=== PATIENT | male | born 1960 | race Caucasian/White ===

== ENCOUNTER 2020-01-22 15:34 | Inpatient (IN) | payer OTHER, SELFPAY ==
[2020-01-22] VITALS (7 sets, daily range): BP systolic 128–174; BP diastolic 86–98; PULSE 76–109; RESP 16–24; TEMP 35.5–36.7; O2SAT 94–98; BMI 38.7; BMI 35.9
--- NOTE | 2020-01-22 15:54 | EKG12_ITS ---
Test Reason : GEN ILLNESS Blood Pressure : / mmHG Vent. Rate : 085 BPM Atrial Rate : 085 BPM P-R Int : 154 ms QRS Dur : 118 ms QT Int : 388 ms P-R-T Axes : 061 236 087 degrees QTc Int : 461 ms Normal sinus rhythm Normal ECG Confirmed by MEENU JACKMAN, KALLI ([id number]), editor farm journal NATHANAEL VALENCIA ([id number]) on 01/24/2020 1:27:35 PM Referred By: Prasad Sadler Confirmed By:KALLI CORRIGAN MD
--- NOTE | 2020-01-22 15:54 | CT_ITS ---
STUDY: CT BRAIN WITHOUT CONTRAST REASON FOR EXAM: Male, 59 years old. OFF BALANCE RADIATION DOSAGE (If Supplied By Facility): CTDIvol = ( 44.99 ) mGy, DLP = ( 829.85 ) mGycm TECHNIQUE: Transaxial CT imaging of the brain was performed without administration of intravenous contrast material. Individualized dose optimization techniques were used for this CT. COMPARISON: No relevant priors. FINDINGS: Normal soft tissue structures. Normal calvarium. Normal size ventricles and extra-axial spaces for the patient''s age. Normal white matter tracts of the cerebral hemispheres. Normal basal ganglia and thalami. Normal brainstem. Normal cerebellum. There is no intracranial hemorrhage. There are no findings of an acute ischemic infarction. Normal visualized paranasal sinuses. CT/Brain/Head without Contrast IMPRESSION: Normal unenhanced CT scan of the brain. Electronically Signed: Colin Hendricks MD (Brooks) at 16:25 EDT , Service support ,
--- NOTE | 2020-01-22 15:58 | ED.DCSUM_ITS ---
- ER Visit Summary Date of Service: 01/22/20 Chief Complaint: Episode of diaphoresis and just not feeling well. History of Present Illness: The patient is a 59 M history of borderline diabetes diagnosed years ago. Says he has no primary care physician and has not seen a physician for 6 years. Currently takes no medications. Also has high cholesterol. Patient states he went outside today and became diaphoretic around 10 AM. Really denies any chest pain. No headache. No head trauma. He is currently on no blood thinners or any other medication. Sitting up mildly short of breath and had some cold chills. Also states that he may be a little off balance today. He denies any history of stroke or prior cardiac disease. He does smoke half pack cigarettes a day. He denies any nausea, vomiting, diarrhea or melena. Physical Examination: Middle-aged male vital signs stable afebrile. Pulse ox 97% room air no signs hypoxia. Patient does not look septic or toxic. No acute distress. H EENT exam unremarkable. Pupils round react light extra motions are intact. Eyes left upper eyelid is a soft tissue tumor. He states it is been there for years. I explained to him this should be evaluated for possible skin cancer. Pupils are unreactive laser motions are intact. Normal speech. No facial droop. Neck nontender. Lungs clear to auscultation bilaterally. Heart regular rhythm no murmur. Chest were nontender. Abdomen soft nontender. Normal bowel sounds no peritoneal signs. Reducible hernia around the umbilicus. Not strangulated nor incarcerated. Not tender. Patient is moving all 4 extremities. 5/5 device engineer strength bilaterally. Dorsi plantarflexion intact. Fingertip to nose and [id number] within normal limits. No obvious ataxia. Neurologically is awake and alert with no focal motor or sensory deficits. NIH is 0. Test Results: Chest x-ray portable 1 view read both myself the radiologist shows no acute abnormality normal cardiac silhouette mediastinum. CT brain shows no acute abnormality. Read by the radiologist and reviewed by me. EKG normal sinus rhythm rate 85 no acute signs of CO or ischemia. CBC white count of 7. Hemoglobin 16. Electrolytes unremarkable glucose 194 normal creatinine and gap. Troponin elevated 14.1 consistent with a non-ST elevation CO. Patient was also walked by nursing staff. And he had no ataxia. This was done because he was stating he felt like he was off balance. Emergency Department Course and Treatment: Middle-aged male who does not have a primary care physician and has not seen a physician for years. Had an episode of being diaphoretic today. Really has an unremarkable exam at this time. Screening labs to be obtained. Undergo a cardiac work-up and a CT of his brain. Exam itself is pretty benign at this time. With no focal motor deficits. Treatment Plan: Repeat exam patient is doing well at 1837. He had I discussed all his test results of the hospitalist on page for admission Disposition: Admission Impression: Acute diaphoresis secondary to non-ST elevation CO History of diabetes Medical noncompliance This note was generated with [employer] dictation software. It may contain incorrect words, spelling, and punctuation that were not noted in review of the chart prior to signing ED Disposition - Plan for ED Patient: Referrals: Care Physician,No Primary [Primary Care Provider] -
--- NOTE | 2020-01-22 16:17 | RAD_ITS ---
STUDY: X-RAY CHEST REASON FOR EXAM: Male, 59 years old. CHILLS, INTERMITTENT RIGHT ARM NUMBNESS AND TINGLING, AND ABD PAIN TECHNIQUE: AP COMPARISON: None. FINDINGS: There is a granuloma in the left lung base. There is no demonstrated pleural abnormality. Normal size heart. Normal mediastinum and domenic. Normal visualized pulmonary arteries. There is atherosclerotic calcification of the aortic arch with tortuosity. Normal visualized thoracic spine. Normal visualized ribs, clavicles, and shoulders. There is no demonstrated abnormality of the visualized soft tissue structures of the upper abdomen. RAD/Chest 1 View (Portable) IMPRESSION: Nonacute portable x-ray examination of the chest. Electronically Signed: Colin Hendricks MD (Brooks) at 16:26 EDT , Service support ,
[2020-01-22 17:37] LABS: Absolute Lymphocyte Count 1.36 X10^3/uL (0.83-4.51); Absolute Neutrophil Count 5.5 X10^3/uL (2.0-7.7); Basophil# 0.03 X10^3/uL; Basophil% 0.4 % (0-1); Eosinophil# 0.01 X10^3/uL; Eosinophils% 0.1 % (0-5); Hematocrit 48.9 % (40-54); Hemoglobin 16.8 g/dL (13.0-16.5); Lymphocyte # 1.36 X10^3/ul (4.0); Lymphocyte % 18.9 % (19-41); Mean Corp Hgb Conc 34.4 g/dL (32-36); Mean Corpuscular Volume 93.1 fL (80-94); Mean Platelet Vol. 9.7 fl (6.2-12.0); Monocyte% 4.2 % (0-10); NRBC Flagged by Analyzer 0 % (0-5); Neutrophil # 5.47 X10^3/uL (2.7-7.7); Neutrophil % 76.1 % (47-70); Platelet Count 113 K/mm3 (150-450); RBC Distribution Width CV 12.2 % (11.6-14.6); RBC Distribution Width SD 42.1 fl (35.1-43.9); Red Blood Count 5.25 M/mm3 (4.6-6.2); White Blood Count 7.2 K/mm3 (4.4-11.0)
[2020-01-22 18:06] LABS: Anion Gap 7 (5-15); BUN 10 mg/dL (7-18); BUN/Creat Ratio 9.5 RATIO (10-20); Calcium,Total 8.9 mg/dL (8.5-10.1); Chloride 102 mmol/L (98-107); Creatinine, Serum 1.05 mg/dL (0.70-1.30); EST Glomerular Filtration Rate 77 mL/min (>60); Est Glom Filt Rate - Afr Amer 94 mL/min (>60); Glucose 194 mg/dL (74-106); Potassium 4.3 mmol/L (3.5-5.1); Sodium Level 135 mmol/L (136-145)
--- NOTE | 2020-01-22 18:49 | HP.PCM_ITS ---
Problem List (1) NSTEMI (non-ST elevated myocardial infarction) Status: Acute (2) Hyperglycemia Status: Acute (3) Tobacco abuse Status: Acute (4) Prediabetes Status: Acute History of Present Illness Date of Admission: 01/22/20 Chief Complaint: Right shoulder pain. The patient is a 59 year old M with a significant history of prediabetes; tobacco abuse; hypertension and hyperlipidemia who presents to the emergency department with right shoulder pain. He rates his right shoulder pain as a 6 out of 10. The pain radiates to his right chest. The pain is aching. The pain is aggravated by moving and by taking a deep breath. The pain started on the morning of the day of admission. Actually his symptoms started 1 hour prior to his shoulder pain and chest pain. His symptoms started with diaphoresis while smoking. Later on he developed chills and malaise. Also he felt off balance and hard to hold onto a wall for about 3 times. Further he had shortness of breath. Also he felt a tingling sensation in his right. He had a decreased registered client associate strength in his right hand. Of note he has a history of right surgery but this continues to his right arm and to his right hand was new. He denied any nausea or vomiting. At emergency department his troponin was found to be severely elevated. Past Medical History Medical History: Medical History (Last Updated 01/22/20 @ 19:[address] Prasad Sadler MD) Borderline diabetes R73.03 Hyperlipidemia E78.5 Hypertension I10 Allergies No Known Allergies Allergy (Verified 01/22/20 15:36) Home Medications: Ambulatory Orders Medication Instructions Recorded NK 01/22/20 Surgical History: - - Gallbladder surgery; bilateral eye surgery; right arm surgery; tympanoplasty; surgery on scrotum; and Left knee surgery Smoking Status: Current every day smoker Tobacco Use: Cigarettes - *Family History Maternal History Items: Heart Disease - His mother had a heart attack at about age 55. At about age 60 his mother had CABG. Paternal History Items: Diabetes, Hypertension, - - Hyperlipidemia Review of Systems Constitutional: Reports: Chills, Malaise. Denies: Fever, Weight Change HEENT: Denies: Head Aches, Sinus Congestion, Sinus Drainage Cardiovascular: Reports: Chest Pain. Denies: Palpitations Respiratory: Denies: Cough, Shortness of breath at rest, Sputum production Gastrointestinal: Denies: Abdominal Pain, Nausea, Vomiting Genitourinary: Denies: Dysuria Musculoskeletal: Denies: Joint Pain, Joint Tenderness Skin: Denies: Rash, Wounds Neurological: Reports: Tingling. Denies: Focal weakness, Numbness Psychiatric: Denies: Anxiety, Depression, Homicidal Ideations, Suicidal Ideations Hematologic/ Lymphatic: Denies: Easy Bruising, Easy Bleeding VTE Information - Inpt Only VTE Present on Admission: No VTE Mechan Device Prophylaxis: None VTE Pharm Prophylaxis ordered?: No Reason prophylaxis not ordered:: Treatment Not Indicated - Therapeutic dose of Lovenox was ordered at the ED for non-STEMI. Patient Problems: Active and Suspected Problems (Last Updated 01/22/20 @ 19:[address] Prasad Sadler MD) NSTEMI (non-ST elevated myocardial infarction) (Acute) Hyperglycemia (Acute) Tobacco abuse (Acute) Prediabetes (Acute) - Physical Exam Vitals/I&O's: Vital Signs Temp Pulse Resp BP Pulse Ox 95.9 F L 78 22 H 128/89 H 95 01/22/20 15:36 01/22/20 17:33 01/22/20 17:33 01/22/20 17:33 01/22/20 17:33 Oxygen Delivery Method Room Air Weight: 115.666 kg Body Mass Index (BMI) 38.7 General: Alert, Oriented x3, Cooperative HEENT: Atraumatic, PERRLA, EOMI, Normocephalic, - - Ulcer on left eyelid Neck: Supple, No JVD, Negative Carotid Bruits Lungs: Clear to auscultation, Normal air movement, No rhonchi, No wheeze, No rales Cardiovascular: Regular rate, Regular Rhythm, Normal S1, Normal S2, No murmurs Abdomen: Bowel Sounds Present, Soft, Non Tender Extremities: No edema, Capillary Refill Less than 3 Seconds Skin: No rashes, No breakdown Musculoskeletal: No Tenderness to Palpation of Joints or Extremities Neurological: Cranial nerves II-XII grossly intact Psych/Mental Status: Normal Affect, Appropriate Laboratory Results 01/22/20 17:30: WBC 7.2, RBC 5.25, Hgb 16.8 H, Hct 48.9, MCV 93.1, MCH 32.0, MCHC 34.4, RDW Std Deviation 42.1, RDW Coeff of Benitez 12.2, Plt Count 113 L, MPV 9.7, Immature Gran % (Auto) 0.300, Neut % (Auto) 76.1 H, Lymph % (Auto) 18.9 L, [place] % (Auto) 4.2, Eos % (Auto) 0.1, Baso % (Auto) 0.4, Absolute Neuts (auto) 5.5, Absolute Lymphs (auto) 1.36, Nucleated RBC % 0 01/22/20 17:30: Sodium 135 L, Potassium 4.3, Chloride 102, Carbon Dioxide 26.0, Anion Gap 7, BUN 10, Creatinine 1.05, Estim Creat Clear Calc 75.10, Est GFR (MDRD) Af Amer 94, Est GFR (MDRD) Non-Af 77, BUN/Creatinine Ratio 9.5 L, Glucose 194 H, Calcium 8.9, Troponin I 14.100 H* Assessment/Plan All Active Problems (Last Updated 01/22/20 @ 19:[address] Prasad Sadler MD) NSTEMI (non-ST elevated myocardial infarction) (Acute) Hyperglycemia (Acute) Tobacco abuse (Acute) Prediabetes (Acute) The patient is a 59 year old M with a significant history of prediabetes; tobac co abuse; hypertension and hyperlipidemia who presents to the emergency department with right shoulder pain; right chest pain; diaphoresis;chills; malaise; feeling off balance; right arm tingling and decreased registered client associate strength in the right hand and who was found to have severely elevated troponin.. Non-ST elevation KS Place on a monitored bed at progressive care unit on telemetry. CXR image independently visualized by myself and by radiologist showed no acute cardiopulmonary process. EKG tracing was independently visualized. EKG tracing showed sinus rhythm with no ST or T wave abnormalities. Brain CT at the ED was unremarkable. Aspirin 325 mg x 1 was ordered at emergency department. ASA 81 mg p.o. daily ordered SL NTG 0.4 mg prn as needed for chest pain ordered Morphine as needed for pain ordered Emergent department doctor discussed the case with cardiology: Therapeutic dose of Lovenox x1 and n.p.o. after midnight was recommended. We will check lipid panel. Statin: We will start on Lipitor 40 mg nightly. Serial cardiac enzymes ordered Stat EKG as needed for chest pain Inpatient cardiology consult. Hypertension Not on any home medication. PRN labetalol ordered. Hyperlipidemia Lipitor ordered. Tobacco abuse Counseled Nicotine patch prescribed Hyperglycemia Reported history of borderline diabetes. Check A1c. Cardiac diet; calorie restricted. Since patient is being kept on n.p.o. after midnight we will put patient on Accu-Chek with low-dose correction scale every 6 hrsas needed. DVT prophylaxis. Received therapy dose of Lovenox in the emergency department. Inpatient E&M: [id number] Init Hosp L3
[2020-01-22] MEDS: Aspirin 325 MG Tablet PO (19:21)
[2020-01-22] MEDS: Enoxaparin 120 MG/0.8 ML Syringe SC (19:31)
--- NOTE | 2020-01-22 19:41 | EKG12_ITS ---
Test Reason : AM EKG Blood Pressure : / mmHG Vent. Rate : 085 BPM Atrial Rate : 085 BPM P-R Int : 148 ms QRS Dur : 108 ms QT Int : 370 ms P-R-T Axes : 045 207 114 degrees QTc Int : 440 ms Normal sinus rhythm Nonspecfic T- wave abnormality Abnormal ECG Confirmed by KATHERINE JACKMAN, MILTON ([id number]), publication editor NATHANAEL VALENCIA ([id number]) on 01/26/2020 2:05:12 PM Referred By: Prasad Sadler Confirmed By:MILTON MURPHY MD
[2020-01-22] MEDS: Atorvastatin Calcium 40 MG Tablet PO (21:59)
[2020-01-23] VITALS (18 sets, daily range): BP systolic 106–148; BP diastolic 63–90; PULSE 70–96; RESP 12–24; TEMP 36.6–36.9; O2SAT 94–98
[2020-01-23 00:06] LABS: Bedside Glucose 158 mg/dL (70-110)
[2020-01-23] MEDS: 0.9% Saline Lock 10 ML Syringe IV ×3 (04:54→21:38)
[2020-01-23 05:06] LABS: International Normalized Ratio 1.1; Prothrombin Time (Protime)PT. 13.8 SECONDS (11.7-14.9)
[2020-01-23 05:14] LABS: Cholesterol 169 mg/dL (200); High Density Lipoprotein 19 mg/dL; Triglycerides 272 mg/dL; Very Low Density Lipoprotein 54 mg/dL (5-40)
--- NOTE | 2020-01-23 05:55 | EKG12_ITS ---
Test Reason : AM EKG Blood Pressure : / mmHG Vent. Rate : 068 BPM Atrial Rate : 068 BPM P-R Int : 146 ms QRS Dur : 114 ms QT Int : 398 ms P-R-T Axes : 065 205 112 degrees QTc Int : 423 ms Normal sinus rhythm Nonspecific T wave abnormality Abnormal ECG When compared with ECG of 22-JAN-2020 20:19, MANUAL COMPARISON REQUIRED, DATA IS UNCONFIRMED Confirmed by RACHAEL JACKMAN, PRITI ([id number]), restaurant expeditor FRANTZ SMALLS ([id number]) on 02/02/2020 1:07:20 PM Referred By: Prasad Sadler Confirmed By:OLIVERIO CANO MD
[2020-01-23] MEDS: Aspirin 81 MG TAB.CHEW PO (06:25)
[2020-01-23 07:00] LABS: Bedside Glucose 190 mg/dL (70-110)
--- NOTE | 2020-01-23 07:38 | CON.PCM_ITS ---
Reason for Consult Date of Consultation: 01/23/20 Reason for Consultation: Abnormal cardiac enzymes History of Present Illness: The patient is a 59 year old M with no definitive previous medical history other than borderline diabetes, borderline hypertension and possibly hyperlipidemia. He presented to the hospital yesterday after complaining of fatigue as well as diaphoresis. He had woken up the morning before and just felt bad and laid in bed most of the day. Towards the end of the day he decided to present to the emergency room for further evaluation and management. He has had no recent sick contacts. He denies any chest pain paroxysmal nocturnal dyspnea or pedal edema he is not had any palpitations. In the emergency room he was seen and did not have any EKG changes. His cardiac troponin was however noted to be elevated he was given aspirin and admitted. Cardiology was asked to see him. [] Past Medical History Allergies/Adverse Reactions: Allergies No Known Allergies Allergy (Verified 01/22/20 15:36) Home Medications: Ambulatory Orders Medication Instructions Recorded NK 01/22/20 Surgical History: - - Gallbladder surgery; bilateral eye surgery; right arm surgery; tympanoplasty; surgery on scrotum; and Left knee surgery - *Family History Maternal History Items: Heart Disease - His mother had a heart attack at about age 55. At about age 60 his mother had CABG. Paternal History Items: Diabetes, Hypertension, - - Hyperlipidemia Smoking Status: Current every day smoker Tobacco Use: Cigarettes Alcohol: None Drugs: None Review of Systems - Review of Systems General: Reports: Fatigue, Malaise. Denies: Fever, Night Sweats HEENT: Denies: Vision Change Cardiovascular: Denies: Chest Discomfort, Shortness of Breath, Orthopnea, PND, Peripheral Edema, Palpitations, Lightheadedness, Dizziness, Near Syncope, Syncope Respiratory: Denies: Cough, Sputum Production, Hemoptysis Gastrointestinal: Denies: Hematemesis, Hematochezia, Melena Genitourinary: Denies: Dysuria, Hematuria Skin: Denies: Rash Neurological: Reports: Weakness. Denies: Dizziness Psychiatric: Denies: Anxiety Endocrine: Denies: Unexplained Weight Loss Hematologic/ Lymphatic: Denies: Anemia Subjectve: Middle-aged man in no distress Objective: Vital Signs Temp Pulse Resp BP Pulse Ox 98.3 F 77 16 121/90 H 96 01/23/20 04:51 01/23/20 04:51 01/23/20 04:51 01/23/20 04:51 01/23/20 04:51 Oxygen Flow Rate (L/min) 2 Oxygen Delivery Method Nasal Cannula Weight: 236 lb 5.369 oz Body Mass Index (BMI) 35.9 Intake and Output for Last 24 Hours 01/21/20 01/22/20 01/23/20 23:59 23:59 23:59 Intake Total 240 / 240 0 / 0 Balance 240 / 240 0 / 0 General: Awake, Alert, Oriented x 3 HEENT: PERRL, EOMI, Sclera Non Icteric Neck: Supple, Good ROM, No Lymph Node Enlargement Lungs: Clear to auscultation Cardiovascular: Regular Rhythm, Normal S1, Normal S2, No Murmurs, No Rubs, No Gallops Vascular: No Carotid Bruits, Normal Femoral Pulses, Normal Radial Pulses, Normal Dorsalis Pedal Pulse, Normal Posterior Tibial Pulses Abdomen: Bowel Sounds Present, Soft, Non Tender, No HSM, No Organomegaly Extremities: No Cyanosis, No Clubbing, No edema Musculoskeletal: No Erythema Skin: No Rashes Lymphatic: No Lymph Node Enlargement Neurological: No Focal Motor or Sensory Deficit Psych/Mental Status: Appropriate 01/22/20 17:30: WBC 7.2, RBC 5.25, Hgb 16.8 H, Hct 48.9, MCV 93.1, MCH 32.0, MCHC 34.4, Plt Count 113 L, MPV 9.7, Immature Gran % (Auto) 0.300, Neut % (Auto) 76.1 H, Lymph % (Auto) 18.9 L, [place] % (Auto) 4.2, Eos % (Auto) 0.1, Baso % (Auto) 0.4, Absolute Neuts (auto) 5.5, Nucleated RBC % 0 01/22/20 17:30: Sodium 135 L, Potassium 4.3, Chloride 102, Carbon Dioxide 26.0, Anion Gap 7, BUN 10, Creatinine 1.05, Est GFR (MDRD) Af Amer 94, Est GFR (MDRD) Non-Af 77, BUN/Creatinine Ratio 9.5 L, Glucose 194 H, Calcium 8.9, Troponin I 14.100 H* 01/22/20 20:40: Troponin I 43.750 H* 01/22/20 23:48: Troponin I 77.000 H* 01/23/20 04:48: PT 13.8, INR 1.1 01/23/20 04:48: Triglycerides 272 H, Cholesterol 169, LDL Cholesterol 96, VLDL Cholesterol 54 H, HDL Cholesterol 19 L 01/23/20 04:48: Troponin I 31.400 H* Rhythm: EKG: Normal sinus rhythm with no acute changes ECHO: Stress Test: Cardiac Cath: PCI: CT Surgery: Holter monitor: EPS: PPM: CXR: Chest CT Scan: Assessment/Plan 1. Non-ST elevation myocardial infarction * Patient presents with fatigue and is noted to have a markedly elevated troponin level suggestive of a non-ST elevation myocardial infarction. He has had no previous cardiac condition. Based on the above he likely has coronary artery disease and I would recommend that we investigate the above with a cardiac catheterization. * He has been administered aspirin and a statin * Will start beta-le * He will be taken to the Guidance Director within the next few hours and depending on the findings further recommendations will be made. * 2. Risk factor modification * He does have evidence of a markedly reduced HDL putting him at risk for significant coronary artery disease. * Would recommend aggressive risk factor modification. * * Thank you for allowing me to participate in the care of your patient. Please don't hesitate to call if any issues arise.
[2020-01-23] MEDS: 0.9% Normal Saline 1,000 ML 15 ML IV (08:15)
[2020-01-23] MEDS: Carvedilol 3.125 MG TABLET PO ×2 (08:24→21:47)
--- NOTE | 2020-01-23 08:35 | NURSING ---
new id band placed with corrected spelling first name. no questions voiced regarding heart cath plans this am. ns up and running to lt ac iv. pt up to void. denies any cp this am. o2 on at 2l per protocol. coreg given and bp remains elevated at 161/85. pt's sig other aware but probably will not come in per pt. pre angiogram checklist completed and consent signed and on chart. 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
[2020-01-23 08:36] LABS: Hemoglobin A1c 8.8 % (3.8-5.6)
--- NOTE | 2020-01-23 09:36 | CL.D_ITS ---
Patient Name: LOKI ENCARNACION Study Date: 01/23/2020 Performing: Molina Artis MD Ht: 68.11 inches 173 cm : 1960 Wt: 235.89 lbs 107 kg Age: 59 Gender: male BSA: 2.2 PROCEDURE(S) PERFORMED [id number]/LV CLINICAL PROFILE AND INDICATIONS Indications: ACS <= 24 hrs Heart Failure: None Stress/Imaging Stress/Image Study Performed: No CONCLUSIONS Coronary artery disease involving a recently occluded second obtuse marginal vessel and high-grade st enosis noted in the proximal right posterolateral vessel. Diffuse disease noted in the LAD.. RECOMMENDATIONS Referred for immediate PCI DESCRIPTION OF PROCEDURE The patient arrived to the procedure lab. The risks and benefits of the procedure as well as a full d escription of our services here and current unavailability of surgical backup were fully explained to the patient and/or their significant other prior to the catheterization. The Timeout was completed, verifying the correct patient and procedure. The patient's procedural site was prepped and draped in the usual fashion. Local anesthetic was given subcutaneously to right radial region with Lidocaine 2% . Using a modified Seldinger technique, arterial access was obtained via the right radial artery, a 6 Fr sheath was inserted. Left Coronary Artery selective angiography was performed in multiple views u sing a 5 Fr. 4.0 [place] catheter. Right Coronary Artery selective angiography was then performed in mu ltiple views using a 5 Fr. JR 5 catheter. Left Ventriculography was performed in CH[place]RI[place] projection using a 5 Fr. Pigtail catheter. LV to AO pullback pressures were then recorded. CORONARY ANGIOGRAPHY DOMINANCE: Right Dominant LEFT HEART ASSESSMENT Left Ventricular Ejection Fraction: by LV Gram 45 % Global Hypokinesis - Mild Depressed Left Ventricular systolic function LEFT MAIN: Angiographically normal LEFT ANTERIOR DESCENDING ARTERY: Diffusely diseased in multiple areas with the proximal being no more than 50% in the distalmost 70% stenosis CIRCUMFLEX ARTERY: Mild luminal irregularities less than 30% OM 2: Proximal - is occluded RAMUS: Mild luminal irregularities less than 30% RIGHT CORONARY ARTERY: PROX RCA: Mild luminal irregularities less than 30% MID RCA: Mild luminal irregularities less than 30% RT PLV: 80 % Stenosis COMPLICATIONS PROCEDURE MEDICATIONS Versed 1 mg IV Fentanyl 50 mcg IV Versed 1 mg IV Oxygen: 2 L/min via nasal cannula Heparin diluted in 23cc Heparinized saline. Patient given 10cc IA of this solution. 01/23/2020 08:58: 39 Heparin 6000 unit(s) IV 01/23/2020 09:23:18 Verapamil 2.5mg, Ntg 100mcgs, 2000 units of Heparin diluted in 23cc Heparinized saline. Patient give n 10cc IA of this solution. 01/23/2020 08:58:39 SUMMARY OF HEMODYNAMIC DATA Time AIR REST ECG 08:42:04 AO 144/107 (124) SA 09:02:12 LV 136/21, 27 09:15:04 LV 139/22, 28 09:15:10 LV 142/26, 29 09:16:13 LVp 145/28, 38 09:16:17 AOp 146/97 (118) 09:16:22 Signed By Molina Artis MD On 01/23/2020 9:35:47 AM Molina Artis MD
[2020-01-23 10:50] LABS: ACT Activated Clotting Time 213 sec (74-137)
--- NOTE | 2020-01-23 11:00 | EKG12_ITS ---
Test Reason : Blood Pressure : / mmHG Vent. Rate : 081 BPM Atrial Rate : 081 BPM P-R Int : 144 ms QRS Dur : 108 ms QT Int : 382 ms P-R-T Axes : 065 223 100 degrees QTc Int : 443 ms Normal sinus rhythm Normal ECG Confirmed by KATHERINE JACKMAN, MILTON ([id number]), non linear editor NATHANAEL VALENCIA ([id number]) on 01/26/2020 2:06:10 PM Referred By: Prasad Sadler Confirmed By:MILTON MURPHY MD
[2020-01-23] MEDS: Insulin Lispro 100 UNIT/ML INSULN.PEN SC ×2 (12:29→17:03)
[2020-01-23 12:50] LABS: Bedside Glucose 218 mg/dL (70-110)
--- NOTE | 2020-01-23 13:00 | CASEMGMT ---
TRAE HERNANDEZ assessment: Face to Face with patient for initial transition planning/care coordination assessment. TRAE HERNANDEZ introduced self and role at [facility], pt voices understanding and consents to assessment at this time. Pt is lying in bed in no distress at this time. Pt is A/Ox4 at this time and answers all questions appropriately at this time. Care providers, pharmacy, and demographics verified at this time. Presentation: Pt reports chills, intermittent right arm numbness/tingling, abd pain Admitting dx: NSTEMI PCP: Pt states no current PCP but states would like info on [facility] at this time and info provided at this time. Specialists: Pt states no current specialists at this time. [facility]erred [facility]acy: [facility] Insurance: Self pay Prescription Benefit: Self pay Living Will/HPOA: Pt states does not have LW/HPOA and declines AD info at this time. LNOK: Mary Jung, sig other Living Arrangements: Pt states lives with sig other and her son in 1 story apartment with 2 steps in and states no concerns at home at this time. Pt states is independent with ADL's. Transportation: Pt states drives self and states no transportation concerns at this time. DME/HHC: Pt states no current DME or need for any at this time. Pt states no hx of HHC or SNF in the past. Pt states no concerns with going home at time of discharge. Pt states is retired. Pt states smokes a pack of cigarettes daily and does not drink ETOH. Pt states no further concerns/needs at this time. CM to follow for any further discharge planning/needs. Advised pt to ask for CM if any further questions/concerns/needs arise, voices understanding. Pt Goal: Home Plan[place] TRAE HERNANDEZ
[2020-01-23 13:27] LABS: Hematocrit 48.6 % (40-54); Hemoglobin 16.5 g/dL (13.0-16.5); Mean Corpuscular Hgb 32.1 pg (27.0-32.0); Mean Corpuscular Volume 94.6 fL (80-94); Mean Platelet Vol. 9.9 fl (6.2-12.0); Platelet Count 127 K/mm3 (150-450); RBC Distribution Width CV 12.8 % (11.6-14.6); RBC Distribution Width SD 44.8 fl (35.1-43.9); Red Blood Count 5.14 M/mm3 (4.6-6.2); White Blood Count 8.2 K/mm3 (4.4-11.0)
--- NOTE | 2020-01-23 14:06 | CRPHASE1 ---
Patient Communication PHII Cardiac Rehab Discussed with Patient:: Yes Guide to Cardiac Rehab Given to Patient:: Yes Cardiac Rehab Facility Choice List Given to Patient:: Yes Choice Program [facility] CR PHII:: Communication Given to CR, Refer to [facility] Drama Director:: Pavel Hubbard Refer Phase II Cardiac Rehab:: Yes - Pt states he doesn't have insurance at this time Risk Factors/Lifestyle Laboratory Values: Cardiac Rehab Phase I Labs Hemoglobin A1c 8.8 % (3.8-5.6) H 01/23/20 04:48 Triglycerides 272 mg/dL (-199) H 01/23/20 04:48 Cholesterol 169 mg/dL (200) 01/23/20 04:48 LDL Cholesterol 96 mg/dL (0-130) 01/23/20 04:48 HDL Cholesterol 19 mg/dL (40-) L 01/23/20 04:48 Cardiac Rehabilitation Info Cardiac Rehabilitation Program Information: Cardiac Rehabilitation is important for patients like you who are recovering from a heart problem. Cardiac rehabilitation programs are recognized as integral to the continued care of the patient with coronary heart disease. The cardiac rehabilitation program is designed to optimize a patient's physical, psychological, and social functioning. Health managed care analyst work in cardiac rehabilitation programs and assist you with getting the treatments you need to get stronger and healthier - like exercise, healthy eating habits, and medications. Cardiac rehabilitation has been show to help people with heart problems live longer and have better life enjoyment than people who do not go to cardiac rehabilitation. Please contact the Cardiac Rehabilitation Program at [facility] at in two weeks if you have not heard from them.
--- NOTE | 2020-01-23 14:09 | CRPH1.INST_ITS ---
General Education CAD and cardiac anatomy and function:: Needs reinforcement Explanation of diagnoses and procedures:: Needs reinforcement Sign/Symptoms of AL:: Needs reinforcement Antiplatelet therapy: Needs reinforcement Proper use of NTG-SL: Needs reinforcement Emergency procedures and activation of EMS: Needs reinforcement Compliance of all prescribed medications: Needs reinforcement Smoking Patient Nicotine/Smoking Risk Factors Are:: Cigarettes Recommendations Include:: Smoking cessation strategies/Smoking packet, Partici pation in a smoking cessation program Nicotine/Smoking Response Code:: Needs reinforcement Dyslipidemia Patient Dyslipidemia Risk Factors Are:: Total Cholesterol - 169, Triglycerides - 272, HDL - 19, LDL - 96 Overweight/Obesity Patient Overweight/Obesity Risk Factors Are:: Obesity - > or = 30 Recommendations Include:: Weight loss of 5-10%, Reduced calorie diet, Exercise 5-7 times/week Overweight/Obesity:: Needs reinforcement Hypertension Recommendations Include:: Maintain BP <130/85, BP <130/80 if diabetic, DASH dietary guidelines, Decrease/maintain normal body weight, Moderation of ETOH Hypertension:: Needs reinforcement Heart Disease Heart Disease Response Code:: Needs reinforcement Diabetes Patient Diabetes Risk Factors Are:: Elevated blood sugars Recommendations Include:: Maintain fasting blood sugars 70-110 md/dL, Maintain HgbA1c of 6% or less, Monitor blood sugar as prescribed, Diabetic dietary guidelines, Decrease/maintain body weight Diabetes:: Needs reinforcement Metabolic Syndrome Patient Metabolic Syndrome Risk Factors Are [3 of 5]:: Fasting blood sugar > 100 mg/dL, Waist circumference > 35 [female] or 40 [male], High triglyceride >150, Hypertension, Low HDL <40 [male] or < 50 [female] Recommendations Include:: Reinforce compliance to risk factor modifications, Encouraged follow-up with Primary Care Physician Metabolic Syndrome Response Code:: Needs reinforcement Sedentary Patient Sedentary Risk Factors Are:: Lack of regular exercise Recommendations Include:: Aerobic exercise 5-7 times/week for 20-30 minutes continuously, Benefits of regular exercise, Discussed home walking program, Monitored Outpatient Cardiac Rehab Sedentary Response Code:: Needs reinforcement Stress Patient Stress Risk Factors Are:: Patient denies stress as a risk factor Stress Response Code:: Needs reinforcement
--- NOTE | 2020-01-23 14:16 | PCM.PN.HOSP ---
Patient Problems: Active and Suspected Problems (Last Updated 01/23/20 @ 09:49 by Lizzy Santa) History of coronary artery stent placement (Acute 01/23/20) Atherosclerotic heart disease of [place] coronary artery without angina pectoris (Acute) NSTEMI (non-ST elevated myocardial infarction) (Acute 01/22/20) Hyperglycemia (Acute) Tobacco abuse (Acute) Prediabetes (Acute) Reason for Visit: NSTEMI Subjective: Feeling better post catheterization and stent placement. Patient today that he had right-sided chest pain and right shoulder pain and diaphoresis. Those symptoms have resolved. Vitals/I&O's: Vital Signs Temp Pulse Resp BP Pulse Ox 36.7 C 85 20 H 148/87 H 96 01/23/20 11:00 01/23/20 12:49 01/23/20 12:49 01/23/20 12:49 01/23/20 12:49 Oxygen Flow Rate (L/min) 2 Oxygen Delivery Method Room Air Weight: 107.2 kg Body Mass Index (BMI) 35.9 Intake and Output for Last 24 Hours 01/21/20 01/22/20 01/23/20 23:59 23:59 23:59 Intake Total 240 / 240 240 / 240 Output Total 450 / 450 Balance 240 / 240 -210 / -210 General: Alert, No apparent distress HEENT: Atraumatic, Normocephalic Neck: No Nodes, Thyroid Normal Size and Texture Lungs: Clear to auscultation, Normal air movement, No rhonchi, No wheeze Cardiovascular: Regular rate, Regular Rhythm, Normal S1, Normal S2, No murmurs Abdomen: Bowel Sounds Present, Soft, Non Tender, Non-Distended Extremities: No edema, No Calf Tenderness Skin: No rashes, No breakdown Psych/Mental Status: Normal Affect, Appropriate Laboratory Results 01/22/20 17:30: WBC 7.2, RBC 5.25, Hgb 16.8 H, Hct 48.9, MCV 93.1, MCH 32.0, MCHC 34.4, RDW Std Deviation 42.1, RDW Coeff of Benitez 12.2, Plt Count 113 L, MPV 9.7, Immature Gran % (Auto) 0.300, Neut % (Auto) 76.1 H, Lymph % (Auto) 18.9 L, [place] % (Auto) 4.2, Eos % (Auto) 0.1, Baso % (Auto) 0.4, Absolute Neuts (auto) 5.5, Absolute Lymphs (auto) 1.36, Nucleated RBC % 0 01/22/20 17:30: Sodium 135 L, Potassium 4.3, Chloride 102, Carbon Dioxide 26.0, Anion Gap 7, BUN 10, Creatinine 1.05, Estim Creat Clear Calc 75.10, Est GFR (MDRD) Af Amer 94, Est GFR (MDRD) Non-Af 77, BUN/Creatinine Ratio 9.5 L, Glucose 194 H, Calcium 8.9, Troponin I 14.100 H* 01/22/20 20:40: Troponin I 43.750 H* 01/22/20 23:48: Troponin I 77.000 H* 01/22/20 23:54: POC Glucose 158 H 01/23/20 04:48: PT 13.8, INR 1.1 01/23/20 04:48: Triglycerides 272 H, Cholesterol 169, LDL Cholesterol 96, VLDL Cholesterol 54 H, HDL Cholesterol 19 L 01/23/20 04:48: Hemoglobin A1c 8.8 H 01/23/20 04:48: Troponin I 31.400 H* 01/23/20 06:16: POC Glucose 190 H 01/23/20 10:12: Activated Clotting Time 213 H 01/23/20 11:48: POC Glucose 218 H 01/23/20 13:00: WBC 8.2, RBC 5.14, Hgb 16.5, Hct 48.6, MCV 94.6 H, MCH 32.1 H, MCHC 34.0, RDW Std Deviation 44.8 H, RDW Coeff of Benitez 12.8, Plt Count 127 L, MPV 9.9 Current Medications Acetaminophen (Tylenol) 650 mg PO Q6H PRN PRN PRN Reason: Pain Score 1-10/Temp > 100.7 F Aspirin ([facility]in, Baby) [facility] Last Admin: 01/23/20 06:25 Dose: 81 mg Documented by: Atorvastatin Calcium (Lipitor) 40 mg PO QHS [facility] Last Admin: 01/22/20 21:59 Dose: 40 mg Documented by: Atropine Sulfate () 0.5 mg IV UD PRN PRN Reason: HR <50 bpm Carvedilol (Coreg) 3.125 mg PO BID [facility] Last Admin: 01/23/20 08:24 Dose: 3.125 mg Documented by: Dextrose (D50w Syringe) 0 gm IV X1 PRN; Protocol PRN Reason: Hypoglycemia Glucagon () 1 mg IM .X1 PRN PRN Reason: Hypoglycemia Heparin Sodium (Beef Lung) (Heparin 500 Unit/5 Ml (100/Ml)) 500 unit IV UD PRN PRN Reason: HEPARIN FLUSH Sodium Chloride () 250 mls @ 15 mls/hr IV .[id number] PRN PRN Reason: Saline Flush Sodium Chloride () 250 mls @ 15 mls/hr IV .[id number] PRN PRN Reason: Additional IVPB Infusion Sodium Chloride () 1,000 mls @ 15 mls/hr IV .Q48H [facility] Last Admin: 01/23/20 08:15 Dose: 15 mls/hr Documented by: Insulin Human Lispro (Humalog Kwikpen (Bkc)) 0 unit SC Q6 [facility]; Protocol Last Admin: 01/23/20 12:29 Dose: 1 u Documented by: Labetalol HCl (Trandate) 10 mg IV Q6H PRN PRN PRN Reason: SBP > 160 OR DBP > 120 Melatonin (Melatonin) 3 mg PO QHS PRN PRN PRN Reason: INSOMNIA Morphine Sulfate () 2 mg IV Q3H PRN PRN PRN Reason: Pain Score 6-10/10 Nicotine (Nicoderm Cq (Pbkc)) 21 mg TRANSDERM. DAILY [facility] Last Admin: 01/23/20 12:29 Dose: 21 mg Documented by: Nitroglycerin (Nitrostat) 0.4 mg SUBLINGUAL Q5M PRN PRN Reason: CARDIAC/CHEST PAIN Ondansetron HCl (Zofran) 4 mg IV Q8H PRN PRN PRN Reason: NAUSEA/VOMITING Sodium Chloride () 10 - 40 ml IV UD PRN PRN Reason: SALINE FLUSH Last Admin: 01/23/20 08:15 Dose: 10 ml Documented by: Sodium Chloride () 500 ml IV BOLUS PRN PRN Reason: VASO-VAGAL PROTOCOL Ticagrelor (Brilinta) 90 mg PO BID [facility] STROKE Vital Signs/Narrative: Vital Signs Temp Pulse Resp BP Pulse Ox 01/23/20 12:49 85 20 H 148/87 H 96 01/23/20 12:10 83 18 133/82 H 97 01/23/20 11:41 97 01/23/20 11:35 79 12 131/76 H 97 01/23/20 11:10 88 18 133/74 H 98 01/23/20 11:00 36.7 C 86 20 H 135/74 H 95 Medical Necessity - Tobacco Use Smoking Status: Current every day smoker Tobacco Use: Cigarettes Assessment/Plan All Active Problems (Last Updated 01/23/20 @ 09:49 by Lizzy Santa) History of coronary artery stent placement (Acute 01/23/20) Atherosclerotic heart disease of [place] coronary artery without angina pectoris (Acute) NSTEMI (non-ST elevated myocardial infarction) (Acute 01/22/20) Hyperglycemia (Acute) Tobacco abuse (Acute) Prediabetes (Acute) 1. Non-ST elevation myocardial infarction Status post stented LAD. Continue with aspirin, atorvastatin, carvedilol, ticagrelor 2. Ischemic cardiomyopathy EF noted to be 40% Further management per cardiology. 3. Diabetes mellitus type 2 A1c 8.8 On sliding scale insulin Add basal insulin Inpatient E&M: 06569 Subs Hosp L2
--- NOTE | 2020-01-23 14:42 | NURSING ---
1400-no drng obs or hematoma after rt radial tr band remmoved and opsite placed. teaching given on limiting use of arm and to call immediately for any sign of drng.
--- NOTE | 2020-01-23 17:15 | PCM.CONS.GEN ---
Problem List (1) Melena Status: Acute Reason for Consult Date of Consultation: 01/23/20 History of Present Illness: The patient is a 59 year old M who was admitted to the hospital with a non-STEMI underwent a cardiac catheterization where a stent was placed. While up on the floor he developed several episodes of melanotic stool. He is not complaining of any abdominal pain at this time. He is not having any nausea or hematemesis. He has never had GI bleeds is never been diagnosed with peptic ulcer disease. He does report having a laparoscopy where they did a surgery on his gallbladder but they did not remove it. Past Medical History Medical History: Medical History (Last Reviewed 01/23/20 @ 17:[address] Juancho Meade MD) Atherosclerotic heart disease of [place] coronary artery without angina pectoris (Acute) I25.10 NSTEMI (non-ST elevated myocardial infarction) (Acute) Onset Date: 01/22/20 I21.4 Hyperglycemia (Acute) R73.9 Tobacco abuse (Acute) Z72.0 Prediabetes (Acute) R73.03 Borderline diabetes R73.03 Hyperlipidemia E78.5 Hypertension I10 Allergies No Known Allergies Allergy (Verified 01/22/20 15:36) Home Medications: Ambulatory Orders Medication Instructions Recorded NK 01/22/20 Surgical History: Surgical History (Last Reviewed 01/23/20 @ 17:[address] Juancho Meade MD) History of coronary artery stent placement (Acute) Onset Date: 01/23/20 Z95.5 Surgical History: - - Gallbladder surgery; bilateral eye surgery; right arm surgery; tympanoplasty; surgery on scrotum; and Left knee surgery Smoking Status: Current every day smoker Tobacco Use: Cigarettes Alcohol: None Drugs: None - *Family History Maternal History Items: Heart Disease - His mother had a heart attack at about age 55. At about age 60 his mother had CABG. Paternal History Items: Diabetes, Hypertension, - - Hyperlipidemia Review of Systems Constitutional: Denies: Chills, Fever, Weight Change Cardiovascular: Denies: Chest Pain, Chest Pressure, Chest Tightness, Palpitations Respiratory: Denies: Cough, Hemoptysis, Shortness of breath at rest, Shortness of breath upon exertion, Wheezing Gastrointestinal: Denies: Abdominal Pain, Constipation, Diarrhea, Hematemesis, Nausea, Melena, Vomiting Patient Problems: Active and Suspected Problems (Last Updated 01/23/20 @ 09:49 by Lizzy Santa) Melena (Acute) History of coronary artery stent placement (Acute 01/23/20) Atherosclerotic heart disease of [place] coronary artery without angina pectoris (Acute) NSTEMI (non-ST elevated myocardial infarction) (Acute 01/22/20) Hyperglycemia (Acute) Tobacco abuse (Acute) Prediabetes (Acute) - Physical Exam Vitals/I&O's: Vital Signs Temp Pulse Resp BP Pulse Ox 98.0 F 83 24 H 118/69 98 01/23/20 11:00 01/23/20 14:40 01/23/20 14:40 01/23/20 14:40 01/23/20 14:40 Oxygen Flow Rate (L/min) 2 Oxygen Delivery Method Room Air Weight: 236 lb 5.369 oz Body Mass Index (BMI) 35.9 Intake and Output for Last 24 Hours 01/21/20 01/22/20 01/23/20 23:59 23:59 23:59 Intake Total 240 / 240 240 / 240 Output Total 450 / 450 Balance 240 / 240 -210 / -210 General: Alert, Oriented x3 Lungs: Clear to auscultation Cardiovascular: Regular rate, Regular Rhythm, No murmurs Abdomen: Bowel Sounds Present, Soft, Non Tender, Non-Distended Laboratory Results 01/22/20 17:30: WBC 7.2, RBC 5.25, Hgb 16.8 H, Hct 48.9, MCV 93.1, MCH 32.0, MCHC 34.4, RDW Std Deviation 42.1, RDW Coeff of Benitez 12.2, Plt Count 113 L, MPV 9.7, Immature Gran % (Auto) 0.300, Neut % (Auto) 76.1 H, Lymph % (Auto) 18.9 L, [place] % (Auto) 4.2, Eos % (Auto) 0.1, Baso % (Auto) 0.4, Absolute Neuts (auto) 5.5, Absolute Lymphs (auto) 1.36, Nucleated RBC % 0 01/22/20 17:30: Sodium 135 L, Potassium 4.3, Chloride 102, Carbon Dioxide 26.0, Anion Gap 7, BUN 10, Creatinine 1.05, Estim Creat Clear Calc 75.10, Est GFR (MDRD) Af Amer 94, Est GFR (MDRD) Non-Af 77, BUN/Creatinine Ratio 9.5 L, Glucose 194 H, Calcium 8.9, Troponin I 14.100 H* 01/22/20 20:40: Troponin I 43.750 H* 01/22/20 23:48: Troponin I 77.000 H* 01/22/20 23:54: POC Glucose 158 H 01/23/20 04:48: PT 13.8, INR 1.1 01/23/20 04:48: Triglycerides 272 H, Cholesterol 169, LDL Cholesterol 96, VLDL Cholesterol 54 H, HDL Cholesterol 19 L 01/23/20 04:48: Hemoglobin A1c 8.8 H 01/23/20 04:48: Troponin I 31.400 H* 01/23/20 06:16: POC Glucose 190 H 01/23/20 10:12: Activated Clotting Time 213 H 01/23/20 11:48: POC Glucose 218 H 01/23/20 13:00: WBC 8.2, RBC 5.14, Hgb 16.5, Hct 48.6, MCV 94.6 H, MCH 32.1 H, MCHC 34.0, RDW Std Deviation 44.8 H, RDW Coeff of Benitez 12.8, Plt Count 127 L, MPV 9.9 Current Medications Acetaminophen (Tylenol) 650 mg PO Q6H PRN PRN PRN Reason: Pain Score 1-10/Temp > 100.7 F Aspirin (Aspirin, Baby) 81 mg PO DAILYCM [facility] Last Admin: 01/23/20 06:25 Dose: 81 mg Documented by: Atorvastatin Calcium (Lipitor) 40 mg PO QHS [facility] Last Admin: 01/22/20 21:59 Dose: 40 mg Documented by: Atropine Sulfate () 0.5 mg IV UD PRN PRN Reason: HR <50 bpm Carvedilol (Coreg) 3.125 mg PO BID [facility] Last Admin: 01/23/20 08:24 Dose: 3.125 mg Documented by: Dextrose (D50w Syringe) 0 gm IV X1 PRN; Protocol PRN Reason: Hypoglycemia Glucagon () 1 mg IM .X1 PRN PRN Reason: Hypoglycemia Sodium Chloride () 250 mls @ 15 mls/hr IV .[id number] PRN PRN Reason: Saline Flush Sodium Chloride () 250 mls @ 15 mls/hr IV .[id number] PRN PRN Reason: Additional IVPB Infusion Sodium Chloride () 1,000 mls @ 15 mls/hr IV .Q48H [facility] Last Admin: 01/23/20 08:15 Dose: 15 mls/hr Documented by: Pantoprazole Sodium 40 mg/ (Sodium Chloride) 110 mls @ 330 mls/hr IV Q12 [facility] Insulin Glargine (Lantus (Bkc)) 10 units SC DINNER [facility] Insulin Human Lispro (Humalog Kwikpen (Bkc)) 0 unit SC Q6 [facility]; Protocol Last Admin: 01/23/20 17:03 Dose: 1 u Documented by: Labetalol HCl (Trandate) 10 mg IV Q6H PRN PRN PRN Reason: SBP > 160 OR DBP > 120 Melatonin (Melatonin) 3 mg PO QHS PRN PRN PRN Reason: INSOMNIA Morphine Sulfate () 2 mg IV Q3H PRN PRN PRN Reason: Pain Score 6-10/10 Nicotine (Nicoderm Cq (Pbkc)) 21 mg TRANSDERM. DAILY [facility] Last Admin: 01/23/20 12:29 Dose: 21 mg Documented by: Nitroglycerin (Nitrostat) 0.4 mg SUBLINGUAL Q5M PRN PRN Reason: CARDIAC/CHEST PAIN Ondansetron HCl (Zofran) 4 mg IV Q8H PRN PRN PRN Reason: NAUSEA/VOMITING Sodium Chloride () 10 - 40 ml IV UD PRN PRN Reason: SALINE FLUSH Last Admin: 01/23/20 08:15 Dose: 10 ml Documented by: Sodium Chloride () 500 ml IV BOLUS PRN PRN Reason: VASO-VAGAL PROTOCOL Ticagrelor (Brilinta) 90 mg PO BID [facility] Assessment/Plan All Active Problems (Last Updated 01/23/20 @ 09:49 by Lizzy Santa) Melena (Acute) History of coronary artery stent placement (Acute 01/23/20) Atherosclerotic heart disease of [place] coronary artery without angina pectoris (Acute) NSTEMI (non-ST elevated myocardial infarction) (Acute 01/22/20) Hyperglycemia (Acute) Tobacco abuse (Acute) Prediabetes (Acute) Assessment melena Plan: At this point I think proton pump inhibitors and observation are appropriate I am also going to obtain his old operative report with regards to his gallbladder surgery which was done in [place]. At the present time I have no plans on doing any scopes on him unless he has active bleeding. And at that time it would probably be of benefit to obtain a bleeding scan on him prior to any procedures. Office Visits / Consults: [id number] IP Consult L3
[2020-01-23 17:43] LABS: Hematocrit 50.7 % (40-54)
[2020-01-23 18:11] LABS: Bedside Glucose 186 mg/dL (70-110)
[2020-01-23] MEDS: Atorvastatin Calcium 40 MG Tablet PO (21:47)
[2020-01-23] MEDS: TICAGRELOR 90 MG TABLET PO (21:47)
[2020-01-23 23:36] LABS: Bedside Glucose 134 mg/dL (70-110)
[2020-01-24 03:00] VITALS: PULSE 91
[2020-01-24 03:35] VITALS: BP 105/73; PULSE 85; RESP 16; TEMP 36.4; O2SAT 95
[2020-01-24 05:24] LABS: Hematocrit 47.4 % (40-54); Hemoglobin 16.2 g/dL (13.0-16.5); Mean Corp Hgb Conc 34.2 g/dL (32-36); Mean Corpuscular Hgb 32.1 pg (27.0-32.0); Mean Platelet Vol. 9.9 fl (6.2-12.0); Platelet Count 144 K/mm3 (150-450); RBC Distribution Width CV 12.8 % (11.6-14.6); Red Blood Count 5.04 M/mm3 (4.6-6.2); White Blood Count 9.7 K/mm3 (4.4-11.0)
[2020-01-24 05:52] LABS: ALB/GLOB Ratio 0.6 RATIO (0.9-2.4); AST(SGOT) 195 U/L (15-37); Alanine Aminotransfer ALT/SGPT 58 U/L (16-61); Albumin, Serum 2.8 g/dL (3.2-5.0); Alkaline Phosphatase 70 U/L (45-117); Anion Gap 8 (5-15); BUN 18 mg/dL (7-18); BUN/Creat Ratio 15.5 RATIO (10-20); Calcium,Total 8.8 mg/dL (8.5-10.1); Chloride 100 mmol/L (98-107); Creatinine, Serum 1.16 mg/dL (0.70-1.30); EST Glomerular Filtration Rate 69 mL/min (>60); Est Glom Filt Rate - Afr Amer 83 mL/min (>60); Estimated Creatinine Clearance 67.97 ml/min; Globulin 4.9 g/dL (2.2-4.2); Glucose 144 mg/dL (74-106); Potassium 3.7 mmol/L (3.5-5.1); Protein, Total 7.7 g/dL (6.4-8.2); Sodium Level 133 mmol/L (136-145)
[2020-01-24 06:51] LABS: Bedside Glucose 145 mg/dL (70-110)
[2020-01-24 07:35] VITALS: O2SAT 90
[2020-01-24 07:43] VITALS: PULSE 74
[2020-01-24 08:20] VITALS: BP 105/67; PULSE 82; RESP 18; TEMP 36.6; O2SAT 95
[2020-01-24] MEDS: TICAGRELOR 90 MG TABLET PO (08:23)
[2020-01-24] MEDS: Carvedilol 3.125 MG TABLET PO (08:23)
[2020-01-24] MEDS: Aspirin 81 MG TAB.CHEW PO (08:23)
--- NOTE | 2020-01-24 10:00 | EKG12_ITS ---
Test Reason : CP ADMISSION Blood Pressure : / mmHG Vent. Rate : 077 BPM Atrial Rate : 077 BPM P-R Int : 122 ms QRS Dur : 110 ms QT Int : 374 ms P-R-T Axes : -19 225 092 degrees QTc Int : 423 ms Normal sinus rhythm Normal ECG When compared with ECG of 22-JAN-2020 16:33, MANUAL COMPARISON REQUIRED, DATA IS UNCONFIRMED Confirmed by MEENU JACKMAN, KALLI ([id number]), assistant editor FRANTZ SMALLS ([id number]) on 01/27/2020 1:07:48 PM Referred By: Prasad Sadler Confirmed By:KALLI CORRIGAN MD
--- NOTE | 2020-01-24 11:14 | DCINST_ITS ---
- Discharge Diagnoses Current Active Problems: Current Active and Chronic Problems (Last Reviewed 01/23/20 @ 17:[address] Juancho Meade MD) Melena (Acute) History of coronary artery stent placement (Acute 01/23/20) Atherosclerotic heart disease of [place] coronary artery without angina pectoris (Acute) NSTEMI (non-ST elevated myocardial infarction) (Acute 01/22/20) Hyperglycemia (Acute) Tobacco abuse (Acute) Prediabetes (Acute) You will use the following diet at home:: Cardiac Your food should be the consistency of: Regular Your liquids should be the consistency of: Regular/Thin Discharge Activity: Return to Normal Activity Allergies/Adverse Reactions: Allergies No Known Allergies Allergy (Verified 01/22/20 15:36) Medications to take at Discharge Aspirin [Aspirin, Baby] 81 mg PO DAILYCM #30 tab.chew 01/24/20 Atorvastatin Calcium [Lipitor] 40 mg PO QHS #30 tab 01/24/20 Carvedilol [Coreg (Beta Branden)] 3.125 mg PO BID #60 tab 01/24/20 Pantoprazole Sodium [Protonix] 40 mg PO DAILY #30 tab 01/24/20 Ticagrelor [Brilinta] 90 mg PO BID #60 tab 01/24/20 The following prescriptions were given: Aspirin [Aspirin, Baby] 81 mg PO DAILYCM #30 tab.chew Transmission Status: Pending to [facility] Ticagrelor [Brilinta] 90 mg PO BID #60 tab Transmission Status: Pending to [facility] Carvedilol [Coreg (Beta Branden)] 3.125 mg PO BID #60 tab Transmission Status: Pending to [facility] Atorvastatin Calcium [Lipitor] 40 mg PO QHS #30 tab Transmission Status: Pending to [facility] Primary Care Physician: Care Physician,No Primary [Primary Care Provider] - Please follow up with your Primary Care Physician in: 1-2 weeks Test Results: Test results from this visit will be discussed in further detail at your follow- up appointment, if applicable. Please Follow Up With: Nathan Allan NP-C When: 2-3 weeks Please Follow Up With: Juancho Meade MD When: 2 weeks Please Follow Up With: Opthalmology When: 2 weeks
--- NOTE | 2020-01-24 11:15 | CASEMGMT ---
SW spoke with patient as he does not have insurance and he will have several discharge medications. He was given information on [facility], [facility], and [email or web address]. These will not help immediately so SW will utilize [facility] prescription assistance program. Form completed and sent to [facility]. Genny RAMOS
[2020-01-24] MEDS: Insulin Lispro 100 UNIT/ML INSULN.PEN SC (11:17)
--- NOTE | 2020-01-24 11:20 | PCA ---
List of area PCPs given to patient with discharge paperwork.
[2020-01-24 11:38] VITALS: BP 101/52; PULSE 87; RESP 18; TEMP 36.5; O2SAT 94
[2020-01-24 11:41] LABS: Bedside Glucose 205 mg/dL (70-110)
--- NOTE | 2020-01-24 11:53 | PCM.DC.SUM ---
<Eliseo Lawson - Last Filed: 01/24/20 11:53> Discharge Date and Diagnosis Date of Admission: 01/22/20 Date of Discharge: 01/24/20 - Primary Discharge Diagnosis Acute Problems: Active Problems (Last Reviewed 01/23/20 @ 17:[address] Juancho Meade MD) NSTEMI s/p newly placed stent to LAD Ischemic CM DMt2 Melana Nicotine abuse Hospital Course and Treatment Imaging Results: CT/Brain/Head without Contrast IMPRESSION: Normal unenhanced CT scan of the brain. RAD/Chest 1 View (Portable) IMPRESSION: Nonacute portable x-ray examination of the chest. Left heart cath: CONCLUSIONS Coronary artery disease involving a recently occluded second obtuse marginal vessel and high-grade stenosis noted in the proximal right posterolateral vessel. Diffuse disease noted in the LAD.. RECOMMENDATIONS Referred for immediate PCI CORONARY ANGIOGRAPHY DOMINANCE: Right Dominant LEFT HEART ASSESSMENT Left Ventricular Ejection Fraction: by LV Gram 45 % Global Hypokinesis - Mild Depressed Left Ventricular systolic function LEFT MAIN: Angiographically normal LEFT ANTERIOR DESCENDING ARTERY: Diffusely diseased in multiple areas with the proximal being no more than 50% in the distalmost 70% stenosis CIRCUMFLEX ARTERY: Mild luminal irregularities less than 30% OM 2: Proximal - is occluded RAMUS: Mild luminal irregularities less than 30% RIGHT CORONARY ARTERY: PROX RCA: Mild luminal irregularities less than 30% MID RCA: Mild luminal irregularities less than 30% RT PLV: 80 % Stenosis Consults: Chandra - cardiology Deshaun - gen surgery Operations: None Procedures: Cardiac catheterization Summary of Care Provided: Hospital Course: The patient is a 59 year old M with pmhx diabetes, tobacco abuse who presented to the ER with chest pain, diaphoresis, chills, SOB, tingling in the right hand. He had no stemi on EKG however had Trop of 14. He was admitted for NSTEMI. 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 He tolerated the procedure well with minimal complications. He was placed on aspirin, brilinta, coreg, lipitor. A1C was 8.8 and lantus was started on metformin. He reported black stools, so general surgery was consulted and he was placed on IV protonix. He had no anemia. General surgery did not recommend intervention at this time. He was prescribed oral protonix. He was discharged in stable condition and will need F/u with PCP in 1-2 weeks, cardiology in 2-3 weeks, gen surgery in 2 weeks, and also with ophthalmology in 2 weeks (unspecified left eyelid lesion). This patient was seen by Eliseo Lawson PA-C under the supervision of Dr. Rajput [] - Physical Exam Vitals/I&O's: Vital Signs Temp Pulse Resp BP Pulse Ox 97.7 F L 87 18 101/52 L 94 01/24/20 11:38 01/24/20 11:38 01/24/20 11:38 01/24/20 11:38 01/24/20 11:38 Oxygen Flow Rate (L/min) 2 Oxygen Delivery Method Room Air Weight: 236 lb 5.369 oz Body Mass Index (BMI) 35.9 Intake and Output for Last 24 Hours 01/22/20 01/23/20 01/24/20 23:59 23:59 23:59 Intake Total 240 / 240 1221.25 / 1221.25 350 / 350 Output Total 450 / 450 Balance 240 / 240 771.25 / 771.25 350 / 350 General: Alert, Oriented x3, Cooperative HEENT: Atraumatic, PERRLA, EOMI, Normocephalic Neck: Supple, No JVD, Negative Carotid Bruits Lungs: Clear to auscultation, Normal air movement Cardiovascular: Regular rate, No murmurs Abdomen: Bowel Sounds Present, Soft, Non Tender Extremities: No edema, Capillary Refill Less than 3 Seconds Skin: No rashes, No breakdown Musculoskeletal: No Tenderness to Palpation of Joints or Extremities Neurological: Cranial nerves II-XII grossly intact Psych/Mental Status: Normal Affect, Appropriate, Alert and oriented to time, place, person, mood and affect Laboratory Results 01/23/20 11:48: POC Glucose 218 H 01/23/20 13:00: WBC 8.2, RBC 5.14, Hgb 16.5, Hct 48.6, MCV 94.6 H, MCH 32.1 H, MCHC 34.0, RDW Std Deviation 44.8 H, RDW Coeff of Benitez 12.8, Plt Count 127 L, MPV 9.9 01/23/20 17:02: POC Glucose 186 H 01/23/20 17:08: Hgb 17.0 H, Hct 50.7 01/23/20 17:20: COVID-19 (NOLBERTO) Not Detected 01/23/20 23:20: POC Glucose 134 H 01/24/20 05:06: WBC 9.7, RBC 5.04, Hgb 16.2, Hct 47.4, MCV 94.0, MCH 32.1 H, MCHC 34.2, RDW Std Deviation 44.0 H, RDW Coeff of Benitez 12.8, Plt Count 144 L, MPV 9.9 01/24/20 05:06: Sodium 133 L, Potassium 3.7, Chloride 100, Carbon Dioxide 25.0, Anion Gap 8, BUN 18, Creatinine 1.16, Estim Creat Clear Calc 67.97, Est GFR (MDRD) Af Amer 83, Est GFR (MDRD) Non-Af 69, BUN/Creatinine Ratio 15.5, Glucose 144 H, Calcium 8.8, Total Bilirubin 1.30 H, AST 195 H, ALT 58, Alkaline Phosphatase 70, Total Protein 7.7, Albumin 2.8 L, Globulin 4.9 H, Albumin/Globulin Ratio 0.6 L 01/24/20 06:30: POC Glucose 145 H 01/24/20 11:16: POC Glucose 205 H Current Medications Acetaminophen (Tylenol) 650 mg PO Q6H PRN PRN PRN Reason: Pain Score 1-10/Temp > 100.7 F Aspirin (Aspirin, Baby) 81 mg PO DAILYCM [facility] Last Admin: 01/24/20 08:23 Dose: 81 mg Documented by: Atorvastatin Calcium (Lipitor) 40 mg PO QHS [facility] Last Admin: 01/23/20 21:47 Dose: 40 mg Documented by: Atropine Sulfate () 0.5 mg IV UD PRN PRN Reason: HR <50 bpm Carvedilol (Coreg) 3.125 mg PO BID [facility] Last Admin: 01/24/20 08:23 Dose: 3.125 mg Documented by: Dextrose (D50w Syringe) 0 gm IV X1 PRN; Protocol PRN Reason: Hypoglycemia Glucagon () 1 mg IM .X1 PRN PRN Reason: Hypoglycemia Sodium Chloride () 250 mls @ 15 mls/hr IV .[id number] PRN PRN Reason: Saline Flush Sodium Chloride () 250 mls @ 15 mls/hr IV .[id number] PRN PRN Reason: Additional IVPB Infusion Sodium Chloride () 1,000 mls @ 15 mls/hr IV .Q48H [facility] Last Infusion: 01/23/20 19:00 Dose: 0 mls/hr Documented by: Pantoprazole Sodium 40 mg/ (Sodium Chloride) 110 mls @ 330 mls/hr IV Q12 [facility] Last Infusion: 01/24/20 09:00 Dose: Infused Documented by: Insulin Glargine (Lantus ([facility])) 10 units SC DINNER [facility] Last Admin: 01/23/20 17:45 Dose: 10 u Documented by: Insulin Human Lispro (Humalog Kwikpen ([facility])) 0 unit SC ACHS [facility]; Protocol Last Admin: 01/24/20 11:17 Dose: 1 u Documented by: Labetalol HCl (Trandate) 10 mg IV Q6H PRN PRN PRN Reason: SBP > 160 OR DBP > 120 Melatonin (Melatonin) 3 mg PO QHS PRN PRN PRN Reason: INSOMNIA Morphine Sulfate () 2 mg IV Q3H PRN PRN PRN Reason: Pain Score 6-10/10 Nicotine (Nicoderm Cq (Pbkc)) 21 mg TRANSDERM. DAILY [facility] Last Admin: 01/24/20 08:22 Dose: 21 mg Documented by: Nitroglycerin (Nitrostat) 0.4 mg SUBLINGUAL Q5M PRN PRN Reason: CARDIAC/CHEST PAIN Ondansetron HCl (Zofran) 4 mg IV Q8H PRN PRN PRN Reason: NAUSEA/VOMITING Sodium Chloride () 10 - 40 ml IV UD PRN PRN Reason: SALINE FLUSH Last Admin: 01/23/20 21:38 Dose: 10 ml Documented by: Sodium Chloride () 500 ml IV BOLUS PRN PRN Reason: VASO-VAGAL PROTOCOL Ticagrelor (Brilinta) 90 mg PO BID [facility] Last Admin: 01/24/20 08:23 Dose: 90 mg Documented by: Discharge Diet: Low fat/ Low Cholesterol, 2000 mg Sodium Diet Discharge Activity: Return to Normal Activity Home Medications: Medications to take at Discharge Aspirin [Aspirin, Baby] 81 mg PO DAILYCM #30 tab.chew 01/24/20 Atorvastatin Calcium [Lipitor] 40 mg PO QHS #30 tab 01/24/20 Carvedilol [Coreg (Beta Branden)] 3.125 mg PO BID #60 tab 01/24/20 Metformin HCl 500 mg PO BID #60 tab 01/24/20 Pantoprazole Sodium [Protonix] 40 mg PO DAILY #30 tab 01/24/20 Ticagrelor [Brilinta] 90 mg PO BID #60 tab 01/24/20 Following Prescriptions Were Given to Patient: Aspirin [Aspirin, Baby] 81 mg PO DAILYCM #30 tab.chew Transmission Status: Received by [facility] Ticagrelor [Brilinta] 90 mg PO BID #60 tab Transmission Status: Received by [facility] Carvedilol [Coreg (Beta Branden)] 3.125 mg PO BID #60 tab Transmission Status: Received by [facility] Atorvastatin Calcium [Lipitor] 40 mg PO QHS #30 tab Transmission Status: Received by [facility] Metformin HCl 500 mg PO BID #60 tab Transmission Status: Received by [id number] Pantoprazole Sodium [Protonix] 40 mg PO DAILY #30 tab Transmission Status: Received by [facility] Other Amb Orders: Glucometer Location: None Selected Primary Care Physician: Care Physician,No Primary [Primary Care Provider] - Please follow up with your Primary Care Physician in: 1-2 weeks Please Follow Up With: Nathan Allan NP-C When: 2-3 weeks Please Follow Up With: Juancho Meade MD When: 2 weeks Please Follow Up With: Opthalmology When: 2 weeks Disposition: Home Minutes spent on discharge:: 35 Patient Condition:: Stable Medical Necessity - Tobacco Use Smoking Status: Current every day smoker Tobacco Use: Cigarettes Meaningful Use Info Meaningful Use Diagnoses (Choose all that apply): None applicable <Rufino Rajput - Last Filed: 01/24/20 13:10> Hospital Course and Treatment Summary of Care Provided: This patient was seen in conjunction with Eliseo Lawson PA-C . I have independently interviewed and examined the patient and reviewed pertinent historical, laboratory, and other data. Please refer to Eliseo Lawson PA-C note for details of this patient's presentation, findings, and recommendations. I have reviewed Eliseo Lawson PA-C note and concur with documented findings. In brief, patient is a 59-year-old gentleman admitted with chest pain. Diagnosis of acute non-ST segment elevation MO was made with consultation placed to cardiology. Patient underwent left heart catheterization with PCI with CANDELARIA to an LAD lesion. Patient was discharged home for 2 days of hospitalization on recommended medications Hospital course; as documented above - Physical Exam Vitals/I&O's: Vital Signs Temp Pulse Resp BP Pulse Ox 97.7 F L 87 18 101/52 L 94 01/24/20 11:38 01/24/20 11:38 01/24/20 11:38 01/24/20 11:38 01/24/20 11:38 Oxygen Flow Rate (L/min) 2 Oxygen Delivery Method Room Air Weight: 107.2 kg Body Mass Index (BMI) 35.9 Intake and Output for Last 24 Hours 01/22/20 01/23/20 01/24/20 23:59 23:59 23:59 Intake Total 240 / 240 1221.25 / 1221.25 350 / 350 Output Total 450 / 450 Balance 240 / 240 771.25 / 771.25 350 / 350 Laboratory Results 01/23/20 13:00: WBC 8.2, RBC 5.14, Hgb 16.5, Hct 48.6, MCV 94.6 H, MCH 32.1 H, MCHC 34.0, RDW Std Deviation 44.8 H, RDW Coeff of Benitez 12.8, Plt Count 127 L, MPV 9.9 01/23/20 17:02: POC Glucose 186 H 01/23/20 17:08: Hgb 17.0 H, Hct 50.7 01/23/20 17:20: COVID-19 (NOLBERTO) Not Detected 01/23/20 23:20: POC Glucose 134 H 01/24/20 05:06: WBC 9.7, RBC 5.04, Hgb 16.2, Hct 47.4, MCV 94.0, MCH 32.1 H, MCHC 34.2, RDW Std Deviation 44.0 H, RDW Coeff of Benitez 12.8, Plt Count 144 L, MPV 9.9 01/24/20 05:06: Sodium 133 L, Potassium 3.7, Chloride 100, Carbon Dioxide 25.0, Anion Gap 8, BUN 18, Creatinine 1.16, Estim Creat Clear Calc 67.97, Est GFR (MDRD) Af Amer 83, Est GFR (MDRD) Non-Af 69, BUN/Creatinine Ratio 15.5, Glucose 144 H, Calcium 8.8, Total Bilirubin 1.30 H, AST 195 H, ALT 58, Alkaline Phosphatase 70, Total Protein 7.7, Albumin 2.8 L, Globulin 4.9 H, Albumin/Globulin Ratio 0.6 L 01/24/20 06:30: POC Glucose 145 H 01/24/20 11:16: POC Glucose 205 H Inpatient E&M: [id number] Disch Hosp
--- NOTE | 2020-01-24 12:35 | PHA.DC.MR ---
Pharmacy Service has performed discharge medication reconciliation for this patient. The patient's discharge medication list was reviewed for discrepancies and discrepancies were resolved. Home Medications Aspirin [Aspirin, Baby] 81 mg PO DAILYCM #30 tab.chew 01/24/20 Atorvastatin Calcium [Lipitor] 40 mg PO QHS #30 tab 01/24/20 Carvedilol [Coreg (Beta Branden)] 3.125 mg PO BID #60 tab 01/24/20 Metformin HCl 500 mg PO BID #60 tab 01/24/20 Pantoprazole Sodium [Protonix] 40 mg PO DAILY #30 tab 01/24/20 Ticagrelor [Brilinta] 90 mg PO BID #60 tab 01/24/20
--- NOTE | 2020-01-24 14:51 | NURSING ---
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 Also that a prescription for a glucometer is being mailed to him. Message left with significant other who voiced understanding.
--- NOTE | 2020-01-27 13:46 | CL.I_ITS ---
Patient Name: LOKI ENCARNACION Study Date: 01/23/2020 Performing: Radha Hubbard MD Ht: 68 inches 173 cm : 1960 Wt: 236.2 lbs 107 kg Age: 59 Gender: male BSA: 2.2 PROCEDURE(S) PERFORMED [id number] W OR WO PTCA, SINGLE CORONARY ARTERY CLINICAL PROFILE AND CO-MORBIDITIES Indications: ACS <= 24 hrs Heart Failure: None Stress/Imaging Stress/Image Study Performed: No CONCLUSIONS Successful PTCA/CANDELARIA to OM2 RECOMMENDATIONS DESCRIPTION OF PROCEDURE The patient arrived to the procedure lab. The risks and benefits of the procedure as well as a full d escription of our services here and current unavailability of surgical backup were fully explained to the patient and/or their significant other prior to the catheterization. The Timeout was completed, verifying the correct patient and procedure. The patient's procedural site was prepped and draped in the usual fashion. Local anesthetic was given subcutaneously to right radial region with Lidocaine 2% Using a modified Seldinger technique,arterial access was obtained via the right radial artery, a 6Fr sheath was inserted. Left Coronary Artery selective angiography was performed in multiple views usin g a 5 Fr. 4.0 [place] catheter. Right Coronary Artery selective angiography was then performed in multi ple views using a 5 Fr. JR 5 catheter. Left Ventriculography was performed in CHAVARRIA projection using a 5 Fr. Pigtail catheter. LV to AO pullback pressures were then recorded.The images were reviewed and options discussed. A decision was then made to proceed with an Intervention, IVUS or oth er adjunct procedure. XB 3.0 Guide catheter was inserted and engaged into the LCA. WHISPER Guide wire was advanced to t he 2nd OM. BMW Guide wire was advanced to the 2nd OM. Priority One inserted Pass # 1 Priority One Rem suzan 2.0 X 15 EMERGE Balloon catheter was advanced across lesion in the second obtuse marginal, proxi mal Angiogram performed post balloon dilatation. PTCA balloon inflated at 6 atms for 8 secs. PTCA bal loon inflated at 10 atms for 10 secs. PTCA balloon inflated at 10 atms for 10 secs. Angiogram perform ed post balloon dilatation. 2.5 X 28 SYNERGY Drug Eluting stent was advanced across the lesion in the second obtuse marginal, proximal Drug Eluting stent was removed intact, failed to cross lesion BMW G uide wire was inserted as a piero wire 2.5 X 28 SYNERGY Drug Eluting stent was inserted. Drug Eluting stent was removed intact, failed to cross lesion 2.5 X 28 SYNERGY Drug Eluting stent was inserted. P TCA balloon inflated at 6 atms for 12 secs. PTCA balloon inflated at 6 atms for 8 secs. PTCA balloon inflated at 6 atms for 9 secs. Drug Eluting stent was inserted. Drug Eluting stent was r emoved intact, failed to cross lesion 2.5 X 15 EMERGE Balloon catheter was advanced across lesion in the second obtuse marginal, proximal PTCA balloon inflated at 8 atms for 7 secs. PTCA balloon inflate d at 8 atms for 8 secs. PTCA balloon inflated at 8 atms for 8 secs. PTCA balloon inflated at 8 atms f or 9 secs. Angiogram performed post balloon dilatation. 2.5 X 28 SYNERGY Drug Eluting stent was inser jerrica. Drug Eluting stent was removed intact, failed to cross lesion 2.5 x 8 SYNERGY Drug Eluting stent was inserted over Whisper wire. Drug Eluting stent was removed intact, failed to cross lesion 2.5 x 20 EMERGE Balloon catheter was inserted. Balloon catheter was advanced across lesion in the second ob tuse marginal, proximal PTCA balloon inflated at 12 atms for 8 secs. PTCA balloon inflated at 12 atms for 7 secs. PTCA balloon inflated at 12 atms for 8 secs. PTCA balloon inflated at 20 atms for 24 secs. Angiogram performed post balloon dilatation. 2.5 x 10 Angiosculpt Cutting balloon cathet er was advanced to the lesion in the second obtuse marginal, proximal 2.5 x 10 Angiosculpt Cutting ba lloon catheter was advanced to the lesion in the second obtuse marginal, proximal Angiogram performed post balloon dilatation. 2.5 x 28 Synergy Drug Eluting stent was inserted. Drug Eluting stent was ad vanced across the lesion in the second obtuse marginal, proximal Angiogram performed post stent deplo yment. The arterial sheath was pulled and a TR Band was applied for hemostasis 13cc air INTERVENTION INFORMATION LESION SITE: 2nd OM (Proximal) Lesion Complexity: High/C, chronic total occlusion: No, lesion at bifurcation: Yes, thrombus present: Yes, lesion length: 26 mm, culprit lesion: Yes, Previously treated lesion: No Pre Stenosis: 100 % Pre intervention LELAND flow: 0 PROCEDURE: Thrombectomy, Drug Eluting Stent with pre dilatation., Cutting Balloon Angioplasty We had to predilate the proximal LCx to enable stent delivery. So we deployed the stent to cover this area as well. Post Stenosis: 0 % Post intervention LELAND flow: 3 Lesion Devices: Cardinal 6 Fr XB3.0 100cm Guide Catheter Shaw .014 HT Whisper MS Straight 190cm Terumo Priority One Aspiration Catheter Damien Sci EMERGE MR 2.00x15 BALLOON Damien Sci Synergy MR CANDELARIA 2.50x28 Damien Sci NC EMERGE MR 2.50x20 BALLOON Spectranetics Angiosculpt 2.5x10 Scoring Balloon Damien Sci EMERGE MR 2.50x15 BALLOON COMPLICATIONS No Complications PROCEDURE MEDICATIONS Versed 1 mg IV Fentanyl 50 mcg IV Versed 1 mg IV Oxygen: 2 L/min via nasal cannula Brilinta 180 mg PO @ 01/23/2020 10:55:51 Heparin diluted in 23cc Heparinized saline. Patient given 10cc IA of this solution. 01/23/2020 08:58: 39 Heparin 6000 unit(s) IV 01/23/2020 09:23:18 Nitro 200 mcg IC 01/23/2020 09:45:08 Verapamil 2.5mg, Ntg 100mcgs, 2000 units of Heparin diluted in 23cc Heparinized saline. Patient give n 10cc IA of this solution. 01/23/2020 08:58:39 SUMMARY OF HEMODYNAMIC DATA Time AIR REST ECG 08:42:04 AO 144/107 (124) SA 09:02:12 LV 136/21, 27 09:15:04 LV 139/22, 28 09:15:10 LV 142/26, 29 09:16:13 LVp 145/28, 38 09:16:17 AOp 146/97 (118) 09:16:22 Signed By Radha Hubbard MD On 01/27/2020 1:45:47 PM Radha Hubbard MD
== END 2020-01-24 11:57 | disposition home or self-care (01) | DRG 247 ==
LOC: ED 16:06 → PCU 19:38
PROVIDERS: Specialist; Surgery; Admitting Provider Hospitalist; Emergency Provider Emergency Medicine; Referring Provider Hospitalist; Visit Provider Internal Medicine
DX: I21.4 Non-ST elevation (NSTEMI) myocardial infarction (principal); K92.1 Melena; I25.5 Ischemic cardiomyopathy; E11.65 Type 2 diabetes mellitus with hyperglycemia; Z95.5 Presence of coronary angioplasty implant and graft; F17.210 Nicotine dependence, cigarettes, uncomplicated; Z91.19 Patient's noncompliance with other medical treatment and regimen; E78.5 Hyperlipidemia, unspecified; I10 Essential (primary) hypertension; I25.10 Atherosclerotic heart disease of native coronary artery without angina pectoris
CPT/HCPCS: 36415; 70450; 71045; 80048; 80053; 80061; 82962; 83036; 84484; 85014; 85018; 85025; 85027; 85347; 85610; 87635; 92928; 93005; 93458; 97802; 99152; 99153; 99285; 99406; C1757; C9803; J7030; J7040; Q9967; A4216; C1725; C1769; C1874; C1887; C1894; C9600; J1327; U0003

== ENCOUNTER 2020-03-30 02:04 | Observation (INO) | payer OTHER, SELFPAY ==
[2020-02-17 10:54] VITALS: BMI 34.9
[2020-03-30] VITALS (9 sets, daily range): BP systolic 142–187; BP diastolic 82–120; PULSE 71–89; RESP 16–24; TEMP 36.4–36.7; O2SAT 93–100; BMI 36.8; BMI 34.3; BMI 34.0
--- NOTE | 2020-03-30 02:12 | RAD_ITS ---
STUDY: X-RAY CHEST REASON FOR EXAM: Male, 59 years old. LT SIDED CP -- HAD A STENT PLACED IN JAN 2020 TECHNIQUE: Single AP portable view of the chest. COMPARISON: None. FINDINGS: There is a calcified granuloma in the left lung base measures 5 mm. There is no demonstrated pleural abnormality. Normal size heart. Normal mediastinum and domenic. Normal visualized pulmonary arteries. Normal visualized aortic arch and descending thoracic aorta. Normal visualized thoracic spine. Normal visualized ribs, clavicles, and shoulders. There is no demonstrated abnormality of the visualized soft tissue structures of the upper abdomen. RAD/Chest 1 View (Portable) IMPRESSION: No demonstrated acute cardiopulmonary process. Electronically Signed: Cass Lamas, at 2:32 EST Tel , Service support ,
--- NOTE | 2020-03-30 02:12 | EKG12_ITS ---
Test Reason : CP Blood Pressure : / mmHG Vent. Rate : 081 BPM Atrial Rate : 081 BPM P-R Int : 156 ms QRS Dur : 098 ms QT Int : 380 ms P-R-T Axes : 052 235 083 degrees QTc Int : 441 ms Normal sinus rhythm Right superior axis deviation Pulmonary disease pattern Nonspecific ST abnormality Abnormal ECG Confirmed by MEENU JACKMAN, KALLI ([id number]), dictionary editor FRANTZ SMALLS ([id number]) on 04/03/2020 9:04:07 AM Referred By: Confirmed By:KALLI CORRIGAN MD
[2020-03-30] MEDS: Aspirin 81 MG TAB.CHEW 324 MG PO (02:15)
[2020-03-30 02:25] LABS: Absolute Lymphocyte Count 2.24 X10^3/uL (0.83-4.51); Absolute Neutrophil Count 2.7 X10^3/uL (2.0-7.7); Basophil# 0.05 X10^3/uL; Basophil% 0.9 % (0-1); Eosinophil# 0.16 X10^3/uL; Eosinophils% 2.8 % (0-5); Hematocrit 49.7 % (40-54); Hemoglobin 16.5 g/dL (13.0-16.5); Lymphocyte # 2.24 X10^3/ul (4.0); Lymphocyte % 38.8 % (19-41); Mean Corp Hgb Conc 33.2 g/dL (32-36); Mean Corpuscular Hgb 32.2 pg (27.0-32.0); Mean Corpuscular Volume 97.1 fL (80-94); Mean Platelet Vol. 9.6 fl (6.2-12.0); Monocyte# 0.63 X10^3/uL; Monocyte% 10.9 % (0-10); NRBC Flagged by Analyzer 0 % (0-5); Neutrophil # 2.68 X10^3/uL (2.7-7.7); Neutrophil % 46.4 % (47-70); Platelet Count 108 K/mm3 (150-450); RBC Distribution Width CV 12.6 % (11.6-14.6); RBC Distribution Width SD 45.1 fl (35.1-43.9); Red Blood Count 5.12 M/mm3 (4.6-6.2); White Blood Count 5.8 K/mm3 (4.4-11.0)
[2020-03-30] MEDS: Morphine 4 MG/ML Syringe IV (02:31)
[2020-03-30] MEDS: Ondansetron 4 MG/2 ML Vial IV (02:31)
[2020-03-30 02:41] LABS: Anion Gap 5 (5-15); BUN 16 mg/dL (7-18); BUN/Creat Ratio 12.7 RATIO (10-20); Calcium,Total 9.1 mg/dL (8.5-10.1); Chloride 105 mmol/L (98-107); Creatinine, Serum 1.26 mg/dL (0.70-1.30); EST Glomerular Filtration Rate 63 mL/min (>60); Est Glom Filt Rate - Afr Amer 76 mL/min (>60); Estimated Creatinine Clearance 58.37 ml/min; Glucose 93 mg/dL (74-106); Potassium 4.3 mmol/L (3.5-5.1); Sodium Level 138 mmol/L (136-145)
--- NOTE | 2020-03-30 02:52 | HP.PCM_ITS ---
Problem List (1) Chest pain Status: Acute (2) History of coronary artery stent placement Status: Chronic Comment: PCI-CANDELARIA-OM w/ 2.5 x 28 mm Synergy Stent 01/23/2020 (3) Atherosclerotic heart disease of [place] coronary artery without angina pectoris Status: Chronic (4) Tobacco abuse Status: Chronic (5) Prediabetes Status: Chronic History of Present Illness Date of Admission: 03/30/20 Chief Complaint: chest pain The patient is a 59 year old M with a significant history of hypertension; diabetes mellitus; hyperlipidemia; CAD status post stent in OM 2 who presents with emergency department with left-sided chest pain that started about 1/2 hours prior to presentation. Patient was lying in bed and trying to sleep and his chest pain started. His chest pain is episodic. It radiates to his left fingers where he has numbness and tingling. He describes chest pain as throbbing. There is no aggravating or ameliorating factors to the chest pain. He denies any nausea or diaphoresis. He reports shortness of breath. Past Medical History Past Medical History (Chronic Problems): Chronic Problems (Last Reviewed 03/30/20 @ 06:[address] Prasad Sadler MD) History of coronary artery stent placement (Chronic 01/23/20) PCI-CANDELARIA-OM w/ 2.5 x 28 mm Synergy Stent 01/23/2020 Atherosclerotic heart disease of [place] coronary artery without angina pectoris (Chronic) Tobacco abuse (Chronic) Prediabetes (Chronic) Medical History: Medical History (Last Reviewed 03/30/20 @ 06:[address] Prasad Sadler MD) Atherosclerotic heart disease of [place] coronary artery without angina pectoris (Chronic) I25.10 NSTEMI (non-ST elevated myocardial infarction) (Inactive) Onset Date: 01/22/20 I21.4 Hyperglycemia (Inactive) R73.9 Tobacco abuse (Chronic) Z72.0 Prediabetes (Chronic) R73.03 Borderline diabetes R73.03 Hyperlipidemia E78.5 Hypertension I10 Allergies No Known Allergies Allergy (Verified 03/30/20 02:09) Home Medications: Ambulatory Orders Medication Instructions Recorded Aspirin [Aspirin, Baby] 81 mg PO DAILYCM #30 tab.chew 01/24/20 Ticagrelor [Brilinta] 90 mg PO BID #60 tab 01/24/20 atorvastatin 40 mg tablet 40 mg PO QHS #30 tab 02/17/20 carvedilol 3.125 mg tablet 3.125 mg PO BID #60 tab 02/17/20 clopidogrel 75 mg tablet 75 mg PO DAILY #34 tab 02/17/20 metformin 500 mg tablet 500 mg PO BID #60 tab 02/17/20 pantoprazole 40 mg tablet,delayed 40 mg PO DAILY #30 tab 02/17/20 release Surgical History: Surgical History (Last Reviewed 03/30/20 @ 06:[address] Prasad Sadler MD) History of coronary artery stent placement (Chronic) Onset Date: 01/23/20 Z95.5 PCI-CANDELARIA-OM w/ 2.5 x 28 mm Synergy Stent 01/23/2020 Surgical History: - - Gallbladder surgery; bilateral eye surgery; right arm surgery; tympanoplasty; surgery on scrotum; and Left knee surgery Smoking Status: Current every day smoker - *Family History Maternal History Items: Heart Disease - His mother had a heart attack at about age 55. At about age 60 his mother had CABG. Paternal History Items: Diabetes, Hypertension, - - Hyperlipidemia Review of Systems Constitutional: Denies: Chills, Fever, Weight Change HEENT: Denies: Head Aches, Sinus Congestion, Sinus Drainage Cardiovascular: Reports: Chest Pain. Denies: Palpitations Respiratory: Reports: Shortness of breath upon exertion. Denies: Cough, Shortness of breath at rest, Sputum production Gastrointestinal: Denies: Abdominal Pain, Nausea, Vomiting Genitourinary: Denies: Dysuria Musculoskeletal: Denies: Joint Pain, Joint Tenderness Skin: Denies: Rash, Wounds Neurological: Denies: Numbness, Tingling, Focal weakness Psychiatric: Denies: Anxiety, Depression, Homicidal Ideations, Suicidal Id eations Hematologic/ Lymphatic: Denies: Easy Bruising, Easy Bleeding VTE Information - Inpt Only VTE Present on Admission: No VTE Mechan Device Prophylaxis: SCD's VTE Pharm Prophylaxis ordered?: No Patient Problems: Active and Suspected Problems (Last Reviewed 03/30/20 @ 06:[address] Prasad Sadler MD) Chest pain (Acute) - Physical Exam Vitals/I&O's: Vital Signs Temp Pulse Resp BP Pulse Ox 98.1 F 74 16 167/82 H 100 03/30/20 02:22 03/30/20 02:22 03/30/20 02:22 03/30/20 02:22 03/30/20 02:22 Oxygen Delivery Method Room Air Weight: 103.6 kg Body Mass Index (BMI) 36.8 General: Alert, Oriented x3, Cooperative HEENT: Atraumatic, PERRLA, EOMI, Normocephalic Neck: Supple, Trachea Midline Lungs: Clear to auscultation, Normal air movement Cardiovascular: Regular rate, Normal S1, Normal S2, No murmurs Abdomen: Bowel Sounds Present, Soft, Non Tender Extremities: No edema, Capillary Refill Less than 3 Seconds Skin: No rashes, No breakdown Musculoskeletal: No Tenderness to Palpation of Joints or Extremities Neurological: Cranial nerves II-XII grossly intact Psych/Mental Status: Normal Affect, Appropriate Laboratory Results 03/30/20 02:15: WBC 5.8, RBC 5.12, Hgb 16.5, Hct 49.7, MCV 97.1 H, MCH 32.2 H, MCHC 33.2, RDW Std Deviation 45.1 H, RDW Coeff of Benitez 12.6, Plt Count 108 L, MPV 9.6, Immature Gran % (Auto) 0.200, Neut % (Auto) 46.4 L, Lymph % (Auto) 38.8, [place] % (Auto) 10.9 H, Eos % (Auto) 2.8, Baso % (Auto) 0.9, Absolute Neuts (auto) 2.7, Absolute Lymphs (auto) 2.24, Nucleated RBC % 0 03/30/20 02:15: Sodium 138, Potassium 4.3, Chloride 105, Carbon Dioxide 28.0, Anion Gap 5, BUN 16, Creatinine 1.26, Estim Creat Clear Calc 58.37, Est GFR (MDRD) Af Amer 76, Est GFR (MDRD) Non-Af 63, BUN/Creatinine Ratio 12.7, Glucose 93, Calcium 9.1, Troponin I < 0.015 Assessment/Plan All Active Problems (Last Reviewed 03/30/20 @ 06:[address] Prasad Sadler MD) Chest pain (Acute) Chest pain Place on a monitored bed at U Actual CXR image was independently visualized. No acute cardiopulmonary process was noted. Actual EKG tracing was independently visualized. EKG tracing did not show any acute T wave or ST abnormalities. Continue ASA 81 mg p.o. daily and Plavix daily ordered SL NTG 0.4 mg prn as needed for chest pain ordered Morphine as needed for pain ordered Statin: Atorvastatin 40 mg nightly continued. Serial cardiac enzymes ordered Stat EKG as needed for chest pain Carvedilol continued Discussed case with principal java developer, Dr. Zelaya who recommended nuclear stress test. Nuclear stress test ordered. Cardiology consult. Diabetes mellitus A1C on 01/22/2020 was 8.8. Patient is euglycemic. Hold Metformin. Accu-Cheks ordered. Hypertensive urgency Patient with systolic blood pressure of 187; diastolic blood pressure of 120 Carvedilol continued As needed hydralazine ordered. DVT prophylaxis ordered. SCD ordered OBSV E&M: 80070 Initial observation care L2
--- NOTE | 2020-03-30 03:24 | ED.VISSUMM ---
- ER Visit Summary Date of Service: 03/30/20 Chief Complaint: Chest pain History of Present Illness: The patient is a 59 M presenting with chest pain. Patient states this started 2 hours ago. Pain is midsternal radiates to his left arm. It is 8 out of 10. He has associated shortness of breath. He denies nausea or diaphoresis. He has had a mild cough. He tested negative for Covid in January. He had one stent placed in January. He has not had pain since that time. He is attempting to quit smoking. He has a history of diabetes, hypertension, hypercholesteremia. Physical Examination: Vitals are stable. Patient is afebrile. Alert no acute distress. HEENT exam is unremarkable. Neck is supple. Lungs are clear and equal bilaterally. Heart is regular rate and rhythm. Abdomen is soft nontender nondistended. Extremities are unremarkable. Skin is warm and dry. No focal neurologic deficit. Remainder of exam is unremarkable. Emergency Department Course and Treatment: EKG is sinus rhythm rate of 81 with no acute ischemic changes. Chest x-ray shows no acute process. CBC, chemistries unremarkable. Troponin is negative. Patient was given aspirin, morphine, Zofran on arrival. He is chest pain-free on reevaluation. Discussed with the hospitalist for observation. Disposition: Observation Impression: Chest pain This note was generated with [employer] dictation software. It may contain incorrect words, spelling, and punctuation that were not noted in review of the chart prior to signing
--- NOTE | 2020-03-30 03:57 | EKG12_ITS ---
Test Reason : CP ADMIT Blood Pressure : / mmHG Vent. Rate : 078 BPM Atrial Rate : 078 BPM P-R Int : 146 ms QRS Dur : 110 ms QT Int : 388 ms P-R-T Axes : 060 232 078 degrees QTc Int : 442 ms Normal sinus rhythm Right ventricular hypertrophy Abnormal ECG When compared with ECG of 24-JAN-2020 04:56, T wave inversion no longer evident in Lateral leads Confirmed by MEENU JACKMAN, KALLI ([id number]), associate entertainment editor FRANTZ SMALLS ([id number]) on 04/03/2020 9:34:47 AM Referred By: DR LAND Confirmed By:KALLI CORRIGAN MD
[2020-03-30] MEDS: Clopidogrel Bisulfate 75 MG Tablet PO (04:46)
[2020-03-30 07:00] LABS: Bedside Glucose 99 mg/dL (70-110)
[2020-03-30] MEDS: Pantoprazole Sodium 40 MG Tablet PO (10:51)
[2020-03-30] MEDS: Carvedilol 3.125 MG TABLET PO (10:51)
--- NOTE | 2020-03-30 10:51 | STRESSREP ---
Stress Test Report Pharmacologic myocardial perfusion stress test. 59-year-old man with a history of known coronary artery disease. Patient is status post angioplasty and stenting of the circumflex artery. Stress protocol: Resting KG demonstrates sinus rhythm with a rate of 67 bpm normal intervals are noted resting blood pressure is 152/84 mmHg. 0.4 mg of regadenoson was infused per usual protocol followed by rapid intravenous saline flush injection continuous EKG monitoring was performed. The maximum heart rate attained was 105 bpm which was 64% of max impacted heart rate the maximum workload was 1 metabolic equivalent. At rest there were no ST or T wave changes noted to suggest abnormal flow reserve at peak infusion nonspecific ST-T wave changes were noted. The final blood pressure was 146/84. Myocardial perfusion protocol. 14.6 mCi of technetium 99m sestamibi was injected at rest. 0.4 mg of regadenoson was infused per usual protocol. At peak infusion 44.9 mCi of technetium 99m sestamibi was injected stress images were obtained stress and rest images were reconstructed and compared in the short axis vertical long horizontal long axis. Gated images were also obtained Perfusion SPECT analysis: Review of the images demonstrate normal uptake of tracer noted in the septum anterior wall and lateral wall. The basal inferior wall has reduced perfusion noted on the stress images. The resting images appear to demonstrate a similar pattern. The attenuation corrected images demonstrate normal perfusion. No ischemia is noted. Gated SPECT analysis: The gated ejection fraction is 46%. Conclusion: Normal pharmacologic myocardial perfusion stress test with no overt ischemia noted. Low normal ejection fraction.
--- NOTE | 2020-03-30 11:07 | DCINST_ITS ---
- Discharge Diagnoses Current Active Problems: Current Active and Chronic Problems (Last Reviewed 03/30/20 @ 06:[address] Prasad Sadler MD) Chest pain (Acute) History of coronary artery stent placement (Chronic 01/23/20) PCI-CANDELARIA-OM w/ 2.5 x 28 mm Synergy Stent 01/23/2020 Atherosclerotic heart disease of [place] coronary artery without angina pectoris (Chronic) Tobacco abuse (Chronic) Prediabetes (Chronic) You will use the following diet at home:: Calorie/Carbohydrate Controlled (specify 1200, 1400, etc) - 1800 kieran / day, Cardiac Your food should be the consistency of: Regular Your liquids should be the consistency of: Regular/Thin Discharge Activity: Return to Normal Activity Call your doctor if you observe: Shortness of breath, Chest pain, Uncontrolled pain Allergies/Adverse Reactions: Allergies No Known Allergies Allergy (Verified 03/30/20 02:09) Medications to take at Discharge Aspirin [Aspirin, Baby] 81 mg PO DAILYCM #30 tab.chew 01/24/20 Ticagrelor [Brilinta] 90 mg PO BID #60 tab 01/24/20 atorvastatin 40 mg tablet 40 mg PO QHS #30 tab 02/17/20 carvedilol 3.125 mg tablet 3.125 mg PO BID #60 tab 02/17/20 clopidogrel 75 mg tablet 75 mg PO DAILY #34 tab 02/17/20 metformin 500 mg tablet 500 mg PO BID #60 tab 02/17/20 pantoprazole 40 mg tablet,delayed release 40 mg PO DAILY #30 tab 02/17/20 Primary Care Physician: Tk Dowell MD [Primary Care Provider] - Please follow up with your Primary Care Physician in: 1-2 weeks Test Results: Test results from this visit will be discussed in further detail at your follow- up appointment, if applicable. Proposed Discharge Date: 03/30/20
[2020-03-30 11:51] LABS: Bedside Glucose 131 mg/dL (70-110)
--- NOTE | 2020-03-30 12:19 | CON.PCM_ITS ---
Problem List (1) Chest pain Status: Acute Reason for Consult Date of Consultation: 03/30/20 Reason for Consultation: Chest pain History of Present Illness: The patient is a 59 year old M was admitted after 3 hours of left-sided chest pain. He was stretching his left arm to get something and this happened right away. It was not associated with shortness of breath or diaphoreses. EKG and enzymes were not impressive. Patient had different kind of chest pain 2 months ago. At that time he was admitted for non-STEMI. He underwent stenting of the obtuse marginal branch. Since discharge, patient has been very active. He has been a heavy smoker now cut down to half a pack a day. He is a nondrinker. He has been treated for hypertension, diabetes and hyperlipidemia with obesity. [] Past Medical History Allergies/Adverse Reactions: Allergies No Known Allergies Allergy (Verified 03/30/20 02:09) Home Medications: Ambulatory Orders Medication Instructions Recorded Aspirin [Aspirin, Baby] 81 mg PO DAILYCM #30 tab.chew 01/24/20 Ticagrelor [Brilinta] 90 mg PO BID #60 tab 01/24/20 atorvastatin 40 mg tablet 40 mg PO QHS #30 tab 02/17/20 carvedilol 3.125 mg tablet 3.125 mg PO BID #60 tab 02/17/20 clopidogrel 75 mg tablet 75 mg PO DAILY #34 tab 02/17/20 metformin 500 mg tablet 500 mg PO BID #60 tab 02/17/20 pantoprazole 40 mg tablet,delayed 40 mg PO DAILY #30 tab 02/17/20 release Past Medical History (Chronic Problems): Chronic Problems (Last Reviewed 03/30/20 @ 06:[address] Prasad Sadler MD) History of coronary artery stent placement (Chronic 01/23/20) PCI-CANDELARIA-OM w/ 2.5 x 28 mm Synergy Stent 01/23/2020 Atherosclerotic heart disease of [place] coronary artery without angina pectoris (Chronic) Tobacco abuse (Chronic) Prediabetes (Chronic) Surgical History: - - Gallbladder surgery; bilateral eye surgery; right arm surgery; tympanoplasty; surgery on scrotum; and Left knee surgery, stenting of the obtuse marginal branch 2 months ago - *Family History Maternal History Items: Heart Disease - His mother had a heart attack at about age 55. At about age 60 his mother had CABG. Paternal History Items: Diabetes, Hypertension, - - Hyperlipidemia Smoking Status: Current every day smoker Review of Systems - Review of Systems General: Denies: Fever, Night Sweats, Fatigue Cardiovascular: Reports: Chest Discomfort Respiratory: Denies: Cough, Sputum Production, Hemoptysis Gastrointestinal: Denies: Hematemesis, Hematochezia, Melena Neurological: Denies: Dizziness, Confusion Objective: Vital Signs Temp Pulse Resp BP Pulse Ox 97.7 F L 78 18 142/92 H 93 03/30/20 09:00 03/30/20 09:00 03/30/20 09:00 03/30/20 09:00 03/30/20 09:00 Oxygen Flow Rate (L/min) 2 Oxygen Delivery Method Room Air Weight: 225 lb 12.054 oz Body Mass Index (BMI) 34.3 Intake and Output for Last 24 Hours 03/28/20 03/29/20 03/30/20 23:59 23:59 23:59 Intake Total 240 / 240 Balance 240 / 240 General: Healthy Appearing, Alert, Oriented x 3, Cooperative, No Acute Distress Neck: Supple Lungs: Clear to auscultation Cardiovascular: Regular Rhythm, Normal S1, Normal S2, No Murmurs, No Rubs, No Gallops Abdomen: Bowel Sounds Present, Soft, Non Tender, No HSM, No Organomegaly Extremities: No Cyanosis, No Clubbing, No edema Neurological: No Focal Motor or Sensory Deficit Psych/Mental Status: Appropriate, Normal Affect 03/30/20 02:15: WBC 5.8, RBC 5.12, Hgb 16.5, Hct 49.7, MCV 97.1 H, MCH 32.2 H, MCHC 33.2, Plt Count 108 L, MPV 9.6, Immature Gran % (Auto) 0.200, Neut % (Auto) 46.4 L, Lymph % (Auto) 38.8, [place] % (Auto) 10.9 H, Eos % (Auto) 2.8, Baso % (Auto) 0.9, Absolute Neuts (auto) 2.7, Nucleated RBC % 0 03/30/20 02:15: Sodium 138, Potassium 4.3, Chloride 105, Carbon Dioxide 28.0, Anion Gap 5, BUN 16, Creatinine 1.26, Est GFR (MDRD) Af Amer 76, Est GFR (MDRD) Non-Af 63, BUN/Creatinine Ratio 12.7, Glucose 93, Calcium 9.1, Troponin I < 0.015 03/30/20 06:10: Troponin I 0.022 03/30/20 07:49: Troponin I < 0.015 Rhythm: EKG: ECHO: Stress Test: Cardiac Cath: PCI: CT Surgery: Holter monitor: EPS: PPM: CXR: Chest CT Scan: Assessment/Plan #1 atypical chest pain, EKG, enzymes were not impressive. Nuclear stress test was performed this morning and showed fixed inferior defect. The lateral wall perfusion is normal. The chest pain is different from the chest pain 2 months ago when he was admitted for non-STEMI. From cardiac standpoint patient can be discharged and to be follow-up with Dr. Hubbard #2 hypertension, diabetes and hyperlipidemia with obesity #3 COPD from cigarette smoking. Patient has been encouraged to quit smoking and lose weight
--- NOTE | 2020-03-30 13:11 | DS.PCM_ITS ---
<Eliseo Lawson - Last Filed: 03/30/20 13:11> Discharge Date and Diagnosis - Problem List Patient Problems: Active and Suspected Problems (Last Reviewed 03/30/20 @ 06:[address] Prasad Sadler MD) Chest pain (Acute) Date of Admission: 03/30/20 Date of Discharge: 03/30/20 - Primary Discharge Diagnosis Acute Problems: Active Problems (Last Reviewed 03/30/20 @ 06:[address] Prasad Sadler MD) Chest pain - musculoskeletal Hx CAD, prior stent - Secondary Discharge Diagnosis Chronic Problems: Chronic Problems (Last Reviewed 03/30/20 @ 06:[address] Prasad Sadler MD) History of coronary artery stent placement (Chronic 01/23/20) PCI-CANDELARIA-OM w/ 2.5 x 28 mm Synergy Stent 01/23/2020 Atherosclerotic heart disease of [place] coronary artery without angina pectoris (Chronic) Tobacco abuse (Chronic) Prediabetes (Chronic) Hospital Course and Treatment Imaging Results: 03/30/20 05:55 Nuclear Stress Test - Chemical [NM] AM (NON MEDS) Gated SPECT analysis: The gated ejection fraction is 46%. Conclusion: Normal pharmacologic myocardial perfusion stress test with no overt ischemia noted. Low normal ejection fraction. RAD/Chest 1 View (Portable) IMPRESSION: No demonstrated acute cardiopulmonary process. consult: Cardiology - Operations: None Procedures: Stress test Summary of Care Provided: Hospital Course: The patient is a 59 year old M with pmhx CAD with prior stent 01/2020 who presetned to the ER with chest pain. This was described as a sharp and aching pain in the left midsternal region that would come on when he raised his arms or stretched in a particular way. He denied chest pain or SOB with exertion and has no issue walking up stairs. He had negative EKG, negative trop, negative CXR. He was admitted to PCU for chest pain work up. He had no events on tele. He had negative troponin x3. He was taken for a stress test which was negative for inducible ischemia. Cardiology evaluated the patient and did not feel that this was cardiac CP. He will need to follow up with his PCP in 1-2 weeks. 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 The patient was discharged home in stable condition. This patient was seen by Eliseo Lawson PA-C under the supervision of Dr. Jin.[] Patient Problems: Active and Suspected Problems (Last Reviewed 03/30/20 @ 06:[address] Prasad Sadler MD) Chest pain (Acute) - Physical Exam Vitals/I&O's: Vital Signs Temp Pulse Resp BP Pulse Ox 97.7 F L 78 18 142/92 H 93 03/30/20 09:00 03/30/20 09:00 03/30/20 09:00 03/30/20 09:00 03/30/20 09:00 Oxygen Flow Rate (L/min) 2 Oxygen Delivery Method Room Air Weight: 225 lb 12.054 oz Body Mass Index (BMI) 34.3 Intake and Output for Last 24 Hours 03/28/20 03/29/20 03/30/20 23:59 23:59 23:59 Intake Total 240 / 240 Balance 240 / 240 General: Alert, Oriented x3, Cooperative HEENT: Atraumatic, PERRLA, EOMI, Normocephalic Neck: Supple, No JVD, Negative Carotid Bruits Lungs: Clear to auscultation, Normal air movement Cardiovascular: Regular rate, No murmurs Abdomen: Bowel Sounds Present, Soft, Non Tender Extremities: No edema, Capillary Refill Less than 3 Seconds Skin: No rashes, No breakdown Musculoskeletal: No Tenderness to Palpation of Joints or Extremities Neurological: Cranial nerves II-XII grossly intact Psych/Mental Status: Normal Affect, Appropriate, Alert and oriented to time, place, person, mood and affect Laboratory Results 03/30/20 02:15: WBC 5.8, RBC 5.12, Hgb 16.5, Hct 49.7, MCV 97.1 H, MCH 32.2 H, MCHC 33.2, RDW Std Deviation 45.1 H, RDW Coeff of [place]itez 12.6, Plt Count 108 L, MPV 9.6, Immature Gran % (Auto) 0.200, Neut % (Auto) 46.4 L, Lymph % (Auto) 38.8, [place] % (Auto) 10.9 H, Eos % (Auto) 2.8, Baso % (Auto) 0.9, Absolute Neuts (auto) 2.7, Absolute Lymphs (auto) 2.24, Nucleated RBC % 0 03/30/20 02:15: Sodium 138, Potassium 4.3, Chloride 105, Carbon Dioxide 28.0, Anion Gap 5, BUN 16, Creatinine 1.26, Estim Creat Clear Calc 58.37, Est GFR (MDRD) Af Amer 76, Est GFR (MDRD) Non-Af 63, BUN/Creatinine Ratio 12.7, Glucose 93, Calcium 9.1, Troponin I < 0.015 03/30/20 06:10: Troponin I 0.022 03/30/20 06:51: POC Glucose 99 03/30/20 07:49: Troponin I < 0.015 03/30/20 11:21: POC Glucose 131 H Discharge Diet: Low fat/ Low Cholesterol, 2000 mg Sodium Diet Discharge Activity: Return to Normal Activity Call your doctor if you observe: Shortness of breath, Chest pain, Uncontrolled pain Home Medications: Medications to take at Discharge Aspirin [Aspirin, Baby] 81 mg PO DAILYCM #30 tab.chew 01/24/20 Ticagrelor [Brilinta] 90 mg PO BID #60 tab 01/24/20 atorvastatin 40 mg tablet 40 mg PO QHS #30 tab 02/17/20 carvedilol 3.125 mg tablet 3.125 mg PO BID #60 tab 02/17/20 clopidogrel 75 mg tablet 75 mg PO DAILY #34 tab 02/17/20 metformin 500 mg tablet 500 mg PO BID #60 tab 02/17/20 pantoprazole 40 mg tablet,delayed release 40 mg PO DAILY #30 tab 02/17/20 Primary Care Physician: Tk Dowell MD [Primary Care Provider] - Please follow up with your Primary Care Physician in: 1-2 weeks Disposition: Home Minutes spent on discharge:: 35 Patient Condition:: Stable Medical Necessity - Tobacco Use Smoking Status: Current every day smoker Meaningful Use Info Meaningful Use Diagnoses (Choose all that apply): None applicable <Tk Jin - Last Filed: 03/30/20 13:39> Discharge Date and Diagnosis - Primary Discharge Diagnosis Acute Problems: Active Problems (Last Reviewed 03/30/20 @ 06:[address] Prasad Sadler MD) Chest pain (Acute) - Secondary Discharge Diagnosis Chronic Problems: Chronic Problems (Last Reviewed 03/30/20 @ 06:[address] Prasad Sadler MD) History of coronary artery stent placement (Chronic 01/23/20) PCI-CANDELARIA-OM w/ 2.5 x 28 mm Synergy Stent 01/23/2020 Atherosclerotic heart disease of [place] coronary artery without angina pectoris (Chronic) Tobacco abuse (Chronic) Prediabetes (Chronic) Hospital Course and Treatment Imaging Results: 03/30/20 05:55 Nuclear Stress Test - Chemical [NM] AM (NON MEDS) Operations: None Procedures: Stress test Summary of Care Provided: Patient seen and examined independently. Data reviewed. I agree with the above note by the physician switchboard operator assistant. The patient is a 59 year old M presents with left-sided chest pain. Worse with moving his upper extremity. Different than prior cardiac chest pain. Patient underwent cardiac work-up, including a stress test which was negative. Patient was also seen by cardiology who did not feel additional cardiac work-up is necessary during this hospitalization. Patient discharged home in stable condition. [] - Physical Exam Vitals/I&O's: Vital Signs Temp Pulse Resp BP Pulse Ox 36.5 C L 78 18 142/92 H 93 03/30/20 09:00 03/30/20 09:00 03/30/20 09:00 03/30/20 09:00 03/30/20 09:00 Oxygen Flow Rate (L/min) 2 Oxygen Delivery Method Room Air Weight: 102.4 kg Body Mass Index (BMI) 34.3 Intake and Output for Last 24 Hours 03/28/20 03/29/20 03/30/20 23:59 23:59 23:59 Intake Total 240 / 240 Balance 240 / 240 General: Alert, Cooperative HEENT: Atraumatic, Normocephalic Lungs: Clear to auscultation, Normal air movement Cardiovascular: Regular rate, No murmurs Abdomen: Bowel Sounds Present, Soft, Non Tender Extremities: No edema, No Calf Tenderness Skin: No rashes, No breakdown Laboratory Results 03/30/20 02:15: WBC 5.8, RBC 5.12, Hgb 16.5, Hct 49.7, MCV 97.1 H, MCH 32.2 H, MCHC 33.2, RDW Std Deviation 45.1 H, RDW Coeff of [place] 12.6, Plt Count 108 L, MPV 9.6, Immature Gran % (Auto) 0.200, Neut % (Auto) 46.4 L, Lymph % (Auto) 38.8, [place] % (Auto) 10.9 H, Eos % (Auto) 2.8, Baso % (Auto) 0.9, Absolute Neuts (auto) 2.7, Absolute Lymphs (auto) 2.24, Nucleated RBC % 0 03/30/20 02:15: Sodium 138, Potassium 4.3, Chloride 105, Carbon Dioxide 28.0, Anion Gap 5, BUN 16, Creatinine 1.26, Estim Creat Clear Calc 58.37, Est GFR (MDRD) Af Amer 76, Est GFR (MDRD) Non-Af 63, BUN/Creatinine Ratio 12.7, Glucose 93, Calcium 9.1, Troponin I < 0.015 03/30/20 06:10: Troponin I 0.022 03/30/20 06:51: POC Glucose 99 03/30/20 07:49: Troponin I < 0.015 03/30/20 11:21: POC Glucose 131 H Discharge Diet: Low fat/ Low Cholesterol, 2000 mg Sodium Diet Discharge Activity: Return to Normal Activity Call your doctor if you observe: Shortness of breath, Chest pain Disposition: Home Patient Condition:: Stable Medical Necessity - Tobacco Use Smoking Status: Current every day smoker Meaningful Use Info Meaningful Use Diagnoses (Choose all that apply): None applicable OBSV E&M: 86894 Observation care discharge
== END 2020-03-30 11:07 | disposition home or self-care (01) ==
LOC: ED 02:41 → PCU 03:16
PROVIDERS: Admitting Provider Hospitalist; Emergency Provider Emergency Medicine; PCP Family Medicine
DX: R07.89 Other chest pain (principal); I25.10 Atherosclerotic heart disease of native coronary artery without angina pectoris; I16.0 Hypertensive urgency; E11.9 Type 2 diabetes mellitus without complications; I10 Essential (primary) hypertension; E78.5 Hyperlipidemia, unspecified; R20.0 Anesthesia of skin; R20.2 Paresthesia of skin; E66.9 Obesity, unspecified; J44.9 Chronic obstructive pulmonary disease, unspecified; I25.2 Old myocardial infarction; F17.210 Nicotine dependence, cigarettes, uncomplicated; Z95.5 Presence of coronary angioplasty implant and graft; Z79.899 Other long term (current) drug therapy; Z79.02 Long term (current) use of antithrombotics/antiplatelets; Z79.82 Long term (current) use of aspirin; Z79.84 Long term (current) use of oral hypoglycemic drugs; Z68.34 Body mass index [BMI] 34.0-34.9, adult
CPT/HCPCS: 36415; 71045; 78452; 80048; 82962; 84484; 85025; 93005; 93017; 96374; 96375; 99218; 99284; 99406; A9500; A4216; G0378; J2405; J2785

== ENCOUNTER → 2020-04-18 08:51 | Outpatient (CLI) | payer OTHER, SELFPAY ==
[2020-04-09 13:03] VITALS: BMI 37.3
[2020-04-18 10:33] LABS: Absolute Neutrophil Count 2.8 X10^3/uL (2.0-7.7); Basophil# 0.05 X10^3/uL; Eosinophil# 0.15 X10^3/uL; Eosinophils% 2.9 % (0-5); Hematocrit 48.8 % (40-54); Hemoglobin 16.4 g/dL (13.0-16.5); Lymphocyte % 31.1 % (19-41); Mean Corp Hgb Conc 33.6 g/dL (32-36); Mean Corpuscular Volume 95.3 fL (80-94); Mean Platelet Vol. 10.3 fl (6.2-12.0); Monocyte# 0.54 X10^3/uL; Monocyte% 10.5 % (0-10); NRBC Flagged by Analyzer 0 % (0-5); Neutrophil # 2.79 X10^3/uL (2.7-7.7); Neutrophil % 54.3 % (47-70); Platelet Count 106 K/mm3 (150-450); RBC Distribution Width CV 12.7 % (11.6-14.6); RBC Distribution Width SD 45.2 fl (35.1-43.9); Red Blood Count 5.12 M/mm3 (4.6-6.2); White Blood Count 5.1 K/mm3 (4.4-11.0)
[2020-04-18 10:49] LABS: Hemoglobin A1c 5.7 % (3.8-5.6)
[2020-04-18 11:04] LABS: AST(SGOT) 30 U/L (15-37); Alanine Aminotransfer ALT/SGPT 38 U/L (16-61); Albumin, Serum 3.3 g/dL (3.2-5.0); Alkaline Phosphatase 70 U/L (45-117); Bilirubin, Direct 0.12 mg/dL (0.00-0.30); Cholesterol 98 mg/dL (200); Globulin 5.1 g/dL (2.2-4.2); High Density Lipoprotein 28 mg/dL; Protein, Total 8.4 g/dL (6.4-8.2); Triglycerides 156 mg/dL; Very Low Density Lipoprotein 31 mg/dL (5-40)
[2020-04-18 11:13] LABS: Microalbumin:Creatinine Ratio 1457.1 mg/g CRE (<30 mg/g CRE)
[2020-04-18 12:38] LABS: T4 Free Direct 1.17 ng/dL (0.76-1.46)
== END ==
LOC: LAB 08:54
PROVIDERS: PCP Family Medicine; Referring Provider Physician Assistant Medical; Visit Provider Physician Assistant Medical
DX: E11.59 Type 2 diabetes mellitus with other circulatory complications (principal); I25.10 Atherosclerotic heart disease of native coronary artery without angina pectoris
CPT/HCPCS: 36415; 80061; 80076; 82043; 82570; 83036; 84439; 84443; 85025

== ENCOUNTER 2020-04-19 09:41 | Day surgery (SDC) | payer OTHER, SELFPAY ==
[2020-04-09 13:03] VITALS: BMI 37.3
[2020-04-19] VITALS (7 sets, daily range): BP systolic 90–132; BP diastolic 59–97; PULSE 67–89; RESP 16–18; TEMP 36.2–36.8; O2SAT 92–96; BMI 36.6
--- NOTE | 2020-04-19 08:25 | HP_ITS ---
Intake Vital Signs 04/09/20 Height 5 ft 6 in 04/09/20 Weight: 231 lb 4 oz 04/09/20 BMI 37.3 04/09/20 BP 174/102 H 04/09/20 Blood Pressure Location Rt brachial 04/09/20 Position Sitting 04/09/20 Respiration 18 04/09/20 Pulse 91 04/09/20 Pulse Source Monitor 04/09/20 Temp 97.2 F L 04/09/20 Temp Source Temporal 04/09/20 Pulse Oximetry (%) 94 04/09/20 Oxygen Delivery Method room air Intake Visit Reasons: CSCOPE Chief Complaint: black stools Film Or Videotape Editor Required: No Is patient in pain?: No Allergies No Known Allergies Allergy (Verified 04/09/20 13:05) Medications Aspirin [Aspirin, Baby] 81 mg PO DAILYCM #30 tab.chew 01/24/20 [Rx Confirmed 04/09/20] atorvastatin 40 mg tablet 40 mg PO QHS #30 tab 02/17/20 [Rx Confirmed 04/09/20] carvedilol 3.125 mg tablet 3.125 mg PO BID #60 tab 02/17/20 [Rx Confirmed 04/09/20] clopidogrel 75 mg tablet 75 mg PO DAILY #34 tab 02/17/20 [Rx Confirmed 04/09/20] metformin 500 mg tablet 500 mg PO BID #60 tab 02/17/20 [Rx Confirmed 04/09/20] pantoprazole 40 mg tablet,delayed release 40 mg PO DAILY #30 tab 02/17/20 [Rx Confirmed 04/09/20] PFSH Medical History Atherosclerotic heart disease of [place] coronary artery without angina pectoris (Chronic) NSTEMI (non-ST elevated myocardial infarction) (Inactive 01/22/20) Hyperglycemia (Inactive) Tobacco abuse (Chronic) Prediabetes (Chronic) Black stool (Acute) Borderline diabetes (Acute) Hyperlipidemia (Acute) Hypertension (Chronic) Surgical History History of coronary artery stent placement (Chronic 01/23/20) Social History (Updated 04/09/20 @ 13:[address] Juancho Meade MD) Smoking Status: Current every day smoker HPI HPI Surgical H&P: Yes HPI: LOKI ENCARNACION, is a 59 M who presents to the office today for Evaluation for endoscopy. Patient had a heart attack and angioplasty with stent placement in January of this year. After this episode he developed black stools while in the hospital that did resolve on their own. He was started on a proton pump inhibitor and Carafate and has remained on his proton pump inhibitor and he has not had any further black stools. Patient has never had a colonoscopy. He has no family history of colon cancer. He is not complaining of any abdominal pain. ROS General General: No weight change, appetite, fatigue, colon cancer, breast cancer or weakness HEENT HEENT: Yes eye surgery; no difficulty swallowing, eye injury, swollen glands or hoarseness Endo Endocrine: Yes diabetes mellitus; no thyroid disease, thyroid cancer, Hair loss, heat intolerance or cold intolerance Skin Skin: No rash or changing moles Breast Breast: No left breast lump, right breast lump, nipple discharge, breast pain, abnormal mammogram, abnormal US or breast enlargement Musc Musculoskeletal: No back problems, arthritis, rheumatoid arthritis, gout or joint pain Cardio Cardiovascular: Yes heart disease, high blood pressure, heart attack and heart stent; no murmur, pacemaker, atrial fibrillation, palpitations, shortness of breat with exertion or chest pain Psych Psychiatric: No depression, anxiety or hearing voices Resp Respiratory: No shortness of breath, No sleep apnea, Yes cough, No COPD, No asthma, No emphysema, No wheezing Gastro Gastrointestinal: No abdominal pain, No nausea or vomiting, No diarrhea, No constipation, Yes blood in stool, No acid reflux, No hemorrhoids, No ulcers, No gallbladder problem, Yes black,tarry stools [place] Hematologic: Yes blood thinners, No blood disorders, No bleeding, No anemia, No blood clots Neuro Neurologic: No system reviewed and no additional complaints, except as docu, No as per HPI, No abnormal walking, No abnormal hearing, No abnormal movements, No abnormal speech, No behavioral changes, No burning sensations, No confusion, No seizure-like activity, No unsteadiness, No dizziness, No localized weakness, No frequent falls, No headache(s), No lack of coordination, No loss of vision, No memory loss, No numbness, No other visual disturbances, No radiating pain, No restless legs, No sensory deficit, No fainting, No tingling, No tremor(s), No weakness, No other Exam Const General: no acute distress, well developed, well hydrated Orientation: oriented to person, oriented to place, oriented to time [facility] Head: normocephalic, atraumatic Ears: external ears normal Mouth: moist mucous membranes Eyes Sclera: sclerae normal Pupils: normal by confrontation Neck Neck: no lymphadenopathy noted Neck mass: No Thyroid: thyroid normal, symmetrical Chest Chest palpation & inspection: normal inspection of the chest Breast Palpation: No nipple discharge Resp Effort & Inspection: normal respiratory effort Auscultation: clear to auscultation bilaterally Percussion: percussion normal Cardio Rate: regular rate Rhythm: regular rhythm Heart Sounds: no murmurs GI Inspection: obesity Palpation: soft, no hepatosplenomegaly, no masses, nontender Rectal Exam: other Other: Rectal exam deferred. Extrem General: normal to inspection, no clubbing, cyanosis or edema Assessment & Plan Problems 1. Melena K92.1 2. NSTEMI (non-ST elevated myocardial infarction) I21.4 Plan I have discussed the above with the patient. I have offered the patient colonoscopy As well as an EGD for evaluation. I have explained the risks/benefits of the procedure and described the procedure. I have discussed the risks with the patient, including but not limited to: infection, bleeding, perforation of the GI tract requiring emergency surgery, inability to complete the procedure, injury to any internal organs, complications of anesthesia, etc. - the patient understands and agrees to proceed. I have answered all the patient's questions to the patient's satisfaction and the patient has no further questions. The patient has been given instructions for the colon cleansing preparation. The patient will remain on his blood thinners. I will not be doing any biopsies or polyp removals. Coding Level of Care Code Off vis,est,level 3 Diagnoses Melena K92.1 NSTEMI (non-ST elevated myocardial infarction) I21.4 COVID (Procedure Consent) Procedure Criteria Procedure Criteria: Yes Elective The surgeon/proceduralist and patient have discussed in detail the risk of exposure to and/or potential harm posed by the COVID-19 virus with having a surgery/procedure at this time versus the risk of? delaying the surgery/procedure. It is not possible to know either the risk of delaying the surgery or procedure or chance of getting an infection with perfect accuracy, but a joint decision was made between the patient and the surgeon/proceduralist ?to proceed at this time with the scheduled surgery/procedure as indicated on the consent form. I have re-examined the patient. There are no clinical changes since date of exam.
[2020-04-19] MEDS: Lactated Ringers 1,000 ML 100 ML IV (10:18)
[2020-04-19 10:20] LABS: Bedside Glucose 143 mg/dL (70-110)
--- NOTE | 2020-04-19 11:52 | OP.EGD_ITS ---
Patient Name: Chemo Britton Procedure Date: 04/19/2020 11:10 AM Date of : 1960 Age: 59 Procedure: Upper GI endoscopy Indications: Melena Providers: Juancho Meade MD Referring MD: Tk Dowell Medicines: See the Anesthesia note for documentation of the administered medications Patient Profile: This is a 59 year old male. Refer to note in patient chart for documentation of history and physical. Complications: No immediate complications. Procedure: Pre-Anesthesia Assessment: - Prior to the procedure, a History and Physical was performed, and patient medications and allergies were reviewed. The patient's tolerance of previous anesthesia was also reviewed. The risks and benefits of the procedure and the sedation options and risks were discussed with the patient. All questions were answered, and informed consent was obtained. Prior Anticoagulants: The patient has taken Plavix (clopidogrel). ASA Grade Assessment: III - A patient with severe systemic disease. After reviewing the risks and benefits, the patient was deemed in satisfactory condition to undergo the procedure. After obtaining informed consent, the endoscope was passed under direct vision. Throughout the procedure, the patient's blood pressure, pulse, and oxygen saturations were monitored continuously. The Endoscope was introduced through the mouth, and advanced to the second part of duodenum. The upper GI endoscopy was accomplished without difficulty. The patient tolerated the procedure well. Scope In: 11:30:52 AM Scope Out: 11:33:41 AM Total Procedure Duration Time 0 hours 2 minutes 49 seconds Findings: The examined esophagus was normal. Diffuse moderate inflammation characterized by erythema, granularity and linear erosions was found in the prepyloric region of the stomach. No biopsies or other specimens were collected for this exam. The examined duodenum was normal. No biopsies or other specimens were collected for this exam. Multiple small sessile polyps with no bleeding and no stigmata of recent bleeding were found in the prepyloric region of the stomach. No biopsies or other specimens were collected for this exam. Patient had numerous fundic gland polyps which I did not biopsy Impression: - Normal esophagus. - Gastritis. No specimens collected. - Normal examined duodenum. No specimens collected. - Multiple gastric polyps. No specimens collected. Recommendation: - Discharge patient to home. - Resume previous diet. - Continue present medications. - Repeat upper endoscopy (date not yet determined) for surveillance. - Return to primary care physician in 1 week. Procedure Code(s): --- Professional --- 45579, Esophagogastroduodenoscopy, flexible, transoral; diagnostic, including collection of specimen(s) by brushing or washing, when performed (separate procedure) Diagnosis Code(s): --- Professional --- K29.70, Gastritis, unspecified, without bleeding K31.7, Polyp of stomach and duodenum K92.1, Melena (includes Hematochezia) CPT copyright 2017 [employer]. All rights reserved. The codes documented in this report are preliminary and upon industrial relations director review may be revised to meet current compliance requirements. MD Juancho Trent MD 04/19/2020 11:51:35 AM This report has been signed electronically. Number of Addenda: 0 Note Initiated On: 04/19/2020 11:10 AM
--- NOTE | 2020-04-19 11:52 | OP.CCLET_ITS ---
04/19/2020 Tk Dowell [address] [place] [address] Re : Upper GI endoscopy procedure for Chemo Britton Dear Dr. Dowell This procedure was performed on April. My impressions and recommendations are as follows: Impressions : - Normal esophagus. - Gastritis. No specimens collected. - Normal examined duodenum. No specimens collected. - Multiple gastric polyps. No specimens collected. Recommendations : - Discharge patient to home. - Resume previous diet. - Continue present medications. - Repeat upper endoscopy (date not yet determined) for surveillance. - Return to primary care physician in 1 week. My findings are described in the full procedure note, which is enclosed. If I can be of further assistance, please feel free to contact me at Doctor phone number(s): , Fax: [phone], Work: . Sincerely, MD Juancho Trent MD 04/19/2020 11:51:35 AM This report has been signed electronically.
--- NOTE | 2020-04-19 11:56 | OP.CCLET_ITS ---
04/19/2020 Tk Dowell [address] [place] [address] Re : Colonoscopy procedure for Chemo Nolascovin Dear Dr. Dowell This procedure was performed on April. My impressions and recommendations are as follows: Impressions : - Eight 5 to 10 mm polyps in the sigmoid colon, in the descending colon, in the transverse colon, in the ascending colon and in the cecum. No specimens collected. - Non-bleeding internal hemorrhoids. - The examination was otherwise normal. Recommendations : - Discharge patient to home. - Resume previous diet. - Continue present medications. - Repeat colonoscopy at appointment to be scheduled for retreatment. - Telephone my office in 1 week. My findings are described in the full procedure note, which is enclosed. If I can be of further assistance, please feel free to contact me at Doctor phone number(s): , Fax: [phone], Work: . Sincerely, MD Juancho Trent MD 04/19/2020 11:56:13 AM This report has been signed electronically.
--- NOTE | 2020-04-19 11:56 | OP.COLON_ITS ---
Patient Name: Chemo Britton Procedure Date: 04/19/2020 11:34 AM Date of : 1960 Age: 59 Procedure: Colonoscopy Indications: Melena Providers: Juancho Meade MD Referring MD: Tk Dowell Medicines: See the Anesthesia note for documentation of the administered medications Patient Profile: This is a 59 year old male. Refer to note in patient chart for documentation of history and physical. Last Colonoscopy: none. The patient's first colonoscopy is today. Complications: No immediate complications. Procedure: Pre-Anesthesia Assessment: - Prior to the procedure, a History and Physical was performed, and patient medications and allergies were reviewed. The patient's tolerance of previous anesthesia was also reviewed. The risks and benefits of the procedure and the sedation options and risks were discussed with the patient. All questions were answered, and informed consent was obtained. Prior Anticoagulants: The patient has taken Plavix (clopidogrel). ASA Grade Assessment: III - A patient with severe systemic disease. After reviewing the risks and benefits, the patient was deemed in satisfactory condition to undergo the procedure. After I obtained informed consent, the scope was passed under direct vision. Throughout the procedure, the patient's blood pressure, pulse, and oxygen saturations were monitored continuously. The colonoscope was introduced through the anus and advanced to the cecum, identified by appendiceal orifice and ileocecal valve. The colonoscopy was performed without difficulty. The patient tolerated the procedure well. The quality of the bowel preparation was adequate to identify polyps 6 mm and larger in size. Scope In: 11:37:01 AM Scope Withdrawal Time 0 hours 6 minutes 12 seconds Scope Out: 11:46:25 AM Total Procedure Duration Time 0 hours 9 minutes 24 seconds Findings: Eight sessile polyps were found in the sigmoid colon, descending colon, transverse colon, ascending colon and cecum. The polyps were 5 to 10 mm in size. No biopsies or other specimens were collected for this exam. None of these polyps were biopsied or removed secondary to him being on Plavix and our inability to remove him off of his Plavix. I believe that these are safe to watch until he is about a year out from his stent placement at which time we should be able to remove his Plavix and then therapeuticly remove these polyps all of which will require snare removal. Non-bleeding internal hemorrhoids were found during retroflexion. The hemorrhoids were mild and small. The exam was otherwise without abnormality. Impression: - Eight 5 to 10 mm polyps in the sigmoid colon, in the descending colon, in the transverse colon, in the ascending colon and in the cecum. No specimens collected. - Non-bleeding internal hemorrhoids. - The examination was otherwise normal. Recommendation: - Discharge patient to home. - Resume previous diet. - Continue present medications. - Repeat colonoscopy at appointment to be scheduled for retreatment. - Telephone my office in 1 week. Procedure Code(s): --- Professional --- 47967, Colonoscopy, flexible; diagnostic, including collection of specimen(s) by brushing or washing, when performed (separate procedure) Diagnosis Code(s): --- Professional --- D12.5, Benign neoplasm of sigmoid colon D12.4, Benign neoplasm of descending colon D12.3, Benign neoplasm of transverse colon (hepatic flexure or splenic flexure) D12.2, Benign neoplasm of ascending colon D12.0, Benign neoplasm of cecum K64.8, Other hemorrhoids K92.1, Melena (includes Hematochezia) CPT copyright 2017 [employer]. All rights reserved. The codes documented in this report are preliminary and upon fusing machine operator review may be revised to meet current compliance requirements. MD Juancho Trent MD 04/19/2020 11:56:13 AM This report has been signed electronically. Number of Addenda: 0 Note Initiated On: 04/19/2020 11:34 AM
== END 2020-04-19 12:36 | disposition home or self-care (01) ==
LOC: EN 09:42 → AC 09:44
PROVIDERS: PCP Family Medicine; Referring Provider Family Medicine; Visit Provider Surgery
PROC: 0DJD8ZZ Inspection of Lower Intestinal Tract, Via Natural or Artificial Opening Endoscopic (ICD-10-PCS; CPT 45378; principal; 2020-04-19 10:55)
DX: K63.5 Polyp of colon (principal); K64.8 Other hemorrhoids; K31.7 Polyp of stomach and duodenum; K29.70 Gastritis, unspecified, without bleeding; I25.10 Atherosclerotic heart disease of native coronary artery without angina pectoris; I25.2 Old myocardial infarction; E78.5 Hyperlipidemia, unspecified; I10 Essential (primary) hypertension; F17.200 Nicotine dependence, unspecified, uncomplicated; K21.9 Gastro-esophageal reflux disease without esophagitis; E11.9 Type 2 diabetes mellitus without complications; Z79.84 Long term (current) use of oral hypoglycemic drugs; Z79.02 Long term (current) use of antithrombotics/antiplatelets; Z20.828 Contact with and (suspected) exposure to other viral communicable diseases; Z79.899 Other long term (current) drug therapy
CPT/HCPCS: 43235; 45378; 82962; 87426; C9803; J7120; J2405

== ENCOUNTER → 2020-06-04 10:00 | Outpatient (CLI) | payer OTHER, SELFPAY ==
[2020-04-19 10:11] VITALS: BMI 36.6
[2020-06-04 10:30] LABS: Absolute Lymphocyte Count 1.61 X10^3/uL (0.83-4.51); Absolute Neutrophil Count 2.7 X10^3/uL (2.0-7.7); Basophil# 0.05 X10^3/uL; Eosinophil# 0.15 X10^3/uL; Hematocrit 47.6 % (40-54); Hemoglobin 16.2 g/dL (13.0-16.5); Lymphocyte # 1.61 X10^3/ul (4.0); Lymphocyte % 32.1 % (19-41); Mean Corpuscular Hgb 32.5 pg (27.0-32.0); Mean Corpuscular Volume 95.4 fL (80-94); Mean Platelet Vol. 9.7 fl (6.2-12.0); Monocyte# 0.46 X10^3/uL; Monocyte% 9.2 % (0-10); NRBC Flagged by Analyzer 0 % (0-5); Neutrophil # 2.74 X10^3/uL (2.7-7.7); Neutrophil % 54.5 % (47-70); Platelet Count 107 K/mm3 (150-450); RBC Distribution Width CV 12.7 % (11.6-14.6); RBC Distribution Width SD 44.1 fl (35.1-43.9); Red Blood Count 4.99 M/mm3 (4.6-6.2)
[2020-06-04 10:51] LABS: Hemoglobin A1c 5.9 % (3.8-5.6)
[2020-06-04 10:54] LABS: ALB/GLOB Ratio 0.6 RATIO (0.9-2.4); AST(SGOT) 37 U/L (15-37); Alanine Aminotransfer ALT/SGPT 39 U/L (16-61); Albumin, Serum 3.1 g/dL (3.2-5.0); Alkaline Phosphatase 61 U/L (45-117); Anion Gap 6 (5-15); BUN 14 mg/dL (7-18); BUN/Creat Ratio 13.3 RATIO (10-20); Calcium,Total 8.9 mg/dL (8.5-10.1); Chloride 99 mmol/L (98-107); Creatinine, Serum 1.05 mg/dL (0.70-1.30); EST Glomerular Filtration Rate 77 mL/min (>60); Est Glom Filt Rate - Afr Amer 94 mL/min (>60); Globulin 5.1 g/dL (2.2-4.2); Glucose 134 mg/dL (74-106); Potassium 3.8 mmol/L (3.5-5.1); Protein, Total 8.2 g/dL (6.4-8.2); Sodium Level 135 mmol/L (136-145); T4 Free Direct 1.33 ng/dL (0.76-1.46); Thyroid Stim Hormone (TSH) 3.87 uIU/mL (0.358-3.74)
== END ==
PROVIDERS: PCP Family Medicine; Referring Provider Family Medicine; Visit Provider Family Medicine
DX: E11.29 Type 2 diabetes mellitus with other diabetic kidney complication (principal); E11.59 Type 2 diabetes mellitus with other circulatory complications; E03.9 Hypothyroidism, unspecified
CPT/HCPCS: 36415; 80053; 82043; 82570; 83036; 84439; 84443; 84481; 85025

== ENCOUNTER → 2020-08-02 14:16 | Outpatient (CLI) | payer OTHER, SELFPAY ==
[2020-06-28 15:56] VITALS: BMI 36.3
[2020-08-02 14:44] LABS: Protein, Urine (Random) 150.3 mg/dL (<11.9); Protein:Creat Ratio 2050 mg/g CRE (0-200)
== END ==
LOC: POLAB3 14:16
PROVIDERS: PCP Family Medicine; Visit Provider Internal Medicine Nephrology
DX: N18.2 Chronic kidney disease, stage 2 (mild) (principal)
CPT/HCPCS: 82570; 84156

== ENCOUNTER → 2020-08-17 08:29 | Outpatient (CLI) | payer OTHER, SELFPAY ==
[2020-06-28 15:56] VITALS: BMI 36.3
--- NOTE | 2020-08-17 08:33 | RDU_ITS ---
Reason For Study: HTN Right Renal Artery Left Renal Artery Right renal artery ostium Left renal artery ostium 65.8/18.1 123.9/32.6 RSV/EDV. PSV/EDV. Right renal artery proximal Left renal artery proximal PSV/EDV 148.2/40 PSV/EDV. 63.5/18.1 . Right renal artery mid 133.8/31.4 Left renal artery mid 71.5/18.1 PSV/EDV. PSV/EDV . Right renal artery distal Left renal artery distal 109.5/32.7 163.3/47.6 PSV/EDV. PSV/EDV. Right RAR 3.35. Left RAR 2.24. Right Renal Parenchyma Left Renal Parenchyma Upper Pole Medula 37.4/14.1 Left upper pole medulla 32.8/10.9 PSV/EDV. PSV/EDV . Right upper pole medulla EDR 0.38 . Left upper pole medulla EDR 0.33 . Right upper pole medulla R.I. Left upper pole medulla R.I. 0.67 . 0.62 . UP Cortex 13.7/4.3 PSV/EDV. Upper Alejandro Cortx 17.7/6.7 PSV/EDV. Left upper pole cortex EDR 0.32 . Right upper pole cortex EDR 0.38 . Left upper pole cortex R.I. 0.68 . Right upper pole cortex R.I. 0.62 . Left lower Pole medulla 28.5/9.3 Right lower Pole medulla 31.9/9.8 PSV/EDV . PSV/EDV . Left lower pole medulla EDR 0.33 . Right lower pole medulla EDR 0.31 . Left lower pole medulla R.I. 0.67 . Right lower pole medulla R.I. Lower Pole Cortx 19.7/7.1 PSV/EDV. 0.69 . Left lower pole cortex EDR 0.36 . Lower Pole Cortex 19.6/6.1 PSV/EDV. Left lower pole cortex R.I. 0.64 . Right lower pole cortex EDR 0.31 . Left Renal Hilar Right lower pole cortex R.I. 0.69 . LT Hilar avg 47.1/17.5 PSV/EDV . Right Renal Hilar Left hilar acceleration time 60 Right Hilar avg 52.9/16.3 PSV/EDV. m/sec. Right hilar acceleration time 40 Left Renal Dimensions m/sec. Left kidney size 13.16 cm . Right Renal Dimensions Left cortical dimension 1.31 cm . Right kidney size 12.96 cm . Nonvascularized structure noted in Right cortical dimension 1.80 cm . the mid pole of the kidney measuring approximently 3.02 x 3.12 cm. Aorta Proximal abdominal aorta 2.20 x 2.23 cm . Proximal abdominal aorta peak systolic velocity is 48.8 cm/sec . Distal abdominal aorta 1.83 x 1.83 cm . Distal abdominal aorta peak systolic velocity is 35.8 cm/sec . VL/Renal Artery Duplex Ultrasound Interpretation Summary Maximal aortic diameter proximally at 2.2 x 2.23 cm. Less than 60% stenosis right renal artery Less than 60% stenosis left renal artery Maintained right renal length 12.96 cm Maintained left renal length 13.16 cm Nonvascular left midpole structure measuring 3.02 x 3.12 cm consistent with a c yst. Clinical correlation would be appropriate Ordering Physician: Georgina Santiago Referring Physician: Tk Dowell MD Performed By: Concepcion Waller RVT
== END ==
PROVIDERS: PCP Family Medicine; Referring Provider Internal Medicine Nephrology; Visit Provider Internal Medicine Nephrology
DX: I10 Essential (primary) hypertension (principal)
CPT/HCPCS: 93975

== ENCOUNTER → 2020-09-04 09:58 | Outpatient (CLI) | payer OTHER, SELFPAY ==
[2020-06-28 15:56] VITALS: BMI 36.3
[2020-09-04 11:42] LABS: Albumin, Serum 3.2 g/dL (3.2-5.0); BUN 16 mg/dL (7-18); Calcium,Total 9.1 mg/dL (8.5-10.1); Chloride 101 mmol/L (98-107); EST Glomerular Filtration Rate 82 mL/min (>60); Est Glom Filt Rate - Afr Amer 99 mL/min (>60); Glucose 130 mg/dL (74-106); Phosphorus 3.8 mg/dL (2.5-4.9); Potassium 4.2 mmol/L (3.5-5.1); Sodium Level 136 mmol/L (136-145)
[2020-09-06 16:08] LABS: HEPATITIS B SURFACE AG Negative (Negative); Hepatitis A AB, Total Negative (Negative); Hepatitis A IgM Antibody Negative (Negative); Hepatitis B Core AB IgM Negative (Negative); Hepatitis B Core Ab Total Negative (Negative); Hepatitis C Ab <0.1 s/co ratio (0.0-0.9)
[2020-09-07 08:36] LABS: Hep B Surface Antibodies Non Reactive (.)
== END ==
LOC: LAB 10:00
PROVIDERS: PCP Family Medicine; Referring Provider Internal Medicine Nephrology; Visit Provider Internal Medicine Nephrology
DX: N18.2 Chronic kidney disease, stage 2 (mild) (principal); R80.9 Proteinuria, unspecified
CPT/HCPCS: 36415; 80069; 86038; 86335; 86704; 86705; 86706; 86708; 86709; 86803; 87340

== ENCOUNTER → 2020-10-25 11:00 | Outpatient (CLI) | payer OTHER, SELFPAY ==
[2020-06-28 15:56] VITALS: BMI 36.3
[2020-10-25 12:33] LABS: ALB/GLOB Ratio 0.6 RATIO (0.9-2.4); AST(SGOT) 36 U/L (15-37); Alanine Aminotransfer ALT/SGPT 42 U/L (16-61); Albumin, Serum 3.3 g/dL (3.2-5.0); Alkaline Phosphatase 73 U/L (45-117); Anion Gap 7 (5-15); BUN 10 mg/dL (7-18); BUN/Creat Ratio 9.3 RATIO (10-20); Calcium,Total 8.9 mg/dL (8.5-10.1); Chloride 103 mmol/L (98-107); Cholesterol 105 mg/dL (200); Creatinine, Serum 1.07 mg/dL (0.70-1.30); EST Glomerular Filtration Rate 76 mL/min (>60); Est Glom Filt Rate - Afr Amer 91 mL/min (>60); Globulin 5.2 g/dL (2.2-4.2); Glucose 119 mg/dL (74-106); High Density Lipoprotein 28 mg/dL; Potassium 3.9 mmol/L (3.5-5.1); Protein, Total 8.5 g/dL (6.4-8.2); Sodium Level 138 mmol/L (136-145); T4 Free Direct 1.28 ng/dL (0.76-1.46); Thyroid Stim Hormone (TSH) 3.66 uIU/mL (0.358-3.74); Triglycerides 157 mg/dL; Very Low Density Lipoprotein 31 mg/dL (5-40)
== END ==
LOC: MFPLAB 11:05
PROVIDERS: PCP Family Medicine; Referring Provider Family Medicine; Visit Provider Family Medicine
DX: E11.59 Type 2 diabetes mellitus with other circulatory complications (principal); E03.9 Hypothyroidism, unspecified
CPT/HCPCS: 36415; 80053; 80061; 84439; 84443

== ENCOUNTER → 2020-12-20 10:50 | Outpatient (CLI) | payer OTHER, SELFPAY ==
[2020-06-28 15:56] VITALS: BMI 36.3
[2020-12-20 12:40] LABS: Protein, Urine (Random) 133.2 mg/dL (<11.9); Protein:Creat Ratio 1815 mg/g CRE (0-200)
[2020-12-20 12:44] LABS: Albumin, Serum 3.3 g/dL (3.2-5.0); BUN 14 mg/dL (7-18); BUN/Creat Ratio 12.8 RATIO (10-20); Calcium,Total 8.9 mg/dL (8.5-10.1); Chloride 101 mmol/L (98-107); Creatinine, Serum 1.09 mg/dL (0.70-1.30); EST Glomerular Filtration Rate 74 mL/min (>60); Est Glom Filt Rate - Afr Amer 89 mL/min (>60); Glucose 147 mg/dL (74-106); Phosphorus 3.1 mg/dL (2.5-4.9); Sodium Level 137 mmol/L (136-145)
== END ==
LOC: POLAB3 10:50
PROVIDERS: PCP Family Medicine; Visit Provider Internal Medicine Nephrology
DX: N18.2 Chronic kidney disease, stage 2 (mild) (principal); R80.9 Proteinuria, unspecified
CPT/HCPCS: 36415; 80069; 82570; 84156

== ENCOUNTER → 2021-03-14 10:31 | Outpatient (CLI) | payer OTHER, SELFPAY ==
[2021-03-14 11:50] LABS: BUN 12 mg/dL (7-18); BUN/Creat Ratio 10.8 RATIO (10-20); Calcium,Total 8.9 mg/dL (8.5-10.1); Chloride 102 mmol/L (98-107); Creatinine, Serum 1.11 mg/dL (0.70-1.30); EST Glomerular Filtration Rate 72 mL/min (>60); Est Glom Filt Rate - Afr Amer 87 mL/min (>60); Glucose 129 mg/dL (74-106); Phosphorus 3.6 mg/dL (2.5-4.9); Potassium 4.3 mmol/L (3.5-5.1); Sodium Level 140 mmol/L (136-145)
[2021-03-14 11:52] LABS: Protein, Urine (Random) 285.1 mg/dL (<11.9); Protein:Creat Ratio 1966 mg/g CRE (0-200)
== END ==
PROVIDERS: PCP Family Medicine; Visit Provider Internal Medicine Nephrology
DX: N18.2 Chronic kidney disease, stage 2 (mild) (principal)
CPT/HCPCS: 36415; 80069; 82570; 84156

== ENCOUNTER 2021-07-04 09:41 | Outpatient (CLI) | payer OTHER, SELFPAY ==
[2021-07-04 10:32] LABS: Absolute Lymphocyte Count 1.01 X10^3/uL (0.83-4.51); Absolute Neutrophil Count 3.1 X10^3/uL (2.0-7.7); Basophil# 0.03 X10^3/uL; Basophil% 0.6 % (0-1); Eosinophil# 0.17 X10^3/uL; Eosinophils% 3.5 % (0-5); Hematocrit 48.2 % (40-54); Hemoglobin 16.7 g/dL (13.0-16.5); Lymphocyte # 1.01 X10^3/ul (0.83-4.51); Lymphocyte % 21.1 % (19-41); Mean Corp Hgb Conc 34.6 g/dL (32-36); Mean Corpuscular Hgb 32.7 pg (27.0-32.0); Mean Corpuscular Volume 94.5 fL (80-94); Mean Platelet Vol. 10.3 fl (6.2-12.0); Monocyte# 0.48 X10^3/uL; NRBC Flagged by Analyzer 0 % (0-5); Neutrophil # 3.09 X10^3/uL (2.7-7.7); Neutrophil % 64.6 % (47-70); Platelet Count 103 K/mm3 (150-450); RBC Distribution Width CV 12.8 % (11.6-14.6); RBC Distribution Width SD 44.6 fl (35.1-43.9); White Blood Count 4.8 K/mm3 (4.4-11.0)
[2021-07-04 11:20] LABS: ALB/GLOB Ratio 0.7 RATIO (0.9-2.4); AST(SGOT) 30 U/L (15-37); Alanine Aminotransfer ALT/SGPT 33 U/L (16-61); Albumin, Serum 3.1 g/dL (3.2-5.0); Alkaline Phosphatase 66 U/L (45-117); Anion Gap 4 (5-15); BUN 13 mg/dL (7-18); Calcium,Total 8.6 mg/dL (8.5-10.1); Chloride 103 mmol/L (98-107); EST Glomerular Filtration Rate 82 mL/min (>60); Est Glom Filt Rate - Afr Amer 99 mL/min (>60); Globulin 4.5 g/dL (2.2-4.2); Glucose 133 mg/dL (74-106); Potassium 4.2 mmol/L (3.5-5.1); Protein, Total 7.6 g/dL (6.4-8.2); Sodium Level 137 mmol/L (136-145)
[2021-07-04 13:35] LABS: Microalbumin:Creatinine Ratio 1676.3 mg/g CRE (<30 mg/g CRE)
== END 2021-07-04 23:59 | disposition home or self-care (01) ==
PROVIDERS: PCP Family Medicine; Referring Provider Family Medicine; Visit Provider Family Medicine
DX: I25.10 Atherosclerotic heart disease of native coronary artery without angina pectoris (principal); E11.29 Type 2 diabetes mellitus with other diabetic kidney complication; E11.59 Type 2 diabetes mellitus with other circulatory complications
CPT/HCPCS: 36415; 80053; 82043; 82570; 85025

== ENCOUNTER → 2021-10-08 | Outpatient (CLI) | payer OTHER, SELFPAY ==
[2021-10-08 12:46] LABS: Protein, Urine (Random) 196.1 mg/dL (<11.9); Protein:Creat Ratio 1391 mg/g CRE (0-200)
[2021-10-08 12:48] LABS: Albumin, Serum 3.4 g/dL (3.2-5.0); BUN 15 mg/dL (7-18); BUN/Creat Ratio 14.7 RATIO (10-20); Calcium,Total 9.2 mg/dL (8.5-10.1); Chloride 103 mmol/L (98-107); Creatinine, Serum 1.02 mg/dL (0.70-1.30); EST Glomerular Filtration Rate 80 mL/min (>60); Est Glom Filt Rate - Afr Amer 96 mL/min (>60); Glucose 131 mg/dL (74-106); Phosphorus 3.7 mg/dL (2.5-4.9); Sodium Level 138 mmol/L (136-145)
== END | disposition home or self-care (01) ==
LOC: POLAB3 10:29
PROVIDERS: PCP Family Medicine; Visit Provider Internal Medicine Nephrology
DX: N18.2 Chronic kidney disease, stage 2 (mild) (principal)
CPT/HCPCS: 36415; 80069; 82570; 84156

== ENCOUNTER → 2021-11-11 | Outpatient (CLI) | payer OTHER, SELFPAY ==
--- NOTE | 2021-11-11 12:31 | ECHOCS_ITS ---
Version 2 Reason For Study: CMP Procedure This was a 2D Doppler, Color Flow transthoracic echocardiogram. The study was technically difficult. Contrast injection was performed. Exam performed in department. Left Ventricle Normal LV size. Left ventricular systolic function is normal. The estimated ejection fraction is 50 %. Stage 1 diastolic dysfunction. No regional wall motion abnormalities noted. Right Ventricle Normal RV size. Normal systolic function. Atria Normal left atrium. Mitral Valve Normal mitral valve. Tricuspid Valve Normal tricuspid valve. Aortic Valve Trisinus/trileaflet aortic valve. Pulmonic Valve The pulmonic valve is not well visualized. Great Vessels Normal aortic root. Pericardium/Pleural No pericardial effusion. Medication 22 gauge I.V. with prn adaptor inserted into right arm. Diluted definity 2ml given slow IV push to enhance endocardial definition. MMode/2D Measurements & Calculations LVIDd: 6.2 cm IVSd: 1.7 cm LAV(MOD-sp4): 45.4 ml LVIDs: 3.9 cm LVPWd: 0.95 cm FS: 36.9 % LVAd ap4: 34.9 cm2 SV(MOD-sp4): 65.4 ml SV(sp4-el): 68.8 ml LVLd ap4: 8.8 cm EDV(MOD-sp4): 118.3 ml EDV(sp4-el): 118.3 ml LVAs ap4: 20.4 cm2 LVLs ap4: 7.1 cm ESV(MOD-sp4): 52.9 ml ESV(sp4-el): 49.5 ml EF(MOD-sp4): 55.3 % EF(sp4-el): 58.2 % LA A4 area: 16.9 cm2 RA A4 area: 10.6 cm2 Doppler Measurements & Calculations MV E max lisa: 70.2 cm/sec Ao V2 max: 111.6 cm/sec LV V1 max: 86.3 cm/sec MV A max lisa: 85.8 cm/sec Ao max P.0 mmHg LV V1 max P.0 mmHg MV E/A: 0.82 ECHO/Echo Complete W/ Contrast Interpretation Summary Normal LV size. Left ventricular systolic function is normal. The estimated ejection fraction is 50 %. Stage 1 diastolic dysfunction. Contrast injection was performed. The study was technically limited. Ordering Physician: Molina Artis Referring Physician: Molina Artis Performed By: Madison Silverio RCS
== END | disposition home or self-care (01) ==
LOC: CVS 12:30
PROVIDERS: PCP Family Medicine; Referring Provider Internal Medicine Cardiovascular Disease; Visit Provider Internal Medicine Cardiovascular Disease
DX: I25.10 Atherosclerotic heart disease of native coronary artery without angina pectoris (principal)
CPT/HCPCS: 93306; Q9957; A4216; C8929

== ENCOUNTER → 2022-01-14 | Outpatient (CLI) | payer OTHER, SELFPAY ==
[2022-01-14 15:57] LABS: Thyroid Stim Hormone (TSH) 2.37 uIU/mL (0.358-3.74)
[2022-01-14 16:08] LABS: Hemoglobin A1c 5.9 % (3.8-5.6)
[2022-01-14 16:20] LABS: Hepatitis C Antibody Non-Reactive (Nonreactive); Vitamin D,25 Hydroxy 17.4 ng/mL
[2022-01-15 08:05] LABS: PTHIN 30.2 pg/mL (18.4-80.1)
== END | disposition home or self-care (01) ==
LOC: MFPLAB 12:07
PROVIDERS: PCP Family Medicine; Visit Provider Family Medicine
DX: Z00.00 Encounter for general adult medical examination without abnormal findings (principal); E11.59 Type 2 diabetes mellitus with other circulatory complications; E11.22 Type 2 diabetes mellitus with diabetic chronic kidney disease; Z12.5 Encounter for screening for malignant neoplasm of prostate; N18.2 Chronic kidney disease, stage 2 (mild); E03.9 Hypothyroidism, unspecified
CPT/HCPCS: 36415; 82306; 83036; 83970; 84153; 84443; 86803; G0103

== ENCOUNTER → 2022-04-07 | Outpatient (CLI) | payer OTHER, SELFPAY ==
[2022-04-07 11:49] LABS: AST(SGOT) 29 U/L (15-37); Alanine Aminotransfer ALT/SGPT 36 U/L (16-61); Albumin, Serum 3.3 g/dL (3.2-5.0); Alkaline Phosphatase 62 U/L (45-117); Bilirubin, Direct 0.23 mg/dL (0.00-0.30); Cholesterol 92 mg/dL (200); Globulin 4.4 g/dL (2.2-4.2); High Density Lipoprotein 31 mg/dL; Protein, Total 7.7 g/dL (6.4-8.2); Triglycerides 98 mg/dL; Very Low Density Lipoprotein 20 mg/dL (5-40)
== END | disposition home or self-care (01) ==
LOC: LAB 10:56
PROVIDERS: PCP Family Medicine; Referring Provider Physician Assistant Medical; Visit Provider Physician Assistant Medical
DX: I25.10 Atherosclerotic heart disease of native coronary artery without angina pectoris (principal); E78.5 Hyperlipidemia, unspecified
CPT/HCPCS: 36415; 80061; 80076

== ENCOUNTER → 2022-04-17 | Outpatient (CLI) | payer OTHER, SELFPAY ==
[2022-04-17 12:13] LABS: Absolute Lymphocyte Count 1.26 X10^3/uL (0.83-4.51); Absolute Neutrophil Count 2.8 X10^3/uL (2.0-7.7); Basophil# 0.04 X10^3/uL; Basophil% 0.9 % (0-1); Eosinophil# 0.13 X10^3/uL; Eosinophils% 2.8 % (0-5); Hematocrit 47.7 % (40-54); Hemoglobin 15.7 g/dL (13.0-16.5); Lymphocyte # 1.26 X10^3/ul (0.83-4.51); Lymphocyte % 27.2 % (19-41); Mean Corp Hgb Conc 32.9 g/dL (32-36); Mean Corpuscular Hgb 31.7 pg (27.0-32.0); Mean Corpuscular Volume 96.2 fL (80-94); Mean Platelet Vol. 10.2 fl (6.2-12.0); Monocyte# 0.44 X10^3/uL; Monocyte% 9.5 % (0-10); NRBC Flagged by Analyzer 0 % (0-5); Neutrophil # 2.76 X10^3/uL (2.7-7.7); Neutrophil % 59.4 % (47-70); Platelet Count 112 K/mm3 (150-450); RBC Distribution Width CV 12.8 % (11.6-14.6); RBC Distribution Width SD 45.6 fl (35.1-43.9); Red Blood Count 4.96 M/mm3 (4.6-6.2); White Blood Count 4.6 K/mm3 (4.4-11.0)
[2022-04-17 12:30] LABS: ALB/GLOB Ratio 0.8 RATIO (0.9-2.4); AST(SGOT) 23 U/L (15-37); Alanine Aminotransfer ALT/SGPT 33 U/L (16-61); Albumin, Serum 3.3 g/dL (3.2-5.0); Alkaline Phosphatase 59 U/L (45-117); Anion Gap 6 (5-15); BUN 14 mg/dL (7-18); BUN/Creat Ratio 14.2 RATIO (10-20); Calcium,Total 8.8 mg/dL (8.5-10.1); Chloride 100 mmol/L (98-107); Creatinine, Serum 0.98 mg/dL (0.70-1.30); EST Glomerular Filtration Rate 83 mL/min (>60); Est Glom Filt Rate - Afr Amer 100 mL/min (>60); Globulin 3.9 g/dL (2.2-4.2); Glucose 140 mg/dL (74-106); Potassium 4.1 mmol/L (3.5-5.1); Protein, Total 7.2 g/dL (6.4-8.2); Sodium Level 135 mmol/L (136-145)
[2022-04-17 13:20] LABS: Microalbumin:Creatinine Ratio 753.4 mg/g CRE (<30 mg/g CRE)
== END | disposition home or self-care (01) ==
LOC: MFPLAB 10:44
PROVIDERS: PCP Family Medicine; Referring Provider Family Medicine; Visit Provider Family Medicine
DX: N18.2 Chronic kidney disease, stage 2 (mild) (principal); E11.22 Type 2 diabetes mellitus with diabetic chronic kidney disease
CPT/HCPCS: 36415; 80053; 82043; 82570; 85025

== ENCOUNTER → 2022-05-29 | Outpatient (CLI) | payer BC, SELFPAY ==
[2022-05-29 13:24] LABS: Microalbumin:Creatinine Ratio 435.8 mg/g CRE (<30 mg/g CRE)
[2022-05-29 14:02] LABS: ALB/GLOB Ratio 0.8 RATIO (0.9-2.4); AST(SGOT) 26 U/L (15-37); Alanine Aminotransfer ALT/SGPT 35 U/L (16-61); Albumin, Serum 3.4 g/dL (3.2-5.0); Alkaline Phosphatase 64 U/L (45-117); Anion Gap 7 (5-15); BUN 14 mg/dL (7-18); BUN/Creat Ratio 13.1 RATIO (10-20); Calcium,Total 9.1 mg/dL (8.5-10.1); Chloride 100 mmol/L (98-107); Creatinine, Serum 1.07 mg/dL (0.70-1.30); EST Glomerular Filtration Rate 75 mL/min (>60); Est Glom Filt Rate - Afr Amer 91 mL/min (>60); Globulin 4.1 g/dL (2.2-4.2); Glucose 138 mg/dL (74-106); Potassium 4.3 mmol/L (3.5-5.1); Protein, Total 7.5 g/dL (6.4-8.2); Sodium Level 137 mmol/L (136-145)
== END | disposition home or self-care (01) ==
LOC: MFPLAB 10:47
PROVIDERS: PCP Family Medicine; Referring Provider Family Medicine; Visit Provider Family Medicine
DX: N18.2 Chronic kidney disease, stage 2 (mild) (principal); E11.22 Type 2 diabetes mellitus with diabetic chronic kidney disease
CPT/HCPCS: 36415; 80053; 82043; 82570; 83036

== ENCOUNTER → 2022-11-27 | Outpatient (CLI) | payer BC, SELFPAY ==
[2022-11-27 15:41] LABS: Absolute Lymphocyte Count 1.36 X10^3/uL (0.83-4.51); Absolute Neutrophil Count 2.4 X10^3/uL (2.0-7.7); Basophil# 0.03 X10^3/uL; Basophil% 0.7 % (0-1); Eosinophil# 0.14 X10^3/uL; Eosinophils% 3.1 % (0-5); Hematocrit 49.4 % (40-54); Hemoglobin 16.4 g/dL (13.0-16.5); Lymphocyte # 1.36 X10^3/ul (0.83-4.51); Lymphocyte % 29.9 % (19-41); Mean Corp Hgb Conc 33.2 g/dL (32-36); Mean Corpuscular Hgb 31.6 pg (27.0-32.0); Mean Corpuscular Volume 95.2 fL (80-94); Mean Platelet Vol. 10.1 fl (6.2-12.0); Monocyte# 0.58 X10^3/uL; Monocyte% 12.7 % (0-10); NRBC Flagged by Analyzer 0 % (0-5); Neutrophil # 2.44 X10^3/uL (2.7-7.7); Neutrophil % 53.6 % (47-70); Platelet Count 144 K/mm3 (150-450); RBC Distribution Width CV 13.2 % (11.6-14.6); Red Blood Count 5.19 M/mm3 (4.6-6.2); White Blood Count 4.6 K/mm3 (4.4-11.0)
[2022-11-27 16:26] LABS: ALB/GLOB Ratio 0.7 RATIO (0.9-2.4); AST(SGOT) 34 U/L (15-37); Alanine Aminotransfer ALT/SGPT 40 U/L (16-61); Albumin, Serum 3.2 g/dL (3.2-5.0); Alkaline Phosphatase 73 U/L (45-117); Anion Gap 5 (5-15); BUN 19 mg/dL (7-18); BUN/Creat Ratio 17.6 RATIO (10-20); Calcium,Total 9.2 mg/dL (8.5-10.1); Chloride 104 mmol/L (98-107); Creatinine, Serum 1.08 mg/dL (0.70-1.30); EST Glomerular Filtration Rate 74 mL/min (>60); Est Glom Filt Rate - Afr Amer 90 mL/min (>60); Globulin 4.6 g/dL (2.2-4.2); Glucose 127 mg/dL (74-106); Potassium 4.2 mmol/L (3.5-5.1); Protein, Total 7.8 g/dL (6.4-8.2); Sodium Level 137 mmol/L (136-145)
[2022-11-27 17:08] LABS: Microalbumin:Creatinine Ratio 329.4 mg/g CRE (<30 mg/g CRE)
== END | disposition home or self-care (01) ==
LOC: MTLAB 11:27
PROVIDERS: PCP Family Medicine; Visit Provider Family Medicine
DX: E11.22 Type 2 diabetes mellitus with diabetic chronic kidney disease (principal); N18.2 Chronic kidney disease, stage 2 (mild)
CPT/HCPCS: 36415; 80053; 82043; 82570; 85025

== ENCOUNTER 2023-01-23 10:57 | Emergency (ER) | payer BC, SELFPAY ==
[2023-01-23 10:58] VITALS: BP 143/86; PULSE 81; RESP 16; TEMP 36.4; O2SAT 93; BMI 38.2
--- NOTE | 2023-01-23 11:29 | ED.VIS.CHEST ---
HPI History of Present Illness Chief Complaint: Chest Pain Informant: patient Narrative Narrative: 62-year-old male with a history of coronary artery disease presenting to the emergency room with left-sided chest pain. Patient states that 3 years ago he had similar pain those on the right side of his chest. At that time he received a stent to coronary artery. He has continued to smoke cigarettes although less than normal. Last night he developed the pain left side of his chest described as a pressure ache. He took a nitroglycerin around 2200 hrs. He has made it less so that he was able to go to sleep. Today he notes that it still present and seems worse. He notes a cough that is new and not significantly productive. No fever. Nothing seems to make the pain better or worse. He sees Dr. Hubbard for cardiology. He denies any recent travel surgery or DVT PE risk factors. [facility] Medical History Atherosclerotic heart disease of [place] coronary artery without angina pectoris Black stool Borderline diabetes Essential hypertension History of non-ST elevation myocardial infarction (NSTEMI) (01/22/20) Hyperglycemia Hyperlipidemia Ischemic cardiomyopathy Nicotine dependence Prediabetes Home Medications aspirin 81 mg chewable tablet 81 mg PO DAILYCM ##30 01/24/20 [Rx Last Taken Unknown] metformin 500 mg tablet 500 mg PO BID #60 tabs 02/17/20 [Rx Last Taken Unknown] pantoprazole 40 mg tablet,delayed release 40 mg PO DAILY #30 tabs 02/17/20 [Rx Last Taken Unknown] clopidogrel 75 mg tablet (Plavix) 75 mg PO DAILY #30 tabs 03/06/21 [Rx Last Taken Unknown] quinapril 20 mg tablet 20 mg PO DAILY 10/03/21 [History Last Taken Unknown] atorvastatin 40 mg tablet 40 mg PO QHS #30 tabs 03/07/22 [Rx Last Taken Unknown] carvedilol 12.5 mg tablet 12.5 mg PO BID #180 tabs 04/07/22 [Rx Last Taken Unknown] levothyroxine 50 mcg tablet 50 mcg PO DAILY #90 tabs 07/08/22 [Rx Last Taken Unknown] amlodipine 10 mg tablet 10 mg PO DAILY #90 tabs 09/23/22 [Rx Last Taken Unknown] Allergy/AdvReac Type Severity Reaction Status Date / Time No Known Allergies Allergy Verified 01/23/23 11:00 Surgical History History of coronary artery stent placement (01/23/20) Social History Smoking Status: Light Smoker (<10/day) alcohol intake: never substance use type: does not use caffeine: Yes Type: coffee Number of servings: 1 ROS ROS ED Constitutional Constitutional ED: Denies chills or weight loss Eyes Eyes: Denies change in vision or diplopia ENT ENT ED: Denies ear pain, rhinorrhea or sore throat Cardiovascular Cardiovascular: Reports as per HPI and chest pain; Denies orthopnea, palpitations or racing heartbeat Respiratory/Chest Respiratory/Chest: Reports cough; Denies dyspnea or orthopnea Gastrointestinal Gastrointestinal: Denies abdominal pain, diarrhea, nausea or vomiting Genitourinary Genitourinary ED: Denies dysuria, hematuria or urinary frequency Musculoskeletal Musculoskeletal: Denies arthralgias or myalgias Integumentary Denies abscess or rash Neurologic Neurologic: Denies headache(s) or weakness Psychiatric Psychiatric: Denies anxiety, depression, suicidal ideation or suicidal thoughts Endocrine Endocrinology: Denies polydipsia, polyphagia or polyuria Allergic/Immunologic Allergic/Immunologic ED: Denies mouth swelling, tongue swelling or urticaria EXAM Physical Exam Const Vital Signs: 01/23/23 10:58 01/23/23 11:20 Temperature 97.6 F L Temperature Source Temporal Pulse Rate 81 Respiratory Rate 16 Respiratory Effort Normal Non-Labored Blood Pressure 143/86 H Blood Pressure Mean 105 Pulse Ox 93 Positive well nourished, well developed and obese General Appearance ED: well developed Nutritional Appearance: obese HEENT Reports normocephalic, head/scalp atraumatic and moist mucous membranes Eyes PERRL and EOMs intact bilaterally Neck no lymphadenopathy, supple and no JVD Resp normal respiratory effort and clear to auscultation bilaterally Cardio regular rate, regular rhythm and no murmurs GI normal to inspection, nondistended, normoactive bowel sounds and non-tender Palpation: soft Back/Spine no CVA tenderness and normal ROM Extremity normal to inspection General Extremety ED: Negative for edema General Extremity: Negative for edema Neuro oriented x3 and CN's II-XII intact bilaterally Sensorium / Orientation: alert Motor Exam: strength 5/5 throughout Psych mental status grossly normal Mood & Affect: Negative for depressed or tearful Skin no rashes or lesions noted and no wounds Heart Score History: Moderately Suspicious ECG: Normal Age: >/= 65 years Risk Factors: >/= 3 Risk Factors or History of CAD Troponin: </= Normal Limit Score: 5 MDM MDM MDM Narrative Medical decision making narrative: With hisMy interpretation of the chest x-ray is no acute process. 2 sets of cardiac enzymes are in the normal range. D-dimer is normal. White count 4.8 with hemoglobin 16.7. Creatinine normal at 1. Patient has remained in a sinus rhythm on the monitor. 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 Given that symptoms have been present for at least 18 hours constantly and he has 2 sets of negative cardiac enzymes that is unlikely to be cardiac in nature. Patient will return if worsening and follow-up with cardiology and/or primary care. He is to do his best to quit smoking. Lab Data Labs: Laboratory Results - last 24 hr 01/23/23 01/23/23 11:05 13:25 WBC 4.8 RBC 5.33 Hgb 16.7 H Hct 49.8 MCV 93.4 MCH 31.3 MCHC 33.5 RDW Std Deviation 44.4 H RDW Coeff of Benitez 13.1 Plt Count 98 L MPV 9.7 Immature Gran % (Auto) 0.200 Neut % (Auto) 54.6 Lymph % (Auto) 29.1 Davidson % (Auto) 12.4 H Eos % (Auto) 2.9 Baso % (Auto) 0.8 Absolute Neuts (auto) 2.6 Absolute Lymphs (auto) 1.38 Nucleated RBC % 0 Differential Comment SCANNED D-Dimer Quant (PE/DVT) 0.33 Sodium 135 L Potassium 4.2 Chloride 102 Carbon Dioxide 31.0 Anion Gap 2 L BUN 13 Creatinine 1.00 Estim Creat Clear Calc 68.33 Est GFR (MDRD) Af Amer 98 Est GFR (MDRD) Non-Af 81 BUN/Creatinine Ratio 13.0 Glucose 139 H Calcium 9.2 Troponin I High Sens 17 13 Radiography Diagnostic Testing: Clinical Impression(s) from Imaging Studies Chest X-Ray 01/23/23 12:00 IMPRESSION: Mild increased markings at the right lung base suggestive of atelectasis. Electronically Signed: Moe Oconnor MD at 12:18 EDT , EKG Initial EKG: Attestation: I personally reviewed and interpreted this EKG as follows: Comments: Normal sinus rhythm with a ventricular rate of 76 bpm. No concerning features of ACS noted Differential Diagnosis Chest pain/SOB: pulmonary embolism, ACS, pneumothorax, pneumonia, aortic dissection, CHF and COPD Discharge Plan Triage Chief Complaint: Chest Pain ED Provider: Juancho Carlisle Dx/Rx/DC Orders Clinical Impression: Nicotine dependence, Essential hypertension, Hyperlipidemia, Chest pain Instructions: ED Chest Pain, Uncertain Cause Prescriptions: No Action pantoprazole 40 mg tablet,delayed release (DR/EC) 40 mg PO DAILY Qty: 30 11RF metformin 500 mg tablet 500 mg PO BID Qty: 60 3RF quinapril 20 mg tablet 20 mg PO DAILY Patient Comments: TAKE 1 TABLET BY MOUTH ONCE DAILY WITH SUPPER carvedilol 12.5 mg tablet 12.5 mg PO BID Qty: 180 3RF aspirin 81 MG tablet,chewable 81 mg PO DAILYCM Qty: 30 0RF clopidogrel [Plavix] 75 mg tablet 75 mg PO DAILY Qty: 30 11RF atorvastatin 40 mg tablet 40 mg PO QHS Qty: 30 11RF levothyroxine 50 mcg tablet 50 mcg PO DAILY Qty: 90 4RF amlodipine 10 mg tablet 10 mg PO DAILY Qty: 90 3RF Primary Care Provider: Tk Dowell Referrals: Tk Dowell MD [Primary Care Provider] - Keep Monika appointment Pavel Hubbard MD [Med Staff - Active Staff] - Keep Monika appointment Activity Restrictions/Additional Instructions: If your symptoms are worsening or you have any concerns please return to the emergency department. Disposition Disposition: Home, Self Care
--- NOTE | 2023-01-23 11:45 | EKG12_ITS ---
Test Reason : CP Blood Pressure : / mmHG Vent. Rate : 076 BPM Atrial Rate : 076 BPM P-R Int : 120 ms QRS Dur : 110 ms QT Int : 384 ms P-R-T Axes : 000 249 082 degrees QTc Int : 432 ms Normal sinus rhythm Pulmonary disease pattern Right bundle branch block Abnormal ECG Confirmed by RACHAEL JACKMAN, PRITI ([id number]), editor school photograph DEMETRI TEAGUE ([id number]) on 01/27/2023 10:23:58 AM Referred By: Confirmed By:OLIVERIO CANO MD
--- NOTE | 2023-01-23 12:00 | RAD_ITS ---
STUDY: X-RAY CHEST REASON FOR EXAM: Male, 62 years old. Chest pain TECHNIQUE: Single AP portable view of the chest. COMPARISON: Comparison is made with prior study dated March 30, 2020. FINDINGS: EKG electrodes are seen. Mild increased markings at the right lung base suggests right basilar atelectasis. There is no demonstrated pleural abnormality. Normal size heart. Normal mediastinum and domenic. Normal visualized pulmonary arteries. There is atherosclerotic calcification of the aortic arch with tortuosity. There are diffuse degenerative changes of the visualized thoracic spine. Normal visualized ribs, clavicles, and shoulders. There is no demonstrated abnormality of the visualized soft tissue structures of the upper abdomen. RAD/Chest 1 View (Portable) IMPRESSION: Mild increased markings at the right lung base suggestive of atelectasis. Electronically Signed: Moe Oconnor MD at 12:18 EDT ,
[2023-01-23 12:04] LABS: Absolute Lymphocyte Count 1.38 X10^3/uL (0.83-4.51); Absolute Neutrophil Count 2.6 X10^3/uL (2.0-7.7); Basophil# 0.04 X10^3/uL; Basophil% 0.8 % (0-1); Eosinophil# 0.14 X10^3/uL; Eosinophils% 2.9 % (0-5); Hematocrit 49.8 % (40-54); Hemoglobin 16.7 g/dL (13.0-16.5); Lymphocyte # 1.38 X10^3/ul (0.83-4.51); Lymphocyte % 29.1 % (19-41); Mean Corp Hgb Conc 33.5 g/dL (32-36); Mean Corpuscular Hgb 31.3 pg (27.0-32.0); Mean Corpuscular Volume 93.4 fL (80-94); Mean Platelet Vol. 9.7 fl (6.2-12.0); Monocyte# 0.59 X10^3/uL; Monocyte% 12.4 % (0-10); NRBC Flagged by Analyzer 0 % (0-5); Neutrophil # 2.59 X10^3/uL (2.7-7.7); Neutrophil % 54.6 % (47-70); POSITIVE COUNT YES; Platelet Count 98 K/mm3 (150-450); RBC Distribution Width CV 13.1 % (11.6-14.6); RBC Distribution Width SD 44.4 fl (35.1-43.9); Red Blood Count 5.33 M/mm3 (4.6-6.2); White Blood Count 4.8 K/mm3 (4.4-11.0)
[2023-01-23 12:05] LABS: Differential Indicated SCAN CRITERIA MET
[2023-01-23 12:14] LABS: D-Dimer Quantitative (DVT/PE) 0.33 FEU/ug/m (0.27-0.49)
[2023-01-23 12:15] LABS: Anion Gap 2 (5-15); BUN 13 mg/dL (7-18); Calcium,Total 9.2 mg/dL (8.5-10.1); Chloride 102 mmol/L (98-107); EST Glomerular Filtration Rate 81 mL/min (>60); Est Glom Filt Rate - Afr Amer 98 mL/min (>60); Estimated Creatinine Clearance 68.33 ml/min; Glucose 139 mg/dL (74-106); Potassium 4.2 mmol/L (3.5-5.1); Sodium Level 135 mmol/L (136-145); Troponin-I HS (w/2H Reflex) 17 pg/mL (3.0-78.0)
[2023-01-23 12:30] LABS: Differential Comment SCANNED
[2023-01-23 13:54] LABS: Reflex Troponin-HS? (from REC) Y
[2023-01-23 13:55] LABS: Troponin-I HS 13 pg/mL (3.0-78.0)
[2023-01-23 15:13] VITALS: BP 142/76; PULSE 88; RESP 16
== END 2023-01-23 15:14 | disposition home or self-care (01) ==
PROVIDERS: Emergency Provider Emergency Medicine; PCP Family Medicine; Visit Provider Emergency Medicine
DX: R07.89 Other chest pain (principal); Z95.5 Presence of coronary angioplasty implant and graft; I25.10 Atherosclerotic heart disease of native coronary artery without angina pectoris; F17.210 Nicotine dependence, cigarettes, uncomplicated; E78.5 Hyperlipidemia, unspecified; I10 Essential (primary) hypertension; E66.9 Obesity, unspecified
CPT/HCPCS: 71045; 80048; 84484; 85025; 85379; 93005; 99283; A4216

== ENCOUNTER → 2023-08-04 | Outpatient (CLI) | payer BC, SELFPAY ==
--- NOTE | 2023-08-04 14:30 | RAD_ITS ---
STUDY: X-RAY CHEST REASON FOR EXAM: Male, 62 years old. Increasing shortness of breath. TECHNIQUE: Frontal and lateral views of the chest. COMPARISON: 01/23/2023 FINDINGS: Stable hyperinflation with mild diffuse interstitial prominence in the bases. Scattered healed parenchymal granulomatous calcifications unchanged. There is no demonstrated pleural abnormality. Cardiomegaly unchanged. Normal mediastinum and domenic. Stable prominent central pulmonary arteries. Aortic tortuosity with calcification unchanged. Thoracic osteopenia with diffuse moderate thoracic spondylosis. Normal visualized ribs, clavicles, and shoulders. No abnormality of the visualized soft tissue structures of the upper abdomen. RAD/Chest PA and Lateral IMPRESSION: Stable cardiomegaly with hyperinflation and no acute or active cardiopulmonary disease. Electronically Signed: Carlton Gabriel MD at 15:52 EDT ,
[2023-08-04 17:41] LABS: Absolute Lymphocyte Count 1.87 X10^3/uL (0.83-4.51); Absolute Neutrophil Count 2.9 X10^3/uL (2.0-7.7); Basophil# 0.06 X10^3/uL; Basophil% 1.1 % (0-1); Eosinophil# 0.17 X10^3/uL; Hematocrit 49.9 % (40-54); Hemoglobin 16.7 g/dL (13.0-16.5); Lymphocyte # 1.87 X10^3/ul (0.83-4.51); Lymphocyte % 33.3 % (19-41); Mean Corp Hgb Conc 33.5 g/dL (32-36); Mean Corpuscular Hgb 31.7 pg (27.0-32.0); Mean Corpuscular Volume 94.7 fL (80-94); Mean Platelet Vol. 9.2 fl (6.2-12.0); Monocyte# 0.57 X10^3/uL; Monocyte% 10.1 % (0-10); NRBC Flagged by Analyzer 0 % (0-5); Neutrophil # 2.94 X10^3/uL (2.7-7.7); Neutrophil % 52.3 % (47-70); Platelet Count 116 K/mm3 (150-450); RBC Distribution Width CV 12.6 % (11.6-14.6); RBC Distribution Width SD 43.6 fl (35.1-43.9); Red Blood Count 5.27 M/mm3 (4.6-6.2); White Blood Count 5.6 K/mm3 (4.4-11.0)
[2023-08-04 18:06] LABS: ALB/GLOB Ratio 0.8 RATIO (0.9-2.4); AST(SGOT) 24 U/L (15-37); Alanine Aminotransfer ALT/SGPT 30 U/L (16-61); Albumin, Serum 3.5 g/dL (3.2-5.0); Alkaline Phosphatase 69 U/L (45-117); Anion Gap 6 (5-15); BUN 15 mg/dL (7-18); BUN/Creat Ratio 14.2 RATIO (10-20); Calcium,Total 9.2 mg/dL (8.5-10.1); Chloride 102 mmol/L (98-107); Creatinine, Serum 1.06 mg/dL (0.70-1.30); EST Glomerular Filtration Rate 76 mL/min (>60); Est Glom Filt Rate - Afr Amer 92 mL/min (>60); Globulin 4.6 g/dL (2.2-4.2); Glucose 135 mg/dL (74-106); Protein, Total 8.1 g/dL (6.4-8.2); Sodium Level 137 mmol/L (136-145)
[2023-08-04 18:09] LABS: Hemoglobin A1c 6.9 % (3.8-5.6)
[2023-08-04 18:25] LABS: Microalbumin:Creatinine Ratio 1107.5 mg/g CRE (<30 mg/g CRE)
== END | disposition home or self-care (01) ==
PROVIDERS: PCP Family Medicine; Referring Provider Family Medicine; Visit Provider Family Medicine
DX: E11.59 Type 2 diabetes mellitus with other circulatory complications (principal); R06.02 Shortness of breath
CPT/HCPCS: 36415; 71046; 80053; 82043; 82570; 83036; 85025

== ENCOUNTER 2023-11-04 10:22 | Inpatient (IN) | payer OTHER, SELFPAY ==
[2023-11-04] VITALS (13 sets, daily range): BP systolic 109–161; BP diastolic 73–97; PULSE 59–96; RESP 15–24; TEMP 35.8–36.7; O2SAT 87–98; BMI 41.5; BMI 38.8
--- NOTE | 2023-11-04 10:27 | ED.VIS.CHEST ---
HPI History of Present Illness Chief Complaint: Chest Pain [facility] Medical History Atherosclerotic heart disease of [place] coronary artery without angina pectoris Black stool Borderline diabetes Essential hypertension History of non-ST elevation myocardial infarction (NSTEMI) (01/22/20) Hyperglycemia Hyperlipidemia Ischemic cardiomyopathy Nicotine dependence Prediabetes Home Medications ?Medication ?Instructions ?Recorded ?Last Taken ?Type aspirin 81 mg chewable tablet 81 mg PO DAILYCM ##30 01/24/20 11/04/23 Rx metformin 500 mg tablet 500 mg PO BID #60 tabs 02/17/20 11/04/23 Rx pantoprazole 40 mg tablet,delayed 40 mg PO DAILY #30 tabs 02/17/20 Unknown Rx release clopidogrel 75 mg tablet (Plavix) 75 mg PO DAILY #30 tabs 03/06/21 Unknown Rx quinapril 20 mg tablet 20 mg PO QPM 10/03/21 Unknown History cholecalciferol (vitamin D3) 25 25 mcg PO DAILY 02/10/23 Unknown History mcg (1,000 unit) capsule ramipril 10 mg capsule 10 mg PO DAILY 02/10/23 Unknown History atorvastatin 40 mg tablet See Rx Instructions .Route 04/28/23 Unknown Rx .COMPLEX #90 tabs carvedilol 12.5 mg tablet 12.5 mg PO BID #180 tabs 04/30/23 Unknown Rx levothyroxine 50 mcg tablet 50 mcg PO DAILY #90 tabs 07/22/23 Unknown Rx amlodipine 10 mg tablet 10 mg PO DAILY #90 tabs 08/17/23 Unknown Rx Allergy/AdvReac Type Severity Reaction Status Date / Time No Known Allergies Allergy Verified 11/04/23 11:40 Surgical History History of coronary artery stent placement (01/23/20) Social History Smoking Status: Light Smoker (<10/day) alcohol intake: never substance use type: does not use caffeine: Yes Type: coffee Number of servings: 1 EXAM Physical Exam Const Vital Signs: 11/04/23 10:22 11/04/23 10:27 11/04/23 11:15 Temperature 96.5 F L Temperature Source Temporal Pulse Rate 59 L Respiratory Rate 22 H Respiratory Effort Short of Breath Blood Pressure 110/73 Blood Pressure Mean 85 Pulse Ox 92 Oxygen Delivery Method Room Air Room Air Oxygen Flow Rate (L/min) 11/04/23 11:22 11/04/23 12:00 11/04/23 12:29 Temperature Temperature Source Pulse Rate 71 81 Respiratory Rate 15 20 H Respiratory Effort Blood Pressure 109/92 H 161/86 H Blood Pressure Mean 97 111 Pulse Ox 87 98 Oxygen Delivery Method Room Air Nasal Cannula Nasal Cannula Oxygen Flow Rate (L/min) 2 11/04/23 13:00 11/04/23 13:45 11/04/23 13:53 Temperature 98 F Temperature Source Pulse Rate 80 88 96 Respiratory Rate 18 18 18 Respiratory Effort Blood Pressure 144/86 H 134/83 H 134/83 H Blood Pressure Mean 105 100 100 Pulse Ox 93 92 98 Oxygen Delivery Method Nasal Cannula Nasal Cannula Oxygen Flow Rate (L/min) 2 MDM MDM MDM Narrative Medical decision making narrative: HISTORY OF PRESENT ILLNESS: 62-year-old male presents with chest pain. He states This began at 9 AM, approximately 1/2 hours prior to arrival. States he took 1 nitro prior to arrival. He notes pressure-like chest pain that is midsternal. No shortness of breath. Denies cough fever chills. Denies lower extremity edema, orthopnea. Denies any bleeding diathesis. The patient denies recent surgery in the last 4 weeks or immobilization in the last 3 days, denies previous diagnosis of DVT or PE, hemoptysis, unilateral leg swelling or malignancy with treatment the last 6 months or palliative. No estrogen use noted. Notes he smokes approxi-4 cigarettes a day. Notes he is trying to quit. Denies history of COPD. He also endorses abdominal pain. He notes he has a chronic hernia but states as he was being evaluated for his chest pain he noted worsening abdominal pain as well. Has any ripping or tearing sensation. Denies any family or personal history of connective tissue disorders. REVIEW OF SYSTEMS: Pertinent positives: Chest pain, abdominal pain Pertinent negatives: Shortness of breath, vomiting PHYSICAL EXAM: Nursing triage notes reviewed, Vital signs reviewed Constitutional: please see mdm HENT: MMM Eyes: Pupils equal round and reactive to light, Extraocular muscles intact Neck: No stridor, no JVD, full neck ROM Lungs: Clear to auscultation, No wheezing or rales. No increased work of breathing, no conversational dyspnea, no accessory muscle use, no nasal flaring. No respiratory distress noted Heart: Regular rate and rhythm, No murmurs, No rubs and No gallops, 2+ distal pulses (radial, femoral, posterior tibial) in all extremities Abdomen: Soft, there is no tenderness, rigidity, rebound or guarding, no obvious peritoneal signs, no palpable pulsatile abdominal masses, no auscultated abdominal bruit : No CVAT Extremities: No edema Neuro: No focal neurological deficits, cranial nerves II through XII intact, 5/5 strength in all extremities. Intact sensation to light touch in all extremities, 2+ reflexes bilateral patella tendons. Normal gait. No ataxia. Skin: No rash or lesions noted MEDICAL DECISION MAKING: Chief Complaint: Chest pain External records reviewed: Prior outpatient records reviewed: Last cardiology visit in February 2023, patient underwent a drug-eluting stent 2019. Imaging reviewed: Last echocardiogram from 2021 shows ejection fraction 50%, last myocardial perfusion stress test was in 2019 Factors affecting care: Ischemic cardiomyopathy, CAD status post stents hyperlipidemia, hypertension, type 2 diabetes, Social determinants of health: Tobacco abuse History obtained from others: none Consults: Internal medicine (Dr. Katz) MDM Narrative: Patient was hemodynamically stable, initially patient appeared garg, diaphoretic. No focal cardiopulmonary normalities. No lower extremity edema. Abdomen was distended with an obvious umbilical hernia that was difficult to reduce. (Patient endorses this has been chronic for the last 2 years.) I considered the following differential diagnosis: ACS, arrhythmia, PE, aortic dissection, incarcerated hernia, small bowel obstruction, pneumonia, CHF exacerbation, anemia, electrolyte disturbance I obtained a broad lab and imaging workup to further elucidate etiology patient complaint. He was initially treated nitroglycerin and aspirin. He was then treated with Zofran and morphine for abdominal pain complaint. He was given 1 L normal saline. ALL IMAGES (IF OBTAINED) HAVE BEEN PERSONALLY REVIEWED AND INTERPRETED BY MYSELF. EKG with normal sinus rhythm, right axis deviation, right bundle branch block, no obvious STEMI similar morphology to prior EKG from January 2023 CBC without leukocytosis, severe anemia, no thrombocytopenia. Chest x-ray was read reviewed myself shows no evidence of pneumothorax or pleural effusion Repeat EKG after approximate 20 minutes shows sinus bradycardia at a rate of 57, right axis deviation, right bundle branch block, no STEMI BMP without evidence of significant electrolyte abnormalities, no anion gap, no acute kidney injury. High-sensitivity troponin is negative, no evidence of myocardial ischemia lactate elevated consistent with endorgan hypoperfusion Will send repeat Sent blood and urine cultures which are pending Urine is pending CT of the chest shows no evidence of PE or pneumonia CT scan of the abdomen pelvis shows fat-containing umbilical hernia, noted pancreatic mass, enteritis The synthesis of the patient's history, physical exam are concerning for multiple etiologies. During the patient's ED stay after morphine he did develop a new onset oxygen requirement of 2 and half liters. Given this a CTA was pursued to rule out PE or other intrathoracic pathology. CTA was negative for acute intrathoracic pathology. Given the patient abdominal pain elevated lactate also concerned about a strangulated hernia. CT scan of the abdomen pelvis was pursued. This did not show evidence of a strangulated hernia but did show evidence of enteritis and a new pancreatic mass. Given the patient's high risk in terms of CAD, chest pain, hypoxia, abdominal pain elevated lactate he will require hospitalization for further testing and evaluation. Prior to transfer to the floor I did obtain blood cultures, urine culture, since repeat lactate. Patient was updated on his care and care plan. He agreed with admission The patient and/or family, caregivers express understanding. The patient and/or family, caregivers agrees with the plan. Shared decision making: I will have a discussion with the patient and or visitors regarding risk/benefits of further testing or admission. They will be made aware of of the risk/benefits inherent in this decision they will be given the opportunity to voice understanding. Total critical care time today provided was at least 35 minutes. This excludes separately billable procedures. Critical care time (if documented) is secondary to the patient having high probability of clinically significant/life threatening deterioration in the patient's condition which required my urgent intervention. Impression: 1. Chest pain 2. Abdominal pain 3. Hypoxia 4. Elevated lactate 5. Enteritis 6. Pancreatic mass Dispo: Admit to PCU, case discussed with Dr. Katz. This note was generated with [employer] dictation software. It may contain incorrect words, spelling, and punctuation that were not noted in review of the chart prior to signing. Lab Data Labs: Laboratory Results - last 24 hr 11/04/23 11/04/23 11/04/23 10:31 12:05 12:46 WBC 8.0 RBC 5.27 Hgb 16.3 Hct 49.4 MCV 93.7 MCH 30.9 MCHC 33.0 RDW Std Deviation 43.7 RDW Coeff of [place] 12.7 Plt Count 163 MPV 9.2 Immature Gran % (Auto) 0.200 Neut % (Auto) 44.4 L Lymph % (Auto) 41.1 H [place] % (Auto) 11.1 H Eos % (Auto) 2.2 Baso % (Auto) 1.0 Absolute Neuts (auto) 3.6 Absolute Lymphs (auto) 3.30 Nucleated RBC % 0 Sodium 136 Potassium 4.3 Chloride 104 Carbon Dioxide 23.0 Anion Gap 9 BUN 18 Creatinine 1.13 Estim Creat Clear Calc 80.88 Est GFR (MDRD) Af Amer 85 Est GFR (MDRD) Non-Af 70 BUN/Creatinine Ratio 15.9 Glucose 206 H Lactic Acid 3.0 H* Calcium 9.0 Troponin I High Sens 14 12 Radiography Diagnostic Testing: Clinical Impression(s) from Imaging Studies Chest X-Ray 11/04/23 10:30 IMPRESSION: Stable chest with no acute or emergent finding. Electronically Signed: Carlton Gabriel MD at 10:46 EDT , Abdomen/Pelvis CT 11/04/23 11:45 IMPRESSION: 1. Nonspecific fluid-filled and slightly prominent small bowel loops on the right side of the abdomen could be due to ileus or enteritis. Early small bowel obstruction is less likely. Follow-up exam might be helpful. 2. Left upper abdominal mass as described above could be due to aneurysm or less likely adrenal mass. Further evaluation with nonemergent multiphase CT scan of the upper abdomen or MRI is recommended. 3. Otherwise no focal acute inflammatory process. 4. Umbilical hernia containing fat. 5. Slightly prominent prostate. Electronically Signed: Dipak Tierney MD at 13:06 EDT , Chest CTA 11/04/23 11:45 IMPRESSION: 1. No evidence of pulmonary embolism. 2. No acute pulmonary infiltrate or pleural effusions. 3. Left upper lobe mass described in the CT scan of the abdomen and pelvis report from the same day. Electronically Signed: Dipak Tierney MD at 12:51 EDT , Discharge Plan Triage Chief Complaint: Chest Pain ED Provider: Jeovanny Foreman Dx/Rx/DC Orders Prescriptions: No Action pantoprazole 40 mg tablet,delayed release (DR/EC) 40 mg PO DAILY Qty: 30 11RF metformin 500 mg tablet 500 mg PO BID Qty: 60 3RF quinapril 20 mg tablet 20 mg PO QPM Patient Comments: TAKE 1 TABLET BY MOUTH ONCE DAILY WITH SUPPER cholecalciferol (vitamin D3) 25 mcg (1,000 unit) capsule 25 mcg PO DAILY ramipril 10 mg capsule 10 mg PO DAILY aspirin 81 MG tablet,chewable 81 mg PO DAILYCM Qty: 30 0RF clopidogrel [Plavix] 75 mg tablet 75 mg PO DAILY Qty: 30 11RF atorvastatin 40 mg tablet See Rx Instructions .ROUTE .COMPLEX Qty: 90 3RF Dose Instruction: TAKE 1 TABLET BY MOUTH AT BEDTIME Rx Instructions: TAKE 1 TABLET BY MOUTH AT BEDTIME carvedilol 12.5 mg tablet 12.5 mg PO BID Qty: 180 3RF levothyroxine 50 mcg tablet 50 mcg PO DAILY Qty: 90 4RF amlodipine 10 mg tablet 10 mg PO DAILY Qty: 90 3RF Primary Care Provider: Tk Dowell Referrals: Tk Dowell MD [Primary Care Provider] - Print Language: Polish
--- NOTE | 2023-11-04 10:30 | RAD_ITS ---
STUDY: X-RAY CHEST REASON FOR EXAM: Male, 62 years old. Chest pain. TECHNIQUE: Single frontal view of the chest. COMPARISON: August 04, 2023 FINDINGS: Stable hyperinflation. Scarring at both bases, unchanged. Stable healed granulomatous calcifications. There is no demonstrated pleural abnormality. Mild cardiomegaly unchanged. Normal mediastinum and domenic. Normal visualized pulmonary arteries. Stable aortic tortuosity. No abnormality of the visualized soft tissue structures of the upper abdomen. RAD/Chest 1 View (Portable) IMPRESSION: Stable chest with no acute or emergent finding. Electronically Signed: Carlton Gabriel MD at 10:46 EDT ,
--- NOTE | 2023-11-04 10:30 | EKG12_ITS ---
Test Reason : CP Blood Pressure : / mmHG Vent. Rate : 063 BPM Atrial Rate : 063 BPM P-R Int : 110 ms QRS Dur : 118 ms QT Int : 422 ms P-R-T Axes : 000 204 097 degrees QTc Int : 431 ms Sinus rhythm with short IN Pulmonary disease pattern Right bundle branch block Abnormal ECG Confirmed by MEENU JACKMAN, KALLI ([id number]), manager editorial FRANTZ SMALLS ([id number]) on 11/06/2023 9:26:05 AM Referred By: LUCI/KIERSTEN Confirmed By:KALLI CORRIGAN MD
[2023-11-04 10:38] LABS: Absolute Neutrophil Count 3.6 X10^3/uL (2.0-7.7); Basophil# 0.08 X10^3/uL; Eosinophil# 0.18 X10^3/uL; Eosinophils% 2.2 % (0-5); Hematocrit 49.4 % (40-54); Hemoglobin 16.3 g/dL (13.0-16.5); Lymphocyte % 41.1 % (19-41); Mean Corpuscular Hgb 30.9 pg (27.0-32.0); Mean Corpuscular Volume 93.7 fL (80-94); Mean Platelet Vol. 9.2 fl (6.2-12.0); Monocyte# 0.89 X10^3/uL; Monocyte% 11.1 % (0-10); NRBC Flagged by Analyzer 0 % (0-5); Neutrophil # 3.55 X10^3/uL (2.7-7.7); Neutrophil % 44.4 % (47-70); Platelet Count 163 K/mm3 (150-450); RBC Distribution Width CV 12.7 % (11.6-14.6); RBC Distribution Width SD 43.7 fl (35.1-43.9); Red Blood Count 5.27 M/mm3 (4.6-6.2)
[2023-11-04 11:03] LABS: Anion Gap 9 (5-15); BUN 18 mg/dL (7-18); BUN/Creat Ratio 15.9 RATIO (10-20); Chloride 104 mmol/L (98-107); Creatinine, Serum 1.13 mg/dL (0.70-1.30); EST Glomerular Filtration Rate 70 mL/min (>60); Est Glom Filt Rate - Afr Amer 85 mL/min (>60); Estimated Creatinine Clearance 80.88 ml/min; Glucose 206 mg/dL (74-106); Potassium 4.3 mmol/L (3.5-5.1); Sodium Level 136 mmol/L (136-145); Troponin-I HS (w/2H Reflex) 14 pg/mL (3.0-78.0)
[2023-11-04] MEDS: Aspirin 81 MG TAB.CHEW 324 MG PO (11:15)
--- NOTE | 2023-11-04 11:45 | CT_ITS ---
STUDY: CT ABDOMEN AND PELVIS WITH CONTRAST REASON FOR EXAM: Male, 62 years old. Abdominal pain, hernia r/o strangulation RADIATION DOSAGE (If Supplied By Facility): CTDIvol = ( 19.48 ) mGy, DLP = ( 2053.00 ) mGycm TECHNIQUE: IV 100mL Isovue-370 was administered. Transaxial images were obtained from the dome of the diaphragm to the symphysis pubis. Multiplanar coronal and sagittal images were reformatted. The protocol utilizes one or more of the following dose reduction techniques: automated exposure control, adjustment of mA and/or kV according to patient size,and/or use of iterative reconstruction technique. COMPARISON: No relevant prior comparison study available FINDINGS: The visualized lung bases are unremarkable. The visualized portions of the heart are within normal limits. Coronary calcifications. Tiny cysts in the right lobe of liver. Mild hepatic steatosis. Somewhat irregular liver contour which may reflect early cirrhosis. There are surgical clips in the gallbladder fossa consistent with a prior cholecystectomy. Normal spleen. Normal pancreas. Patchy prominent left adrenal gland. 5 mm nodule in the right adrenal gland could be due to adenoma or lipoma. Well-defined 3.7 cm mass between the upper pole of the left kidney, left adrenal gland and the splenic vein. There is focal enhancement peripherally. It could represent exophytic left adrenal mass. Splenic artery aneurysm or possibly left renal artery aneurysm cannot be entirely excluded. There is a small hiatal hernia. Somewhat distended stomach. Nonspecific fluid-filled and mildly dilated bowel loops on the right side of the abdomen. No definite bowel obstruction. Mild thickening of the transverse colon likely due to underdistention. No evidence of acute diverticulitis. The appendix is visualized and appears normal. There is diffuse atherosclerotic calcification of the abdominal aorta, without a demonstrated aneurysm. No retroperitoneal adenopathy. Bilateral renal cysts, the largest is in the left kidney measuring about 3.5 cm appears to be simple and no further follow-up exam is needed. No evidence of hydronephrosis. Normal urinary bladder. Slightly prominent prostate. Umbilical hernia containing fat. There are degenerative changes of the visualized lumbar spine. CT/Abdomen/Pelvis W IV Cont ONLY IMPRESSION: 1. Nonspecific fluid-filled and slightly prominent small bowel loops on the right side of the abdomen could be due to ileus or enteritis. Early small bowel obstruction is less likely. Follow-up exam might be helpful. 2. Left upper abdominal mass as described above could be due to aneurysm or less likely adrenal mass. Further evaluation with nonemergent multiphase CT scan of the upper abdomen or MRI is recommended. 3. Otherwise no focal acute inflammatory process. 4. Umbilical hernia containing fat. 5. Slightly prominent prostate. Electronically Signed: Dipak Tierney MD at 13:06 EDT ,
--- NOTE | 2023-11-04 11:45 | CT_ITS ---
STUDY: CTA CHEST REASON FOR EXAM: Male, 62 years old. SOB, hypoxia, r/o PE RADIATION DOSAGE (If Supplied By Facility): CTDIvol = ( 19.48 ) mGy, DLP = ( 2053.00 ) mGycm TECHNIQUE: The examination was performed with the intravenous administration of IV 100mL Isovue-370. Post-processing of the angiographic images was performed, with multiplanar reformation and 3D reconstruction. The protocol utilizes one or more of the following dose reduction techniques: automated exposure control, adjustment of mA and/or kV according to patient size,and/or use of iterative reconstruction technique. COMPARISON: No relevant prior comparison study available FINDINGS: Normal enhancement of the main pulmonary artery and right and left pulmonary arteries. Normal enhancement of the bilateral peripheral pulmonary arteries. There is no demonstrated pulmonary embolism. Atherosclerotic calcifications of the aortic arch without evidence of aneurysm. There is no demonstrated definite aortic dissection. The aorta is suboptimally enhanced. Normal heart and pericardium. There are calcifications of the coronary arteries. Normal mediastinum. Normal hilar regions. Diffuse enlargement of the thyroid gland. Normal visualized trachea and bronchi. There are no pulmonary infiltrates. Calcified left lower lobe granuloma. There are no pleural effusions. Normal chest wall structures. Mild degenerative changes of the thoracic spine. The visualized portions of the upper abdomen demonstrate well-circumscribed 3.7 cm mass between the tail of the pancreas and the left adrenal gland. CT/CTA Chest W/WO Contrast IMPRESSION: 1. No evidence of pulmonary embolism. 2. No acute pulmonary infiltrate or pleural effusions. 3. Left upper lobe mass described in the CT scan of the abdomen and pelvis report from the same day. Electronically Signed: Dipak Tierney MD at 12:51 EDT ,
[2023-11-04] MEDS: Ondansetron 4 MG/2 ML Vial IV (11:48)
[2023-11-04] MEDS: Morphine 4 MG/ML Syringe IV (11:48)
[2023-11-04 12:34] LABS: Reflex Troponin-HS? (from REC) Y
--- NOTE | 2023-11-04 12:47 | NURSING ---
LAB CALLED LACT[facility] OF 3.0. DR MOYA
[2023-11-04 13:16] LABS: Troponin-I HS 12 pg/mL (3.0-78.0)
--- NOTE | 2023-11-04 14:45 | PCM.HP.STD ---
HPI - General General Date of Admission: 11/04/23 Date of Service: 11/04/23 Chief Complaint: Chest pain HPI Narrative LOKI ENCARANCION, is a 62 y/o male w/ hx of CAD s/p stent in 2019, hypothyroidism, GERD who presented to [facility] 11/04/23 with substernal chest pain. In the ED troponins were negative and EKG did not appear ischemic however given his classic symptoms and patient being off of his aspirin and Plavix for 2 months due to cost issues it was felt further cardiac workup was indicated. Patient also found to have pancreatic mass and had a lactic acid of 3.0 with fairly benign lab workup otherwise but did drop to 87% on room air was put on 2 L O2. Patient also had a little bit abdominal pain in the ED and there was a question of ileus versus enteritis however this completely resolved quickly with no residual symptoms. Hospitalist contacted for chest pain rule out admission. Evaluated patient at bedside and he reports this morning at 9 AM he had substernal chest pain that felt like his previous heart attack in 2019 and the pain did improve some with nitro and he felt very sweaty/diaphoretic and unwell with ambulation point that he could not walk and independently to the ED. Pain is since resolved however patient laying in bed. Denies any shortness of breath, no further abdominal pain, ROS otherwise negative. [facility] Medical History Atherosclerotic heart disease of [place] coronary artery without angina pectoris Black stool Borderline diabetes Essential hypertension History of non-ST elevation myocardial infarction (NSTEMI) (01/22/20) Hyperglycemia Hyperlipidemia Ischemic cardiomyopathy Nicotine dependence Prediabetes Home Medications ?Medication ?Instructions ?Recorded ?Last Taken ?Type aspirin 81 mg chewable tablet 81 mg PO DAILYCM ##30 01/24/20 11/04/23 Rx metformin 500 mg tablet 500 mg PO BID #60 tabs 02/17/20 11/04/23 Rx pantoprazole 40 mg tablet,delayed 40 mg PO DAILY #30 tabs 02/17/20 Unknown Rx release clopidogrel 75 mg tablet (Plavix) 75 mg PO DAILY #30 tabs 03/06/21 Unknown Rx quinapril 20 mg tablet 20 mg PO QPM 10/03/21 Unknown History cholecalciferol (vitamin D3) 25 25 mcg PO DAILY 02/10/23 Unknown History mcg (1,000 unit) capsule ramipril 10 mg capsule 10 mg PO DAILY 02/10/23 Unknown History atorvastatin 40 mg tablet See Rx Instructions .Route 04/28/23 Unknown Rx .COMPLEX #90 tabs carvedilol 12.5 mg tablet 12.5 mg PO BID #180 tabs 04/30/23 Unknown Rx levothyroxine 50 mcg tablet 50 mcg PO DAILY #90 tabs 07/22/23 Unknown Rx amlodipine 10 mg tablet 10 mg PO DAILY #90 tabs 08/17/23 Unknown Rx Allergy/AdvReac Type Severity Reaction Status Date / Time No Known Allergies Allergy Verified 11/04/23 11:40 Surgical History History of coronary artery stent placement (01/23/20) Social History Smoking Status: Light Smoker (<10/day) alcohol intake: never substance use type: does not use caffeine: Yes Type: coffee Number of servings: 1 ROS ROS Narrative General: Denies fever/chills HENT: Denies headache, denies stuffy nose, denies sore throat EYES: Denies changes in vision Resp: Denies cough, denies shortness of breath Cardiac: Had some chest pain this morning GI: Abdominal pain resolved, denies changes in bowel, denies nausea/vomiting : Denies changes in urination Extremity: Denies swelling MSK: Denies weakness Neuro: Denies any numbness/tingling Heme: Denies any bleeding or bruising Skin: Denies rashes Psychiatric: No complaints voiced Vital Signs Vital Signs Vital Signs: 11/04/23 10:22 11/04/23 10:27 11/04/23 11:15 Temperature 96.5 F L Temperature Source Temporal Pulse Rate 59 L Respiratory Rate 22 H Respiratory Effort Short of Breath Blood Pressure 110/73 Blood Pressure Mean 85 Pulse Ox 92 Oxygen Delivery Method Room Air Room Air Oxygen Flow Rate (L/min) 11/04/23 11:22 11/04/23 12:00 11/04/23 12:29 Temperature Temperature Source Pulse Rate 71 81 Respiratory Rate 15 20 H Respiratory Effort Blood Pressure 109/92 H 161/86 H Blood Pressure Mean 97 111 Pulse Ox 87 98 Oxygen Delivery Method Room Air Nasal Cannula Nasal Cannula Oxygen Flow Rate (L/min) 2 11/04/23 13:00 11/04/23 13:45 11/04/23 13:53 Temperature 98 F Temperature Source Pulse Rate 80 88 96 Respiratory Rate 18 18 18 Respiratory Effort Blood Pressure 144/86 H 134/83 H 134/83 H Blood Pressure Mean 105 100 100 Pulse Ox 93 92 98 Oxygen Delivery Method Nasal Cannula Nasal Cannula Oxygen Flow Rate (L/min) 2 Weight Weight: 113.398 kg Body Mass Index (BMI) 41.5 Physical Exam Narrative General: Alert, oriented, no apparent distress HEENT: Atraumatic, normocephalic Eyes: Anicteric, normal conjunctiva, extraocular movements grossly intact Neck: Supple Respiratory: Clear to auscultation bilaterally, somewhat diminished at the bases,, normal respiratory effort Cardiovascular: Regular rate and rhythm GI: Soft, nontender, no rebound guarding or rigidity Extremities: No edema Musculoskeletal: Moving all extremities Neuro: No overt focal neurological deficits Skin: No rashes appreciated Psych: Cooperative Results Lab / Micro Data 11/04/23 10:31 11/04/23 10:31 Labs: Laboratory Results - last 24 hr 11/04/23 10:31: WBC 8.0, RBC 5.27, Hgb 16.3, Hct 49.4, MCV 93.7, MCH 30.9, MCHC 33.0, RDW Std Deviation 43.7, RDW Coeff of Benitez 12.7, Plt Count 163, MPV 9.2, Immature Gran % (Auto) 0.200, Neut % (Auto) 44.4 L, Lymph % (Auto) 41.1 H, [place] % (Auto) 11.1 H, Eos % (Auto) 2.2, Baso % (Auto) 1.0, Absolute Neuts (auto) 3.6, Absolute Lymphs (auto) 3.30, Nucleated RBC % 0, Sodium 136, Potassium 4.3, Chloride 104, Carbon Dioxide 23.0, Anion Gap 9, BUN 18, Creatinine 1.13, Estim Creat Clear Calc 80.88, Est GFR (MDRD) Af Amer 85, Est GFR (MDRD) Non-Af 70, BUN/Creatinine Ratio 15.9, Glucose 206 H, Calcium 9.0, Troponin I High Sens 14 11/04/23 12:05: Lactic Acid 3.0 H* 11/04/23 12:46: Troponin I High Sens 12 Imaging Radiology Impression Chest X-Ray 11/04/23 10:30 IMPRESSION: Stable chest with no acute or emergent finding. Electronically Signed: Carlton Gabriel MD at 10:46 EDT , Abdomen/Pelvis CT 11/04/23 11:45 IMPRESSION: 1. Nonspecific fluid-filled and slightly prominent small bowel loops on the right side of the abdomen could be due to ileus or enteritis. Early small bowel obstruction is less likely. Follow-up exam might be helpful. 2. Left upper abdominal mass as described above could be due to aneurysm or less likely adrenal mass. Further evaluation with nonemergent multiphase CT scan of the upper abdomen or MRI is recommended. 3. Otherwise no focal acute inflammatory process. 4. Umbilical hernia containing fat. 5. Slightly prominent prostate. Electronically Signed: Dipak Tierney MD at 13:06 EDT , Chest CTA 11/04/23 11:45 IMPRESSION: 1. No evidence of pulmonary embolism. 2. No acute pulmonary infiltrate or pleural effusions. 3. Left upper lobe mass described in the CT scan of the abdomen and pelvis report from the same day. Electronically Signed: Dipak Tierney MD at 12:51 EDT , Assessment & Plan Assessment/Plan (1) Chest pain: (2) Atherosclerotic heart disease of [place] coronary artery without angina pectoris: (3) Essential hypertension: (4) Nicotine dependence: (5) Pancreatic mass: (6) Hypoxia: PLAN: Plan #Chest pain in setting of hx of CAD w/ stenting in 2019 and medication noncompliance -EKG suggestive of pulmonary disease, right bundle branch block -Trop negative -Admit to telemetry -Echo ordered -Aspirin -Statin -Lipid panel in AM -Discussed with cardiology, patient will likely need cath, made n.p.o. at midnight -Cardiology c/s -Loaded w/ aspirin -Asa, statin -Echo -Patient's home beta-le resumed #Hypoxia -87% on RA in ED -Suspect underlying COPD -Nebs -May need walk test prior to d/c -No present respiratory complaints and no cough or fever, white blood cell count also within normal limits #Abd pain?resolved -Briefly in ED -CT with possible ileus however this had completely resolved by the time of evaluation #Pancreatic mass -3.7 cm pancreatic mass -Will need w/u outpatient, not presently contributing to current hx #Tobacco use -Advise cessation -Nicotine replacement available if desired #GERD -Continue PPI #Morbid obesity -BMI 41.6 kg/m? -Complicates treatment, prognosis, outcomes -Recommend weight loss and lifestyle changes #Hypothyroidism -Continue Synthroid # Hypertension -Resume ZULEYKA and beta-le #DVT ppx: lovenox subq Eva Katz MD Time spent in the patient's overall evaluation,decision-making process, review of diagnostic data, adjustment of management, discussion with other providers, nursing nursing and ancillary staff involved in patient's care documentation, 60 minutes Charges/Coding Visit Charges Inpatient E&M: 25301 Init Hosp L2
[2023-11-04 15:00] LABS: Lactic Acid 2.1 mmol/L (0.4-1.9)
--- NOTE | 2023-11-04 15:31 | ECHOCS_ITS ---
Version 2 Reason For Study: Chest Pain Procedure This was a 2D Doppler, Color Flow transthoracic echocardiogram. Contrast injection was performed. Exam performed portable in patient room. Left Ventricle Normal LV size. The left ventricular ejection fraction is 55 %. Stage 1 diastolic dysfunction. Posterior-Basal: Hypokinetic. Right Ventricle Normal RV size. Normal systolic function. Atria Normal left atrium. Normal right atrium. Mitral Valve Normal mitral valve. Tricuspid Valve Normal tricuspid valve. Aortic Valve The aortic valve is not well visualized. Pulmonic Valve The pulmonic valve is not well visualized. Great Vessels Normal aortic root. The pulmonary artery is normal size. Normal inferior vena cava. Pericardium/Pleural No pericardial effusion. Medication Diluted definity 2ml given slow IV push to enhance endocardial definition. MMode/2D Measurements & Calculations LVIDd: 5.4 cm IVSd: 1.4 cm Ao root diam: 3.3 cm LVIDs: 4.4 cm LVPWd: 0.80 cm RVDd: 3.9 cm FS: 18.3 % LAV(MOD-bp): 27.9 ml LVAd ap4: 27.0 cm2 SV(MOD-sp4): 45.7 ml LAV(MOD-bp) Indexed: 12.6 ml/m2 LVLd ap4: 7.5 cm LAV(MOD-sp2): 32.7 ml EDV(MOD-sp4): 81.5 ml LAV(MOD-sp4): 22.1 ml EDV(sp4-el): 83.0 ml LVAs ap4: 17.2 cm2 LVLs ap4: 7.1 cm ESV(MOD-sp4): 35.8 ml ESV(sp4-el): 35.2 ml EF(MOD-sp4): 56.1 % EF(sp4-el): 57.6 % SV(sp4-el): 47.8 ml LA A4 area: 11.3 cm2 LA dimension(2D): 3.4 cm RA A4 area: 12.8 cm2 Time Measurements MV dec time: 0.23 sec Doppler Measurements & Calculations MV E max heriberto: 50.7 cm/sec Lat Peak E' Heriberto: 9.5 cm/sec Med Peak E' Heriberto: 5.2 cm/sec MV A max heriberto: 87.7 cm/sec E/E' lat: 5.3 E/E' med: 9.8 MV E/A: 0.58 MV dec slope: 225.3 cm/sec2 Ao V2 max: 115.3 cm/sec LV V1 max: 93.4 cm/sec Ao max P.3 mmHg LV V1 max P.5 mmHg Ao V2 mean: 84.6 cm/sec Ao mean P.1 mmHg Ao V2 VTI: 20.3 cm PA V2 max: 94.7 cm/sec ECHO/Echo Complete W/ Contrast Interpretation Summary Normal LV size. The left ventricular ejection fraction is 55 %. Stage 1 diastolic dysfunction. Posterior-Basal: Hypokinetic Contrast injection was performed. Ordering Physician: Eva Katz Referring Physician: Tk Dowell Performed By: Mirtha Allan, MANDA, RVT
[2023-11-04 15:41] LABS: Bacteria 0 SEEN /hpf (None Seen); Mucous, Urine 0 SEEN /hpf (<or=2+); Red Blood Cells-Urine 0 SEEN /hpf (0-5); Squamous Epithelial Cells - UA 0 SEEN /hpf (0-5); White Blood Cells 0 SEEN /hpf (0-5)
[2023-11-04 15:50] LABS: Color, Urine Yellow (Yellow); Glucose, Dipstick Normal (Normal); Ketone-Dipstick Negative (Negative); Leukocyte Esterase-Dipstick Negative /ul (Negative); Nitrite-Dipstick Negative (Negative); Occult Blood-Urine 10 /ul (Negative); Protein-Dipstick 500 mg/dl (Negative); Urine Bilirubin Dipstick Negative (Negative); Urine Clarity Clear (Clear); Urine Urobilinogen 1 mg/dl (Normal)
[2023-11-04 16:12] LABS: Reflex Lactate? Y
[2023-11-04] MEDS: Carvedilol 6.25 MG Tablet PO (16:44)
[2023-11-04 16:58] LABS: Bedside Glucose 127 mg/dL (74-106)
[2023-11-04 17:40] LABS: Lactic Acid 2.9 mmol/L (0.4-1.9)
--- NOTE | 2023-11-04 18:03 | EKG12_ITS ---
Test Reason : REPEAT Blood Pressure : / mmHG Vent. Rate : 057 BPM Atrial Rate : 057 BPM P-R Int : 184 ms QRS Dur : 118 ms QT Int : 458 ms P-R-T Axes : 000 189 097 degrees QTc Int : 445 ms Sinus bradycardia Pulmonary disease pattern Right bundle branch block Abnormal ECG Confirmed by MEENU JACKMAN, KALLI ([id number]), dictionary editor FRANTZ SMALLS ([id number]) on 11/06/2023 9:26:17 AM Referred By: Confirmed By:KALLI CORRIGAN MD
[2023-11-04 18:19] LABS: Reflex Lactate? Y
--- NOTE | 2023-11-04 19:00 | EKG12_ITS ---
Test Reason : CP Blood Pressure : / mmHG Vent. Rate : 088 BPM Atrial Rate : 088 BPM P-R Int : 128 ms QRS Dur : 106 ms QT Int : 366 ms P-R-T Axes : 000 226 083 degrees QTc Int : 442 ms Normal sinus rhythm Right superior axis deviation Right ventricular hypertrophy Abnormal ECG When compared with ECG of 04-NOV-2023 11:12, MANUAL COMPARISON REQUIRED, DATA IS UNCONFIRMED Confirmed by MEENU JACKMAN, KALLI ([id number]), news video editor FRANTZ SMALLS ([id number]) on 11/09/2023 10:30:56 AM Referred By: Confirmed By:KALLI CORRIGAN MD
[2023-11-04] MEDS: Ipratropium/Albuterol Sulfate 3 ML AMPUL.NEB INHALATION (19:12)
[2023-11-04] MEDS: Atorvastatin Calcium 80 MG Tablet PO (23:18)
[2023-11-04] MEDS: 0.9% Normal Saline (1000mL) 1,000 ML 50 ML IV (23:25)
[2023-11-04 23:42] LABS: Bedside Glucose 103 mg/dL (74-106)
[2023-11-05] VITALS (8 sets, daily range): BP systolic 129–149; BP diastolic 71–89; PULSE 79–88; RESP 16–18; TEMP 36.1–36.9; O2SAT 92–97
[2023-11-05] MEDS: Levothyroxine 50 MCG Tablet PO (06:01)
[2023-11-05 06:27] LABS: Bedside Glucose 140 mg/dL (74-106)
[2023-11-05] MEDS: Ipratropium/Albuterol Sulfate 3 ML AMPUL.NEB INHALATION ×3 (07:03→19:45)
[2023-11-05 07:11] LABS: Absolute Lymphocyte Count 1.94 X10^3/uL (0.83-4.51); Absolute Neutrophil Count 4.3 X10^3/uL (2.0-7.7); Basophil# 0.04 X10^3/uL; Basophil% 0.6 % (0-1); Eosinophil# 0.08 X10^3/uL; Eosinophils% 1.1 % (0-5); Hematocrit 50.9 % (40-54); Hemoglobin 16.6 g/dL (13.0-16.5); Lymphocyte # 1.94 X10^3/ul (0.83-4.51); Lymphocyte % 27.6 % (19-41); Mean Corp Hgb Conc 32.6 g/dL (32-36); Mean Corpuscular Hgb 30.8 pg (27.0-32.0); Mean Corpuscular Volume 94.4 fL (80-94); Mean Platelet Vol. 9.5 fl (6.2-12.0); Monocyte# 0.64 X10^3/uL; Monocyte% 9.1 % (0-10); NRBC Flagged by Analyzer 0 % (0-5); Neutrophil % 61.3 % (47-70); Platelet Count 118 K/mm3 (150-450); RBC Distribution Width CV 13.1 % (11.6-14.6); RBC Distribution Width SD 45.1 fl (35.1-43.9); Red Blood Count 5.39 M/mm3 (4.6-6.2)
[2023-11-05 08:00] LABS: ALB/GLOB Ratio 0.8 RATIO (0.9-2.4); AST(SGOT) 31 U/L (15-37); Alanine Aminotransfer ALT/SGPT 26 U/L (16-61); Albumin, Serum 3.1 g/dL (3.2-5.0); Alkaline Phosphatase 79 U/L (45-117); Anion Gap 8 (5-15); BUN 16 mg/dL (7-18); BUN/Creat Ratio 16.5 RATIO (10-20); Chloride 104 mmol/L (98-107); Cholesterol 152 mg/dL (200); Creatinine, Serum 0.97 mg/dL (0.70-1.30); EST Glomerular Filtration Rate 84 mL/min (>60); Est Glom Filt Rate - Afr Amer 101 mL/min (>60); Estimated Creatinine Clearance 93.88 ml/min; Globulin 4.1 g/dL (2.2-4.2); Glucose 139 mg/dL (74-106); High Density Lipoprotein 27 mg/dL; Magnesium 1.9 mg/dL (1.6-2.6); Potassium 4.1 mmol/L (3.5-5.1); Protein, Total 7.2 g/dL (6.4-8.2); Sodium Level 136 mmol/L (136-145); Triglycerides 251 mg/dL; Very Low Density Lipoprotein 50 mg/dL (5-40)
--- NOTE | 2023-11-05 08:01 | PCM.PN.HOSP ---
Reason for Visit Reason for Visit: Chest pain Subjective Subjective Patient is a 62-year-old white male who presented to the emergency department [facility] on 11/04/2023 complaining of chest pain. The patient does have a history of coronary artery disease with previous stent placement in 2019. He had been off both of his aspirin and Plavix for about 2 months due to cost issues. Symptoms started about 9 AM at which time he had substernal chest pain. He reported it felt like his previous heart attack in 2019. The pain did improve with nitroglycerin and the patient felt diaphoretic and unwell having shortness of breath with ambulation to the point where he could not walk. At the time of admission he had resolution of his chest pain and was feeling much better. Vital signs on presentation showed a temperature of 96.5, heart rate 59, blood pressure is 110/73, respiratory was 22 and oxygen saturations were 87% on room air. He was placed on 2 L nasal cannula with improvement to his oxygen saturations up to 98%. CBC showed erythrocytosis and thrombocytopenia. Both are noted to be chronic. Chemistry panel was overtly unremarkable with normal renal function. His glucose was found to be 206 and he had a recent hemoglobin A1c on 08/04/2023 that was 6.9. He had a lactic acid at 2.1 with a repeat of 3.0. Cardiac enzymes were unremarkable. BNP was ordered but pending as the analyzer is not working. His UA was not consistent with infection. Chest x-ray was unremarkable for any acute findings as EKG was unchanged from previous. He complained of some abdominal pain so CT of his abdomen pelvis was obtained and he was found to have some nonspecific fluid-filled and slightly prominent small bowel loops in the right side related to possibly ileus versus enteritis, a left upper abdominal mass that was felt to be related to possible aneurysm or less likely left adrenal mass and no other acute process. He was found to have an umbilical hernia containing fat and slightly prominent prostate. A CTA of his chest was also obtained and there is no evidence of PE or acute pulmonary infiltrate or effusions. The left upper abdominal mass was noted on this imaging as well. The case was discussed with cardiology and plan was for cardiac catheterization. Patient states his abdominal pain is resolved. He stated that the umbilical hernia was hard for period of time and then got soft so he is questioning whether or not there is intermittent bowel stuck in there. I told him that we should have him follow-up with general surgery as an outpatient but there were no acute needs now. States that his chest pain is resolved and he is feeling well. Objective Data Objective Data Vital Signs: Vital Signs Temp Pulse Resp BP Pulse Ox O2 Del Method O2 Flow Rate 96.9 F L 84 17 129/86 H 97 Room Air 2 11/05/23 04:17 11/05/23 07:03 11/05/23 07:03 11/05/23 04:17 11/05/23 07:03 11/05/23 07:42 11/05/23 04:17 Oxygen Flow Rate (L/min) 2 Oxygen Delivery Method Room Air Weight: 109.2 kg Body Mass Index (BMI) 38.8 Intake & Output: Intake and Output for Last 24 Hours 11/03/23 11/04/23 11/05/23 23:59 23:59 23:59 Intake Total 220 / 340 360 / 360 Balance 220 / 340 360 / 360 Lab / Micro Data 11/05/23 06:11 11/05/23 06:11 Labs: Laboratory Results - last 24 hr 11/04/23 10:31: WBC 8.0, RBC 5.27, Hgb 16.3, Hct 49.4, MCV 93.7, MCH 30.9, MCHC 33.0, RDW Std Deviation 43.7, RDW Coeff of Benitez 12.7, Plt Count 163, MPV 9.2, Immature Gran % (Auto) 0.200, Neut % (Auto) 44.4 L, Lymph % (Auto) 41.1 H, [place] % (Auto) 11.1 H, Eos % (Auto) 2.2, Baso % (Auto) 1.0, Absolute Neuts (auto) 3.6, Absolute Lymphs (auto) 3.30, Nucleated RBC % 0, Sodium 136, Potassium 4.3, Chloride 104, Carbon Dioxide 23.0, Anion Gap 9, BUN 18, Creatinine 1.13, Estim Creat Clear Calc 80.88, Est GFR (MDRD) Af Amer 85, Est GFR (MDRD) Non-Af 70, BUN/Creatinine Ratio 15.9, Glucose 206 H, Calcium 9.0, Troponin I High Sens 14, B-Natriuretic Peptide 11/04/23 12:05: Lactic Acid 3.0 H* 11/04/23 12:46: Troponin I High Sens 12 11/04/23 14:15: Lactic Acid 2.1 H* 11/04/23 15:12: Urine Color Yellow, Urine Clarity Clear, Urine pH 5.0, Ur Specific [place] 1.010, Urine Protein 500 H, Urine Glucose (UA) Normal, Urine Ketones Negative, Urine Occult Blood 10 H, Urine Nitrite Negative, Urine Bilirubin Negative, Urine Urobilinogen 1 H, Ur Leukocyte Esterase Negative, Urine RBC 0 SEEN, Urine WBC 0 SEEN, Ur Squamous Epith Cells 0 SEEN, Urine Bacteria 0 SEEN, Urine Mucus 0 SEEN 11/04/23 16:28: POC Glucose 127 H 11/04/23 16:32: Lactic Acid 2.9 H* 11/04/23 18:40: Lactic Acid 3.0 H* 11/04/23 23:20: POC Glucose 103 11/05/23 06:07: POC Glucose 140 H 11/05/23 06:11: WBC 7.0, RBC 5.39, Hgb 16.6 H, Hct 50.9, MCV 94.4 H, MCH 30.8, MCHC 32.6, RDW Std Deviation 45.1 H, RDW Coeff of Benitez 13.1, Plt Count 118 L, MPV 9.5, Immature Gran % (Auto) 0.300, Neut % (Auto) 61.3, Lymph % (Auto) 27.6, [place] % (Auto) 9.1, Eos % (Auto) 1.1, Baso % (Auto) 0.6, Absolute Neuts (auto) 4.3, Absolute Lymphs (auto) 1.94, Nucleated RBC % 0, Sodium 136, Potassium 4.1, Chloride 104, Carbon Dioxide 24.0, Anion Gap 8, BUN 16, Creatinine 0.97, Estim Creat Clear Calc 93.88, Est GFR (MDRD) Af Amer 101, Est GFR (MDRD) Non-Af 84, BUN/Creatinine Ratio 16.5, Glucose 139 H, Calcium 9.0, Phosphorus 3.0, Magnesium 1.9, Total Bilirubin 0.80, AST 31, ALT 26, Alkaline Phosphatase 79, Total Protein 7.2, Albumin 3.1 L, Globulin 4.1, Albumin/Globulin Ratio 0.8 L, Triglycerides 251 H, Cholesterol 152, LDL Cholesterol 75, VLDL Cholesterol 50 H, HDL Cholesterol 27 L, TSH 12.20 H Radiography Diagnostic Testing: Radiology Impression Chest X-Ray 11/04/23 10:30 IMPRESSION: Stable chest with no acute or emergent finding. Electronically Signed: Carlton Gabriel MD at 10:46 EDT , Abdomen/Pelvis CT 11/04/23 11:45 IMPRESSION: 1. Nonspecific fluid-filled and slightly prominent small bowel loops on the right side of the abdomen could be due to ileus or enteritis. Early small bowel obstruction is less likely. Follow-up exam might be helpful. 2. Left upper abdominal mass as described above could be due to aneurysm or less likely adrenal mass. Further evaluation with nonemergent multiphase CT scan of the upper abdomen or MRI is recommended. 3. Otherwise no focal acute inflammatory process. 4. Umbilical hernia containing fat. 5. Slightly prominent prostate. Electronically Signed: Dipak Tierney MD at 13:06 EDT , Chest CTA 11/04/23 11:45 IMPRESSION: 1. No evidence of pulmonary embolism. 2. No acute pulmonary infiltrate or pleural effusions. 3. Left upper lobe mass described in the CT scan of the abdomen and pelvis report from the same day. Electronically Signed: Dipak Tierney MD at 12:51 EDT , Echocardiogram 11/04/23 15:31 Interpretation Summary Normal LV size. The left ventricular ejection fraction is 55 %. Stage 1 diastolic dysfunction. Posterior-Basal: Hypokinetic Contrast injection was performed. Ordering Physician: Eva Katz Referring Physician: Tk Dowell Performed By: Mirtha Allan, MANDA, RVT Physical Exam Const alert, oriented x3, no apparent distress and well nourished; Negative for average body habitus or healthy appearing Constitutional Narrative: Obese, upper middle-aged, white male sitting up on the edge of the bed, at bedside, appears older than stated age, appears chronically ill but currently nontoxic and comfortable HEENT head/scalp atraumatic and moist oral mucous membranes HEENT Narrative: Mallampati 3, no thrush, dentition is poor Head and Scalp: normocephalic Resp normal respiratory effort, no retractions and no use of accessory muscles Resp Narrative: Few scattered end expiratory wheezes Auscultation: wheezes Cardio regular rate, regular rhythm, S1 normal heart sound, S2 normal heart sound, no murmurs, no rub, no gallops and no clicks GI normal to inspection, nondistended, normoactive bowel sounds, soft to palpation and non-tender Extremity Extremity Narrative: Trace bilateral lower extremity edema edema, pedal pulses are 2+, no cyanosis or clubbing Neuro oriented x3, moves all extremities and no focal motor deficits Speech: speech normal Psych affect normal Psych Narrative: Very friendly, interacts appropriately, eye contact is good Assessment & Plan Assessment/Plan (1) Abdominal mass, left upper quadrant: (2) Hypoxia: (3) Chest pain: (4) Lactic acidosis: PLAN: Plan Chest pain -Patient with previous [place] and stenting in 2019 with medication noncompliance as patient has not been taking aspirin or Plavix due to financial reasons -EKG unremarkable for acute findings -Cardiac enzymes cycled and were unremarkable -Echocardiogram performed and showed an EF of 55%, stage I diastolic dysfunction and hypokinesis posterior and basal LV -Wall motion abnormalities are new when compared to previous echo from 11/11/2021 but EF and diastolic dysfunction are stable -Continue aspirin 81 mg daily -Continue carvedilol 6.25 mg p.o. twice daily -Continue ramipril 10 mg daily -Continue atorvastatin 80 mg nightly -Lipid panel done and shows triglycerides of 251/total cholesterol 152/LDL 75/HDL 27 -Hemoglobin A1c is pending however he did have 1 in August that was 6.9 -Cardiology consult pending--> anticipate cardiac catheterization in the near future Lactic acidosis -Etiology is unclear however patient is on metformin at baseline -Patient does not appear to be infected -No need to cycle -May be related to hypoxia Hypoxia -87% on room air in the ED -Highly suspect underlying chronic hypoxia with erythrocytosis on CBC at presentation -Continue DuoNebs as ordered -Continues in send spirometry and add Pep -Will need ambulatory pulse ox prior to discharge -Highly recommend pulmonary medicine follow-up as an outpatient Abdominal pain -Occurred briefly in the emergency department but had resolved prior to admission -CT of the abdomen pelvis was suggestive of possible ileus versus enteritis however patient is now symptomatic so we will just monitor clinically Left upper abdominal mass -Document is pancreatic however upon further review this does not appear to be in the pancreatic head and is in the left upper abdomen -Per read it is possible aneurysm so we will go ahead and obtain MRI while he is hospitalized to rule out aneurysm as this could potentially be life-threatening -MRI with contrast ordered DM-2 -Most recent hemoglobin A1c was 6.9 so at that point appropriate for diet controlled -Repeat A1c is pending -Hold metformin while hospitalized GERD -Continue home PPI Essential hypertension/hyperlipidemia -Continue ZULEYKA inhibitor -Start beta-le -It appears he previously been on amlodipine as well--> hold this with substitution utilizing beta-le for goal-directed therapy -Continue atorvastatin but high intensity dose ordered Hypothyroidism -Continue home levothyroxine Obesity -BMI 38.9 -Recommend weight loss next-complicates treatment, prognosis, outcomes DVT prophylaxis -Subcu enoxaparin 40 twice daily due to BMI CODE STATUS -Full code as verified on admission Charges/Coding Visit Charges Inpatient E&M: 45615 Subs Hosp L2
[2023-11-05 09:00] LABS: Prothrombin Time (Protime)PT. 13.4 SECONDS (11.7-14.9)
[2023-11-05] MEDS: Pantoprazole Sodium 40 MG Tablet PO (09:54)
[2023-11-05] MEDS: Aspirin E.C. 81 MG Tablet PO (09:54)
[2023-11-05] MEDS: Ramipril 10 MG Capsule PO (09:55)
[2023-11-05] MEDS: Carvedilol 6.25 MG Tablet PO ×2 (09:55→16:39)
[2023-11-05 10:04] LABS: T4 Free Direct 1.01 ng/dL (0.76-1.46)
--- NOTE | 2023-11-05 10:17 | PCM.CONS.C ---
Assessment & Plan Assessment/Plan (1) Chest pain: PLAN: Patient presents with chest discomfort but with a negative troponin level. His body habitus is not the most ideal for stress testing. Due to the fact that he says that this was reminiscent of his previous discomfort I would recommend that we obtain a cardiac catheterization and depending on the findings further recommendations will be made. He is agreeable to the above. (2) History of coronary artery stent placement: PLAN: He does have a previous episode of angioplasty and stenting the plan is to continue him on the current medical therapy. He has not been very compliant with his aspirin and clopidogrel and after the cardiac catheterization recommendations will be made. (3) Ischemic cardiomyopathy: PLAN: He does have history of mild cardiomyopathy. Patient will continue the current medical therapy. (4) Essential hypertension: PLAN: His blood pressure is under good control I would not recommend we make any major changes. (5) Hyperlipidemia: PLAN: He does have a history of hyperlipidemia with low HDL. He does have hypertriglyceridemia as well as a TSH which is abnormal. Thank you for allowing me to participate in the care of your patient. Please don't hesitate to call if any issues arise. And continue with his statin. HPI Consult Data Date of Consult: 11/06/23 HPI Narrative HPI Narrative: LOKI ENCARNACOIN, is a 62 M who presents to the emergency room with chest discomfort and mild abdominal discomfort. He says that it was reminiscent of when he had his myocardial infarction. He asked his girlfriend to bring him to the emergency room and EKG was done which demonstrated no evidence of acute ischemia. As part of his workup he underwent evaluation and a pancreatic mass was noted. He had presented in January 2020 with a non-ST elevation myocardial infarction underwent cardiac catheterization which demonstrated an normal left main coronary artery, LAD with diffuse disease, circumflex artery with luminal irregularities and obtuse marginal branch with high-grade stenosis. The right coronary artery also had luminal irregularities. He underwent stenting with a drug-eluting stent of the second obtuse marginal branch and has residual disease in the right posterior lateral vessel of 80%. He has remained free of any angina his last stress test was in March 2020 demonstrating no evidence of ischemia. He had otherwise been doing quite well. His EKG demonstrated sinus rhythm with no acute changes. He has been semicompliant with his medication due to cost issues. [facility], [facility] Medical History Diabetes mellitus, type 2 Erythrocytosis Thrombocytopenia Ischemic cardiomyopathy Essential hypertension Nicotine dependence History of non-ST elevation myocardial infarction (NSTEMI) (01/22/20) Black stool Atherosclerotic heart disease of [place] coronary artery without angina pectoris Hyperlipidemia Borderline diabetes Hyperglycemia Home Medications ?Medication ?Instructions ?Recorded ?Last Taken ?Type aspirin 81 mg chewable tablet 81 mg PO DAILYCM ##30 01/24/20 11/04/23 Rx metformin 500 mg tablet 500 mg PO BID #60 tabs 02/17/20 11/04/23 Rx pantoprazole 40 mg tablet,delayed 40 mg PO DAILY #30 tabs 02/17/20 Unknown Rx release clopidogrel 75 mg tablet (Plavix) 75 mg PO DAILY #30 tabs 03/06/21 Unknown Rx quinapril 20 mg tablet 20 mg PO QPM 10/03/21 Unknown History cholecalciferol (vitamin D3) 25 25 mcg PO DAILY 02/10/23 Unknown History mcg (1,000 unit) capsule ramipril 10 mg capsule 10 mg PO DAILY 02/10/23 Unknown History atorvastatin 40 mg tablet See Rx Instructions .Route 04/28/23 Unknown Rx .COMPLEX #90 tabs carvedilol 12.5 mg tablet 12.5 mg PO BID #180 tabs 04/30/23 Unknown Rx levothyroxine 50 mcg tablet 50 mcg PO DAILY #90 tabs 07/22/23 Unknown Rx amlodipine 10 mg tablet 10 mg PO DAILY #90 tabs 08/17/23 Unknown Rx Allergy/AdvReac Type Severity Reaction Status Date / Time No Known Allergies Allergy Verified 11/04/23 11:40 Surgical History History of coronary artery stent placement (01/23/20) Social History Smoking Status: Light Smoker (<10/day) alcohol intake: never substance use type: does not use caffeine: Yes Type: coffee Number of servings: 1 ROS Constitutional Constitutional: Denies fever(s) or weight loss Eyes Eyes: Reports systems reviewed and no addt'l complaints, except as documented ENT HEENT: Reports systems reviewed and no addt'l complaints, except as documented Cardiovascular Cardiovascular: Reports chest pain at rest and dyspnea on exertion; Denies chest pain with activity, dyspnea at rest, edema, palpitations or paroxysmal nocturnal dyspnea Respiratory/Chest Respiratory/Chest: Denies dyspnea on exertion, productive cough, shortness of breath at rest or shortness of breath with exertion Gastrointestinal Gastrointestinal: Denies change in bowel habits, nausea, vomiting or weight changes Genitourinary Genitourinary: Denies difficulty urinating Musculoskeletal Musculoskeletal: Denies joint stiffness or muscle weakness Integumentary Integumentary: Denies lesions Neurologic Neurologic: Denies dizziness or syncope Psychiatric Psychiatric: Denies anxiety Endocrine Endocrinology: Denies excessive sweating or fatigue Hematologic/Lymphatic Hematologic/Lymphatic: Denies anemia Allergic/Immunologic Allergic/Immunologic: Denies seasonal rhinorrhea Physical Exam Const alert, oriented x3 and no apparent distress General Appearance: cooperative HEENT hearing grossly normal bilaterally Head and Scalp: atraumatic Eyes EOMs intact bilaterally Neck General: normal visual inspection Chest inspection of chest normal and palpation of chest normal Resp normal respiratory effort Auscultation: clear to auscultation bilaterally Cardio regular rate, regular rhythm, S1 normal heart sound and S2 normal heart sound Jugular Venous Distention: JVD GI normal to inspection, nondistended, normoactive bowel sounds Extremity normal capillary refill and no pedal edema Peripheral Pulses: Yes pulses 2+ throughout and femoral pulses present Skin no rashes or lesions noted Neuro oriented x3 and CN's II-XII intact bilaterally Psych Appearance: grossly normal and appropriate Risk Stratification Risk Stratification Applicable: Yes Age >/= 65: No >/= 3 CAD Risk Factors (HTN, HLD, DM, family hx of CAD, or current smoker): Yes Aspirin Use in the Past 7 Days: No Severe Angina (>/= episodes in 24 hours): No EKG ST Changes >/= 0.5mm: No Positive Cardiac Marker: No LELAND Risk Stratification Score: 1 LELAND % Risk: 5% Risk Objective Data Vital Signs: Vital Signs Temp Pulse Resp BP Pulse Ox O2 Del Method O2 Flow Rate 98.4 F 84 18 149/89 H 94 Room Air 2 11/05/23 09:53 11/05/23 09:53 11/05/23 09:53 11/05/23 09:53 11/05/23 09:53 11/05/23 09:53 11/05/23 04:17 Oxygen Flow Rate (L/min) 2 Oxygen Delivery Method Room Air Weight: 240 lb 11.916 oz Body Mass Index (BMI) 38.8 Intake & Output: Intake and Output for Last 24 Hours 11/03/23 11/04/23 11/05/23 23:59 23:59 23:59 Intake Total 220 / 340 360 / 360 Balance 220 / 340 360 / 360 Lab / Micro Data 11/06/23 05:52 11/05/23 06:11 Labs: Laboratory Results - last 24 hr 11/04/23 10:31: WBC 8.0, RBC 5.27, Hgb 16.3, Hct 49.4, MCV 93.7, MCH 30.9, MCHC 33.0, RDW Std Deviation 43.7, RDW Coeff of Benitez 12.7, Plt Count 163, MPV 9.2, Immature Gran % (Auto) 0.200, Neut % (Auto) 44.4 L, Lymph % (Auto) 41.1 H, [place] % (Auto) 11.1 H, Eos % (Auto) 2.2, Baso % (Auto) 1.0, Absolute Neuts (auto) 3.6, Absolute Lymphs (auto) 3.30, Nucleated RBC % 0, Sodium 136, Potassium 4.3, Chloride 104, Carbon Dioxide 23.0, Anion Gap 9, BUN 18, Creatinine 1.13, Estim Creat Clear Calc 80.88, Est GFR (MDRD) Af Amer 85, Est GFR (MDRD) Non-Af 70, BUN/Creatinine Ratio 15.9, Glucose 206 H, Calcium 9.0, Troponin I High Sens 14, B-Natriuretic Peptide 11/04/23 12:05: Lactic Acid 3.0 H* 11/04/23 12:46: Troponin I High Sens 12 11/04/23 14:15: Lactic Acid 2.1 H* 11/04/23 15:12: Urine Color Yellow, Urine Clarity Clear, Urine pH 5.0, Ur Specific [place] 1.010, Urine Protein 500 H, Urine Glucose (UA) Normal, Urine Ketones Negative, Urine Occult Blood 10 H, Urine Nitrite Negative, Urine Bilirubin Negative, Urine Urobilinogen 1 H, Ur Leukocyte Esterase Negative, Urine RBC 0 SEEN, Urine WBC 0 SEEN, Ur Squamous Epith Cells 0 SEEN, Urine Bacteria 0 SEEN, Urine Mucus 0 SEEN 11/04/23 16:28: POC Glucose 127 H 11/04/23 16:32: Lactic Acid 2.9 H* 11/04/23 18:40: Lactic Acid 3.0 H* 11/04/23 23:20: POC Glucose 103 11/05/23 06:07: POC Glucose 140 H 11/05/23 06:11: WBC 7.0, RBC 5.39, Hgb 16.6 H, Hct 50.9, MCV 94.4 H, MCH 30.8, MCHC 32.6, RDW Std Deviation 45.1 H, RDW Coeff of Benitez 13.1, Plt Count 118 L, MPV 9.5, Immature Gran % (Auto) 0.300, Neut % (Auto) 61.3, Lymph % (Auto) 27.6, [place]fer[place] % (Auto) 9.1, Eos % (Auto) 1.1, Baso % (Auto) 0.6, Absolute Neuts (auto) 4.3, Absolute Lymphs (auto) 1.94, Nucleated RBC % 0, PT 13.4, INR 1.0, Sodium 136, Potassium 4.1, Chloride 104, Carbon Dioxide 24.0, Anion Gap 8, BUN 16, Creatinine 0.97, Estim Creat Clear Calc 93.88, Est GFR (MDRD) Af Amer 101, Est GFR (MDRD) Non-Af 84, BUN/Creatinine Ratio 16.5, Glucose 139 H, Calcium 9.0, Phosphorus 3.0, Magnesium 1.9, Total Bilirubin 0.80, AST 31, ALT 26, Alkaline Phosphatase 79, Total Protein 7.2, Albumin 3.1 L, Globulin 4.1, Albumin/Globulin Ratio 0.8 L, Triglycerides 251 H, Cholesterol 152, LDL Cholesterol 75, VLDL Cholesterol 50 H, HDL Cholesterol 27 L, TSH 12.20 H, Free T4 1.01 Cardiology Labs/Tests 11/04/23 10:31: WBC 8.0, RBC 5.27, Hgb 16.3, Hct 49.4, MCV 93.7, MCH 30.9, MCHC 33.0, Plt Count 163, MPV 9.2, Immature Gran % (Auto) 0.200, Neut % (Auto) 44.4 L, Lymph % (Auto) 41.1 H, [place] % (Auto) 11.1 H, Eos % (Auto) 2.2, Baso % (Auto) 1.0, Absolute Neuts (auto) 3.6, Nucleated RBC % 0, Sodium 136, Potassium 4.3, Chloride 104, Carbon Dioxide 23.0, Anion Gap 9, BUN 18, Creatinine 1.13, Est GFR (MDRD) Af Amer 85, Est GFR (MDRD) Non-Af 70, BUN/Creatinine Ratio 15.9, Glucose 206 H, Calcium 9.0, B-Natriuretic Peptide 11/04/23 12:05: Lactic Acid 3.0 H* 11/04/23 14:15: Lactic Acid 2.1 H* 11/04/23 15:12: Urine Color Yellow, Urine Clarity Clear, Urine pH 5.0, Ur Specific [place] 1.010, Urine Protein 500 H, Urine Glucose (UA) Normal, Urine Ketones Negative, Urine Occult Blood 10 H, Urine Nitrite Negative, Urine Bilirubin Negative, Urine Urobilinogen 1 H, Ur Leukocyte Esterase Negative, Urine RBC 0 SEEN, Urine WBC 0 SEEN 11/04/23 16:32: Lactic Acid 2.9 H* 11/04/23 18:40: Lactic Acid 3.0 H* 11/05/23 06:11: WBC 7.0, RBC 5.39, Hgb 16.6 H, Hct 50.9, MCV 94.4 H, MCH 30.8, MCHC 32.6, Plt Count 118 L, MPV 9.5, Immature Gran % (Auto) 0.300, Neut % (Auto) 61.3, Lymph % (Auto) 27.6, [place] % (Auto) 9.1, Eos % (Auto) 1.1, Baso % (Auto) 0.6, Absolute Neuts (auto) 4.3, Nucleated RBC % 0, PT 13.4, INR 1.0, Sodium 136, Potassium 4.1, Chloride 104, Carbon Dioxide 24.0, Anion Gap 8, BUN 16, Creatinine 0.97, Est GFR (MDRD) Af Amer 101, Est GFR (MDRD) Non-Af 84, BUN/Creatinine Ratio 16.5, Glucose 139 H, Calcium 9.0, Phosphorus 3.0, Magnesium 1.9, Total Bilirubin 0.80, Triglycerides 251 H, Cholesterol 152, LDL Cholesterol 75, VLDL Cholesterol 50 H, HDL Cholesterol 27 L Rhythm: EKG: Sinus bradycardia with a rate of 57 bpm no acute changes. ECHO: Stress Test: Cardiac Cath: PCI: CT Surgery: Holter monitor: EPS: PPM: CXR: Chest CT Scan: Radiography Diagnostic Testing: Radiology Impression Chest X-Ray 11/04/23 10:30 IMPRESSION: Stable chest with no acute or emergent finding. Electronically Signed: Carlton Gabriel MD at 10:46 EDT , Abdomen/Pelvis CT 11/04/23 11:45 IMPRESSION: 1. Nonspecific fluid-filled and slightly prominent small bowel loops on the right side of the abdomen could be due to ileus or enteritis. Early small bowel obstruction is less likely. Follow-up exam might be helpful. 2. Left upper abdominal mass as described above could be due to aneurysm or less likely adrenal mass. Further evaluation with nonemergent multiphase CT scan of the upper abdomen or MRI is recommended. 3. Otherwise no focal acute inflammatory process. 4. Umbilical hernia containing fat. 5. Slightly prominent prostate. Electronically Signed: Dipak Tierney MD at 13:06 EDT , Chest CTA 11/04/23 11:45 IMPRESSION: 1. No evidence of pulmonary embolism. 2. No acute pulmonary infiltrate or pleural effusions. 3. Left upper lobe mass described in the CT scan of the abdomen and pelvis report from the same day. Electronically Signed: Dipak Tierney MD at 12:51 EDT , Echocardiogram 11/04/23 15:31 Interpretation Summary Normal LV size. The left ventricular ejection fraction is 55 %. Stage 1 diastolic dysfunction. Posterior-Basal: Hypokinetic Contrast injection was performed. Ordering Physician: Eva Katz Referring Physician: Tk Dowell Performed By: Mirtha Allan RDCS, STEFF
[2023-11-05] MEDS: Enoxaparin 40 MG/0.4 ML Syringe SC (11:39)
[2023-11-05 12:02] LABS: Bedside Glucose 143 mg/dL (74-106)
[2023-11-05 17:00] LABS: Bedside Glucose 140 mg/dL (74-106)
[2023-11-05] MEDS: Atorvastatin Calcium 80 MG Tablet PO (21:41)
[2023-11-05 22:52] LABS: Bedside Glucose 110 mg/dL (74-106)
[2023-11-06] VITALS (14 sets, daily range): BP systolic 90–156; BP diastolic 64–96; PULSE 71–96; RESP 16–20; TEMP 36.4–36.8; O2SAT 91–97
--- NOTE | 2023-11-06 05:55 | EKG12_ITS ---
Test Reason : PRE OP Blood Pressure : / mmHG Vent. Rate : 079 BPM Atrial Rate : 079 BPM P-R Int : 144 ms QRS Dur : 110 ms QT Int : 374 ms P-R-T Axes : 062 239 082 degrees QTc Int : 428 ms Normal sinus rhythm Pulmonary disease pattern Right bundle branch block Abnormal ECG When compared with ECG of 04-NOV-2023 19:00, MANUAL COMPARISON REQUIRED, DATA IS UNCONFIRMED Confirmed by MEENU JACKMAN, KALLI ([id number]), graphic editor FRANTZ SMALLS ([id number]) on 11/09/2023 10:26:49 AM Referred By: VERNA Confirmed By:KALLI CORRIGAN MD
[2023-11-06] MEDS: Aspirin E.C. 81 MG Tablet PO (06:33)
[2023-11-06] MEDS: Levothyroxine 50 MCG Tablet PO (06:33)
[2023-11-06] MEDS: Ramipril 10 MG Capsule PO (06:33)
[2023-11-06] MEDS: Carvedilol 6.25 MG Tablet PO ×2 (06:33→16:44)
[2023-11-06] MEDS: Ipratropium/Albuterol Sulfate 3 ML AMPUL.NEB INHALATION ×3 (06:51→19:15)
[2023-11-06 06:53] LABS: Bedside Glucose 158 mg/dL (74-106)
[2023-11-06 07:01] LABS: Hematocrit 49.6 % (40-54); Hemoglobin 16.5 g/dL (13.0-16.5); Mean Corp Hgb Conc 33.3 g/dL (32-36); Mean Corpuscular Hgb 31.4 pg (27.0-32.0); Mean Corpuscular Volume 94.3 fL (80-94); Mean Platelet Vol. 9.6 fl (6.2-12.0); Platelet Count 106 K/mm3 (150-450); RBC Distribution Width CV 12.8 % (11.6-14.6); RBC Distribution Width SD 44.2 fl (35.1-43.9); Red Blood Count 5.26 M/mm3 (4.6-6.2); White Blood Count 6.3 K/mm3 (4.4-11.0)
[2023-11-06 07:26] LABS: Anion Gap 8 (5-15); BUN 15 mg/dL (7-18); BUN/Creat Ratio 14.6 RATIO (10-20); Calcium,Total 9.1 mg/dL (8.5-10.1); Chloride 103 mmol/L (98-107); Creatinine, Serum 1.03 mg/dL (0.70-1.30); EST Glomerular Filtration Rate 78 mL/min (>60); Est Glom Filt Rate - Afr Amer 95 mL/min (>60); Estimated Creatinine Clearance 88.41 ml/min; Glucose 132 mg/dL (74-106); Sodium Level 136 mmol/L (136-145)
[2023-11-06] MEDS: 0.9% Normal Saline (1000mL) 1,000 ML 15 ML IV (07:48)
[2023-11-06] MEDS: 0.9% Saline Lock 10 ML Syringe IV (07:48)
--- NOTE | 2023-11-06 07:54 | NURSING ---
Called report to Tracey LARKIN in [facility]
--- NOTE | 2023-11-06 07:59 | MRI_ITS ---
EXAM: MR ABDOMEN WITHOUT AND WITH INTRAVENOUS CONTRAST CLINICAL INDICATION: L abd mass TECHNIQUE: Multiplanar and multisequence MR images of the abdomen without and with intravenous contrast. CONTRAST: IV Yes YES COMPARISON: CT scan of the abdomen and pelvis of 11/21/2023 FINDINGS: LOWER THORAX: No pleural effusion. LIVER: Small liver cyst. Somewhat irregular liver which may reflect cirrhosis. GALLBLADDER AND BILE DUCTS: Unremarkable. No gallstones. No gallbladder distention or wall edema. No intra- or extrahepatic biliary ductal dilation. PANCREAS: No focal cystic or solid mass. SPLEEN: Normal size without focal cystic or solid mass. ADRENALS: No nodules. KIDNEYS AND URETERS: 3.6 cm simple cyst in the left kidney for which no further follow-up exam is needed. Smaller cyst in the right side. Normal renal size and position. No hydronephrosis. INTRAPERITONEAL SPACE: No ascites or other fluid collection. No free air. VASCULATURE: There is a saccular aneurysm appears to be arising from the left renal artery measuring about 3.7 cm corresponding to the CT abnormality. There is peripheral flow anteriorly with thrombus. LYMPH NODES: No enlarged lymph nodes. MRI/MRI Abd WITH and W/O Contrast IMPRESSION: 1. 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 2. Irregular liver suggestive of early cirrhosis. Electronically Signed: Dipak Tierney MD at 13:54 EDT ,
--- NOTE | 2023-11-06 08:39 | PCM.PN.CARD ---
Subjective Subjective Patient seen and evaluated. Underwent cardiac catheterization today. Objective Data Vital Signs: Vital Signs Temp Pulse Resp BP Pulse Ox O2 Del Method O2 Flow Rate 97.6 F L 79 18 137/77 H 97 Room Air 2 11/06/23 06:28 11/06/23 06:51 11/06/23 06:51 11/06/23 06:28 11/06/23 06:51 11/06/23 07:55 11/05/23 04:17 Oxygen Flow Rate (L/min) 2 Oxygen Delivery Method Room Air Weight: 240 lb 11.916 oz Body Mass Index (BMI) 38.8 Intake & Output: Intake and Output for Last 24 Hours 11/04/23 11/05/23 11/06/23 23:59 23:59 23:59 Intake Total 220 / 340 2440 / 2440 Balance 220 / 340 2440 / 2440 Lab / Micro Data 11/06/23 05:52 11/06/23 05:52 Labs: Laboratory Results - last 24 hr 11/05/23 06:11: PT 13.4, INR 1.0, Free T4 1.01 11/05/23 11:38: POC Glucose 143 H 11/05/23 16:32: POC Glucose 140 H 11/05/23 21:43: POC Glucose 110 H 11/06/23 05:52: WBC 6.3, RBC 5.26, Hgb 16.5, Hct 49.6, MCV 94.3 H, MCH 31.4, MCHC 33.3, RDW Std Deviation 44.2 H, RDW Coeff of Benitez 12.8, Plt Count 106 L, MPV 9.6, Sodium 136, Potassium 4.0, Chloride 103, Carbon Dioxide 25.0, Anion Gap 8, BUN 15, Creatinine 1.03, Estim Creat Clear Calc 88.41, Est GFR (MDRD) Af Amer 95, Est GFR (MDRD) Non-Af 78, BUN/Creatinine Ratio 14.6, Glucose 132 H, Calcium 9.1 11/06/23 06:30: POC Glucose 158 H Cardiology Labs/Tests 11/05/23 06:11: PT 13.4, INR 1.0 11/06/23 05:52: WBC 6.3, RBC 5.26, Hgb 16.5, Hct 49.6, MCV 94.3 H, MCH 31.4, MCHC 33.3, Plt Count 106 L, MPV 9.6, Sodium 136, Potassium 4.0, Chloride 103, Carbon Dioxide 25.0, Anion Gap 8, BUN 15, Creatinine 1.03, Est GFR (MDRD) Af Amer 95, Est GFR (MDRD) Non-Af 78, BUN/Creatinine Ratio 14.6, Glucose 132 H, Calcium 9.1 Rhythm: EKG: ECHO: Stress Test: Cardiac Cath: PCI: CT Surgery: Holter monitor: EPS: PPM: CXR: Chest CT Scan: Physical Exam Const alert, oriented x3 and no apparent distress General Appearance: cooperative HEENT hearing grossly normal bilaterally Head and Scalp: atraumatic Eyes EOMs intact bilaterally Neck General: normal visual inspection Chest inspection of chest normal and palpation of chest normal Resp normal respiratory effort Auscultation: clear to auscultation bilaterally Cardio regular rate, regular rhythm, S1 normal heart sound and S2 normal heart sound Jugular Venous Distention: JVD GI normal to inspection, nondistended, normoactive bowel sounds Extremity normal capillary refill and no pedal edema Peripheral Pulses: Yes pulses 2+ throughout and femoral pulses present Skin no rashes or lesions noted Neuro oriented x3 and CN's II-XII intact bilaterally Psych Appearance: grossly normal and appropriate Assessment & Plan Assessment/Plan (1) Chest pain: PLAN: Patient presents with chest discomfort but with a negative troponin level. His cardiac catheterization demonstrated the following: Mildly diseased left main coronary artery. Left anterior descending artery which is severely diseased with multiple 70% stenosis and subtotal occlusion distally Left circumflex artery with high-grade stenosis in the previously stented vessel large dominant right coronary artery with high-grade mid segment stenosis Low normal ejection fraction due to the above I would suggest that we consider coronary artery bypass surgery But he does have multiple other medical issues that need to be addressed. (2) History of coronary artery stent placement: PLAN: He does have a previous episode of angioplasty and stenting the plan is to continue him on the current medical therapy. He has not been very compliant with his aspirin and clopidogrel. (3) Ischemic cardiomyopathy: PLAN: He does have history of mild cardiomyopathy. Patient will continue the current medical therapy. (4) Essential hypertension: PLAN: His blood pressure is under good control I would not recommend we make any major changes. (5) Hyperlipidemia: PLAN: He does have a history of hyperlipidemia with low HDL. He does have hypertriglyceridemia as well as a TSH which is abnormal. Thank you for allowing me to participate in the care of your patient. Please don't hesitate to call if any issues arise. And continue with his statin.
--- NOTE | 2023-11-06 08:44 | CASEMGMT ---
Insurance review for hospitals In-network with [employer] [facility] insurance if transfer is recommended is as follows: [facility], [facility], [facility], Demetrius YANG ([facility]), [facility]. Stephanie Carpio, Discharge Planning Asst.
[2023-11-06] MEDS: Pantoprazole Sodium 40 MG Tablet PO (08:55)
--- NOTE | 2023-11-06 09:00 | CL.D_ITS ---
Patient Name: LOKI ENCARNACION Study Date: 11/06/2023 Performing: Molina Artis MD Ht: 66 inches 167.64 cm : 1960 Wt: 241.1 lbs 109.2 kg Age: 62 Gender: male BSA: 2.16 PROCEDURE(S) PERFORMED [id number])LHC/COR/LV CLINICAL PROFILE AND INDICATIONS Indications: Worsening Angina Heart Failure: None Stress/Imaging Stress/Image Study Performed: No CAD Presentations: Stable angina. CONCLUSIONS Triple-vessel disease involving the LAD and multiple segments, previously stented obtuse marginal vessel with high-grade stenosis, and high-grade stenosis of the mid right coronary artery nondominant vessel and mild left ventricular systolic function reduction RECOMMENDATIONS Due to his multiple other medical and abdominal problems we will consider surgery but after evaluation of those above problems. DESCRIPTION OF PROCEDURE The patient arrived to the procedure lab. The risks and benefits of the procedure as well as a full description of our services here and current unavailability of surgical backup were fully explained to the patient and/or their significant other prior to the catheterization. The Timeout was completed, verifying the correct patient and procedure. The patient's procedural site was prepped and draped in the usual fashion. Local anesthetic was given subcutaneously to right radial region with Lidocaine 2%. Using a modified Seldinger technique, arterial access was obtained via the right radial artery, a 6Fr sheath was inserted. Left Coronary Artery selective angiography was performed in multiple views using a 5 Fr. 4.0 [place] catheter. Right Coronary Artery selective angiography was then performed in multiple views using a 5 Fr. 4.0 [place] catheter. Left Ventriculography was performed in [place] projection using a 5 Fr. [place] catheter. LV to AO pullback pressures were then recorded.The arterial sheath was pulled and a TR Band was applied for hemostasis CORONARY ANGIOGRAPHY DOMINANCE: Right Dominant LEFT HEART ASSESSMENT Left Ventricular Ejection Fraction: by LV Gram 45 % Global Hypokinesis - Mild Depressed Left Ventricular systolic function LEFT MAIN: Mild calcification, Mild luminal irregularities less than 30% LEFT ANTERIOR DESCENDING ARTERY: Medium size vessel with proximal calcified sequential 70% smooth long lesions and then the vessel appears to be subtotally occluded in the mid to distal segment CIRCUMFLEX ARTERY: Nondominant but medium size vessel. First obtuse marginal branch was stented and an area in the stent is noted to have a 70 to 80% stenosis the AV groove branch appears to be totally occluded with [id number] collaterals. RAMUS: Mild luminal irregularities less than 30% RIGHT CORONARY ARTERY: Large dominant very calcified vessel with a mid segment with a hazy 70% stenosis and distal origin of the posterior descending artery with 70 to 80% stenosis COLLATERAL FLOW: Collateral flow from Left to Right COMPLICATIONS No Complications PROCEDURE MEDICATIONS Fentanyl 50 mcg IV Versed 1 mg IV Versed 1 mg IV Oxygen: 2 L/min via nasal cannula Oxygen: 4 L/min via nasal cannula SUMMARY OF HEMODYNAMIC DATA Time AIR REST ECG 08:12:24 AO 99/76 (86) SA 08:22:51 AO 121/88 (104) 08:26:32 LV 127/15, 22 08:32:37 LV 126/13, 23 08:32:46 LV 0/0, 12 08:33:24 LV 114/17, 22 08:33:33 LVp 116/18, 24 08:33:41 AOp 0/0 (55) 08:33:48 Signed By Molina Artis MD On 11/06/2023 09:00:13 Molina Artis MD
[2023-11-06] MEDS: Insulin Lispro 100 UNIT/ML INSULN.PEN SC (13:04)
[2023-11-06 13:19] LABS: Bedside Glucose 159 mg/dL (74-106)
[2023-11-06 14:16] LABS: Hemoglobin A1c 6.5 % (3.8-5.6)
--- NOTE | 2023-11-06 14:54 | PCM.DC.SUM ---
Providers Date of Admission: 11/04/23 Date of Discharge: 11/06/23 Primary Care Physician: Dr. Tk Dowell MD Consultations 11/04/23 15:31 Consult: Cardiology Routine Consulting Provider: Molina Artis Reason for Consult: Chest Pain EMERGENT Consult: No MD Notified: Yes Date Notified: 11/04/23 Time Notified: 15:05 Method of Notification: Verbal Reason For Visit: CHEST PAIN, HYPOXIA Diagnosis Discharge Diagnosis (1) Chest pain: Status: Acute Code(s): R07.9 - Chest pain, unspecified (2) History of coronary artery stent placement: Status: Resolved Code(s): Z95.5 - Presence of coronary angioplasty implant and graft (3) Ischemic cardiomyopathy: Status: Chronic Code(s): I25.5 - Ischemic cardiomyopathy (4) Essential hypertension: Status: Chronic Code(s): I10 - Essential (primary) hypertension (5) Hyperlipidemia: Status: Chronic Code(s): E78.5 - Hyperlipidemia, unspecified Plan Chest pain -Patient with previous WA and stenting in 2019 with medication noncompliance as patient has not been taking aspirin or Plavix due to financial reasons -EKG unremarkable for acute findings -Cardiac enzymes cycled and were unremarkable -Echocardiogram performed and showed an EF of 55%, stage I diastolic dysfunction and hypokinesis posterior and basal LV -Wall motion abnormalities are new when compared to previous echo from 11/11/2021 but EF and diastolic dysfunction are stable -Continue aspirin 81 mg daily -Continue carvedilol 6.25 mg p.o. twice daily -Continue ramipril 10 mg daily -Continue atorvastatin 80 mg nightly -Lipid panel done and shows triglycerides of 251/total cholesterol 152/LDL 75/HDL 27 -Hemoglobin A1c is pending however he did have 1 in August that was 6.9 -Cardiology consult pending--> anticipate cardiac catheterization in the near future Lactic acidosis -Etiology is unclear however patient is on metformin at baseline -Patient does not appear to be infected -No need to cycle -May be related to hypoxia Hypoxia -87% on room air in the ED -Highly suspect underlying chronic hypoxia with erythrocytosis on CBC at presentation -Continue DuoNebs as ordered -Continues in send spirometry and add Pep -Will need ambulatory pulse ox prior to discharge -Highly recommend pulmonary medicine follow-up as an outpatient Abdominal pain -Occurred briefly in the emergency department but had resolved prior to admission -CT of the abdomen pelvis was suggestive of possible ileus versus enteritis however patient is now symptomatic so we will just monitor clinically Left upper abdominal mass -Document is pancreatic however upon further review this does not appear to be in the pancreatic head and is in the left upper abdomen -Per read it is possible aneurysm so we will go ahead and obtain MRI while he is hospitalized to rule out aneurysm as this could potentially be life-threatening -MRI with contrast ordered DM-2 -Most recent hemoglobin A1c was 6.9 so at that point appropriate for diet controlled -Repeat A1c is pending -Hold metformin while hospitalized GERD -Continue home PPI Essential hypertension/hyperlipidemia -Continue ZULEYKA inhibitor -Start beta-le -It appears he previously been on amlodipine as well--> hold this with substitution utilizing beta-le for goal-directed therapy -Continue atorvastatin but high intensity dose ordered Hypothyroidism -Continue home levothyroxine Obesity -BMI 38.9 -Recommend weight loss next-complicates treatment, prognosis, outcomes DVT prophylaxis -Subcu enoxaparin 40 twice daily due to BMI CODE STATUS -Full code as verified on admission Medications at Discharge Home Medications aspirin 81 mg chewable tablet 81 mg PO DAILYCM ##30 01/24/20 metformin 500 mg tablet 500 mg PO BID #60 tabs 02/17/20 pantoprazole 40 mg tablet,delayed release 40 mg PO DAILY #30 tabs 02/17/20 clopidogrel 75 mg tablet (Plavix) 75 mg PO DAILY #30 tabs 03/06/21 quinapril 20 mg tablet 20 mg PO QPM 10/03/21 cholecalciferol (vitamin D3) 25 mcg (1,000 unit) capsule 25 mcg PO DAILY 02/10/23 ramipril 10 mg capsule 10 mg PO DAILY 02/10/23 atorvastatin 40 mg tablet See Rx Instructions .Route .COMPLEX #90 tabs 04/28/23 carvedilol 12.5 mg tablet 12.5 mg PO BID #180 tabs 04/30/23 levothyroxine 50 mcg tablet 50 mcg PO DAILY #90 tabs 07/22/23 amlodipine 10 mg tablet 10 mg PO DAILY #90 tabs 08/17/23 Hospital Course Procedures 2-D Echocardiogram, Cardiac catheterization, EKG and - (Chest x-ray/CTA chest abdomen and pelvis/MRI abdomen) Summary of Care Provided Minutes Spent on Discharge: 38 Hospital Course: Patient is a 62-year-old white male who presented to the emergency department [facility] on 11/04/2023 complaining of chest pain. The patient does have a history of coronary artery disease with previous stent placement in 2019. He had been off both of his aspirin and Plavix for about 2 months due to cost issues. Symptoms started about 9 AM at which time he had substernal chest pain. He reported it felt like his previous heart attack in 2019. The pain did improve with nitroglycerin and the patient felt diaphoretic and unwell having shortness of breath with ambulation to the point where he could not walk. At the time of admission he had resolution of his chest pain and was feeling much better. Vital signs on presentation showed a temperature of 96.5, heart rate 59, blood pressure is 110/73, respiratory was 22 and oxygen saturations were 87% on room air. He was placed on 2 L nasal cannula with improvement to his oxygen saturations up to 98%. CBC showed erythrocytosis and thrombocytopenia. Both are noted to be chronic. Chemistry panel was overtly unremarkable with normal renal function. His glucose was found to be 206 and he had a recent hemoglobin A1c on 08/04/2023 that was 6.9. He had a lactic acid at 2.1 with a repeat of 3.0. Cardiac enzymes were unremarkable. BNP was ordered but pending as the analyzer is not working. His UA was not consistent with infection. Chest x-ray was unremarkable for any acute findings as EKG was unchanged from previous. He complained of some abdominal pain so CT of his abdomen pelvis was obtained and he was found to have some nonspecific fluid-filled and slightly prominent small bowel loops in the right side related to possibly ileus versus enteritis, a left upper abdominal mass that was felt to be related to possible aneurysm or less likely left adrenal mass and no other acute process. He was found to have an umbilical hernia containing fat and slightly prominent prostate. A CTA of his chest was also obtained and there is no evidence of PE or acute pulmonary infiltrate or effusions. The left upper abdominal mass was noted on this imaging as well. The case was discussed with cardiology and plan was for cardiac catheterization. After admission he did not have any more chest pain. He was evaluated by cardiology on 11/05/2023 and taken for cardiac catheterization on 11/06/2023. Cardiac catheterization demonstrated triple-vessel disease involving the LAD and multiple segments with previously stented obtuse marginal vessel and a high-grade stenosis as well as high-grade stenosis of the mid RCA and mild left ventricular systolic function reduction. With the abnormalities noted on the CTA of his chest abdomen pelvis and MRI was performed and demonstrated that the mass was a 3.7 cm aneurysm of the left renal artery that had partially thrombosed so it appeared to be more chronic than acute. With these findings, cardiology felt he was now appropriate for transfer to tertiary center for consideration of cardiac bypass. The case was discussed with Dr. Morales from CT surgery at [facility] in [place] and he accepted the patient for transfer to their cardiac ICU. The patient was discharged in stable condition on 11/06/2023 to [facility]. He was maintained on aggressive medical therapy while hospitalized. 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 Lactic acidosis-resolved Hypoxia-resolved Abdominal pain-resolved BARRETT DM-2 GERD Essential hypertension Hyperlipidemia Hypothyroidism Obesity Physical Exam Const alert, oriented x3, no apparent distress, no limitations and well nourished; Negative for average body habitus or healthy appearing Constitutional Narrative: Obese, upper middle-aged, white male sitting up in a chair at the bedside, watching television, appears older than stated age, appears chronically ill but currently nontoxic and appears comfortable General Appearance: cooperative, comfortable, well kempt and well developed Exam Limitations: no limitations Nutritional Appearance: obese HEENT normocephalic, head/scalp atraumatic and moist oral mucous membranes; Negative for hearing grossly normal bilaterally HEENT Narrative: Dentition is poor, Mallampati is 3, no thrush, mild hearing loss noted Eyes PERRL, EOMs intact bilaterally and conjunctivae normal Eyes Narrative: No scleral icterus Neck no lymphadenopathy and supple Neck Narrative: Trachea midline, no thyroid enlargement Resp normal respiratory effort, no retractions, no use of accessory muscles and No clear to auscultation bilaterally Resp Narrative: Diminished but clear Auscultation: Negative for rales, rhonchi or wheezes Cardio regular rate, regular rhythm, S1 normal heart sound, S2 normal heart sound, no murmurs, no rub, no gallops and no clicks GI normal to inspection, nondistended, normoactive bowel sounds, soft to palpation and non-tender Extremity Extremity Narrative: Trace bilateral lower extremity edema edema, pedal pulses are 2+, no cyanosis or clubbing Skin No no rashes or lesions noted, no wounds, skin turgor normal and no jaundice Skin Narrative: Skin changes on upper and lower extremities consistent with previous sun exposure Neuro oriented x3, CN's II-XII intact bilaterally, moves all extremities and no focal motor deficits Speech: speech normal Psych affect normal Psych Narrative: Very friendly, interacts appropriately, eye contact is good Weight / BMI Weight Weight: 109.2 kg Body Mass Index (BMI) 38.8 ABG / Lab / Microbiology Data 11/06/23 05:52 11/06/23 05:52 Laboratory: Laboratory Results - last 24 hr 11/05/23 06:11: Hemoglobin A1c 6.5 H 11/05/23 16:32: POC Glucose 140 H 11/05/23 21:43: POC Glucose 110 H 11/06/23 05:52: WBC 6.3, RBC 5.26, Hgb 16.5, Hct 49.6, MCV 94.3 H, MCH 31.4, MCHC 33.3, RDW Std Deviation 44.2 H, RDW Coeff of Benitez 12.8, Plt Count 106 L, MPV 9.6, Sodium 136, Potassium 4.0, Chloride 103, Carbon Dioxide 25.0, Anion Gap 8, BUN 15, Creatinine 1.03, Estim Creat Clear Calc 88.41, Est GFR (MDRD) Af Amer 95, Est GFR (MDRD) Non-Af 78, BUN/Creatinine Ratio 14.6, Glucose 132 H, Calcium 9.1 11/06/23 06:30: POC Glucose 158 H 11/06/23 12:58: POC Glucose 159 H Microbiology: Microbiology 11/04/23 14:34 Blood Culture (Wb) - Anticubital Right Blood Culture - Preliminary No growth in 48 hours. 11/04/23 14:15 Blood Culture (Wb) - Anticubital Right Blood Culture - Preliminary No growth in 48 hours. Radiography Diagnostic Testing: Radiology Impression Abdomen MRI 11/06/23 07:59 IMPRESSION: 1. 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 2. Irregular liver suggestive of early cirrhosis. Electronically Signed: Dipak Tierney MD at 13:54 EDT , Meaningful Use Info Meaningful Use Meaningful Use Diagnoses (Choose all that apply): None applicable Ischemic Stroke Statin Dosing Therapy Reference: STATIN DOSE THERAPY REFERENCE: * Patients > 75 years receive moderate or high dose statin therapy. * Patients 75 years or YOUNGER should receive HIGH intensity statin dose unless contraindicated. You will be required to document reason for non-treatment if statin daily dose does not meet guidelines. HIGH DOSE STATIN THERAPY DAILY Atorvastatin > than or = to 40 mg Rosuvastatin > than or = to 20 mg Amlodipine + Atorvastatin > than or = to 2.5/40 mg Ezetimibe + Simvastatin 10/80 mg Simvastatin 80mg Discharge Plan Admission Admit Date/Time: 11/04/23 14:45 Primary Reason for Your Visit: Chest pain Attending Provider: Janell Santiago Primary Care Provider: Tk Dowell Consulting Providers: Molina Artis; Eva Katz Discharge Orders/Prescriptions Prescriptions: No Action pantoprazole 40 mg tablet,delayed release (DR/EC) 40 mg PO DAILY Qty: 30 11RF metformin 500 mg tablet 500 mg PO BID Qty: 60 3RF quinapril 20 mg tablet 20 mg PO QPM Patient Comments: TAKE 1 TABLET BY MOUTH ONCE DAILY WITH SUPPER cholecalciferol (vitamin D3) 25 mcg (1,000 unit) capsule 25 mcg PO DAILY ramipril 10 mg capsule 10 mg PO DAILY aspirin 81 MG tablet,chewable 81 mg PO DAILYCM Qty: 30 0RF clopidogrel [Plavix] 75 mg tablet 75 mg PO DAILY Qty: 30 11RF atorvastatin 40 mg tablet See Rx Instructions .ROUTE .COMPLEX Qty: 90 3RF Dose Instruction: TAKE 1 TABLET BY MOUTH AT BEDTIME Rx Instructions: TAKE 1 TABLET BY MOUTH AT BEDTIME carvedilol 12.5 mg tablet 12.5 mg PO BID Qty: 180 3RF levothyroxine 50 mcg tablet 50 mcg PO DAILY Qty: 90 4RF amlodipine 10 mg tablet 10 mg PO DAILY Qty: 90 3RF Referrals / Follow Up: Tk Dowell MD [Primary Care Provider] - Disposition Disposition (needs filled in before D/C Order can be placed): Acute Care Hospital Charges/Coding Visit Charges Inpatient E&M: 32804 Disch Hosp >30min
--- NOTE | 2023-11-06 15:04 | PN.HOSP_ITS ---
Reason for Visit Reason for Visit: Diagnoses Hyperlipidemia, unspecified (11/04/23) Acidosis, unspecified (11/04/23) Nicotine dependence, unspecified, uncomplicated (11/04/23) Essential (primary) hypertension (11/04/23) Atherosclerotic heart disease of [place] coronary artery without angina pectoris (11/04/23) Ischemic cardiomyopathy (11/04/23) Other specified diseases of pancreas (11/04/23) Chest pain, unspecified (11/04/23) Hypoxemia (11/04/23) Left upper quadrant abdominal swelling, mass and lump (11/04/23) Presence of coronary angioplasty implant and graft (11/04/23) Objective Data Objective Data Vital Signs: Vital Signs Temp Pulse Resp BP Pulse Ox O2 Del Method O2 Flow Rate 98.1 F 85 16 109/73 97 Nasal Cannula 2 11/06/23 11:20 11/06/23 13:12 11/06/23 13:12 11/06/23 11:20 11/06/23 11:20 11/06/23 11:20 11/06/23 11:20 Oxygen Flow Rate (L/min) 2 Oxygen Delivery Method Nasal Cannula Weight: 109.2 kg Body Mass Index (BMI) 38.8 Intake & Output: Intake and Output for Last 24 Hours 11/04/23 11/05/23 11/06/23 23:59 23:59 23:59 Intake Total 220 / 340 2440 / 2440 256.75 / 256.75 Balance 220 / 340 2440 / 2440 256.75 / 256.75 Lab / Micro Data 11/06/23 05:52 11/06/23 05:52 Labs: Laboratory Results - last 24 hr 11/05/23 06:11: Hemoglobin A1c 6.5 H 11/05/23 16:32: POC Glucose 140 H 11/05/23 21:43: POC Glucose 110 H 11/06/23 05:52: WBC 6.3, RBC 5.26, Hgb 16.5, Hct 49.6, MCV 94.3 H, MCH 31.4, MCHC 33.3, RDW Std Deviation 44.2 H, RDW Coeff of Benitez 12.8, Plt Count 106 L, MPV 9.6, Sodium 136, Potassium 4.0, Chloride 103, Carbon Dioxide 25.0, Anion Gap 8, BUN 15, Creatinine 1.03, Estim Creat Clear Calc 88.41, Est GFR (MDRD) Af Amer 95, Est GFR (MDRD) Non-Af 78, BUN/Creatinine Ratio 14.6, Glucose 132 H, Calcium 9.1 11/06/23 06:30: POC Glucose 158 H 11/06/23 12:58: POC Glucose 159 H Micro: Microbiology 11/04/23 14:34 Blood Culture (Wb) - Anticubital Right Blood Culture - Preliminary No growth in 48 hours. 11/04/23 14:15 Blood Culture (Wb) - Anticubital Right Blood Culture - Preliminary No growth in 48 hours. Radiography Diagnostic Testing: Radiology Impression Abdomen MRI 11/06/23 07:59 IMPRESSION: 1. 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 2. Irregular liver suggestive of early cirrhosis. Electronically Signed: Dipak Tierney MD at 13:54 EDT ,
--- NOTE | 2023-11-06 16:59 | NURSING ---
Called report to Beverley LARKIN at [place]
[2023-11-06 17:02] LABS: Bedside Glucose 122 mg/dL (74-106)
== END 2023-11-06 22:00 | disposition short-term general hospital (02) | DRG 287 ==
LOC: ED 11:45 → PCU 15:13
PROVIDERS: Admitting Provider Internal Medicine; Emergency Provider Emergency Medicine; PCP Family Medicine; Visit Provider Internal Medicine
DX: R07.9 Chest pain, unspecified (principal); E87.20 Acidosis, unspecified; T82.855A Stenosis of coronary artery stent, initial encounter; Z68.41 Body mass index [BMI] 40.0-44.9, adult; D69.6 Thrombocytopenia, unspecified; I72.2 Aneurysm of renal artery; J44.9 Chronic obstructive pulmonary disease, unspecified; E11.9 Type 2 diabetes mellitus without complications; E66.01 Morbid (severe) obesity due to excess calories; I10 Essential (primary) hypertension; E03.9 Hypothyroidism, unspecified; K52.9 Noninfective gastroenteritis and colitis, unspecified; K42.9 Umbilical hernia without obstruction or gangrene; I25.5 Ischemic cardiomyopathy; E78.5 Hyperlipidemia, unspecified; I25.10 Atherosclerotic heart disease of native coronary artery without angina pectoris; K21.9 Gastro-esophageal reflux disease without esophagitis; I25.2 Old myocardial infarction; F17.210 Nicotine dependence, cigarettes, uncomplicated; I45.10 Unspecified right bundle-branch block; Z79.84 Long term (current) use of oral hypoglycemic drugs; Z95.5 Presence of coronary angioplasty implant and graft; Z79.82 Long term (current) use of aspirin; Z79.02 Long term (current) use of antithrombotics/antiplatelets; Y71.2 Prosthetic and other implants, materials and accessory cardiovascular devices associated with adverse incidents
CPT/HCPCS: 36415; 71045; 71275; 74177; 74183; 80048; 80053; 80061; 81001; 82962; 83036; 83605; 83735; 83880; 84100; 84439; 84443; 84484; 85025; 85027; 85610; 87040; 87086; 93005; 93306; 93458; 94640; 94668; 97802; 99152; 99153; 99252; 99285; A9575; J7030; Q9957; Q9967; A4216; C1769; C1894; C8929; G0463; J2405

== ENCOUNTER 2023-11-19 11:11 | Emergency (ER) | payer OTHER, SELFPAY ==
[2023-11-19 11:12] VITALS: BP 101/56; BP 96/61; PULSE 80; RESP 14; TEMP 36.6; O2SAT 91; O2SAT 92
--- NOTE | 2023-11-19 11:43 | EKG12_ITS ---
Test Reason : WEAKNESS Blood Pressure : / mmHG Vent. Rate : 082 BPM Atrial Rate : 082 BPM P-R Int : 114 ms QRS Dur : 148 ms QT Int : 430 ms P-R-T Axes : 049 246 039 degrees QTc Int : 502 ms Normal sinus rhythm Right bundle branch block Abnormal ECG Confirmed by MEENU JACKMAN, KALLI ([id number]), manuscript editor DEMETRI TEAGUE ([id number]) on 11/23/2023 11:06:45 AM Referred By: Confirmed By:KALLI CORRIGAN MD
--- NOTE | 2023-11-19 11:43 | RAD_ITS ---
STUDY: X-RAY CHEST REASON FOR EXAM: Male, 62 years old. Shortness of breath. TECHNIQUE: Single frontal view of the chest. COMPARISON: November 04, 2023 FINDINGS: Mild hyperinflation of the right lung with scattered healed parenchymal granulomatous changes are unaltered. New elevation of the left hemidiaphragm with patchy opacities at the left base most compatible with atelectasis. Minimal blunting of the left costophrenic angle which may represent pleural scarring or small effusion. Stable cardiomegaly. New sternotomy wires. Normal mediastinum and domenic. Prominent central pulmonary arteries. Stable aortic tortuosity with calcification. No abnormality of the visualized soft tissue structures of the upper abdomen. RAD/Chest 1 View (Portable) IMPRESSION: Stable cardiomegaly, hyperinflation and granulomatous changes of the right lung and new elevation of the left hemidiaphragm with basilar opacities most likely representing atelectasis with possibly a small left effusion. Follow-up chest imaging to resolution recommended. Electronically Signed: Carlton Gabriel MD at 12:51 EDT ,
--- NOTE | 2023-11-19 11:47 | EX.ED.DYSGE1 ---
HPI History of Present Illness Chief Complaint: Weakness Informant: patient Narrative Narrative: Patient presents secondary to generalized weakness. Patient underwent triple bypass heart surgery at [facility] on November 09. He was discharged home from the hospital on the . He is currently on midodrine secondary to hypotension. He is also on Coreg as well as Lasix. He has not been monitoring his blood pressures at home. He states that after speaking with his rn internship on the phone yesterday he felt very weak and fatigued. He just wanted to be checked to ensure there was nothing wrong. He had some abdominal pain earlier today where he has an abdominal hernia, but states that is completely resolved at this time. [facility] Medical History Diabetes mellitus, type 2 Erythrocytosis Thrombocytopenia Ischemic cardiomyopathy Essential hypertension Nicotine dependence History of non-ST elevation myocardial infarction (NSTEMI) (01/22/20) Black stool Atherosclerotic heart disease of [place] coronary artery without angina pectoris Hyperlipidemia Borderline diabetes Hyperglycemia Home Medications ?Medication ?Instructions ?Recorded ?Last Taken ?Type aspirin 81 mg chewable tablet 81 mg PO DAILYCM ##30 01/24/20 11/04/23 Rx metformin 500 mg tablet 500 mg PO BID #60 tabs 02/17/20 11/04/23 Rx pantoprazole 40 mg tablet,delayed 40 mg PO DAILY #30 tabs 02/17/20 Unknown Rx release clopidogrel 75 mg tablet (Plavix) 75 mg PO DAILY #30 tabs 03/06/21 Unknown Rx quinapril 20 mg tablet 20 mg PO QPM 10/03/21 Unknown History cholecalciferol (vitamin D3) 25 25 mcg PO DAILY 02/10/23 Unknown History mcg (1,000 unit) capsule ramipril 10 mg capsule 10 mg PO DAILY 02/10/23 Unknown History atorvastatin 40 mg tablet See Rx Instructions .Route 04/28/23 Unknown Rx .COMPLEX #90 tabs carvedilol 12.5 mg tablet 12.5 mg PO BID #180 tabs 04/30/23 Unknown Rx levothyroxine 50 mcg tablet 50 mcg PO DAILY #90 tabs 07/22/23 Unknown Rx amlodipine 10 mg tablet 10 mg PO DAILY #90 tabs 08/17/23 Unknown Rx Allergy/AdvReac Type Severity Reaction Status Date / Time No Known Allergies Allergy Verified 11/19/23 11:12 Surgical History S/P triple vessel bypass History of coronary artery stent placement (01/23/20) Social History Smoking Status: Former smoker alcohol intake: never substance use type: does not use caffeine: Yes Type: coffee Number of servings: 1 ROS ROS ED Constitutional Constitutional ED: Denies chills or fever(s) Eyes Eyes: Denies discharge from eye(s) ENT ENT ED: Denies discharge from eye(s), rhinorrhea or sore throat Cardiovascular Cardiovascular: Denies chest pain Respiratory/Chest Respiratory/Chest: Denies cough or dyspnea Gastrointestinal Gastrointestinal: Reports abdominal pain; Denies diarrhea, nausea or vomiting Genitourinary Genitourinary ED: Denies dysuria Musculoskeletal Musculoskeletal: Denies back pain or extremity pain Integumentary Denies Abrasions or rash Neurologic Neurologic: Reports weakness; Denies headache(s) Psychiatric Psychiatric: Denies anxiety or depression Allergic/Immunologic Allergic/Immunologic ED: Denies lip swelling or urticaria EXAM Physical Exam Const Vital Signs: 11/19/23 11:12 11/19/23 11:12 11/19/23 11:35 Temperature 97.9 F Temperature Source Temporal Pulse Rate 80 80 Respiratory Rate 14 14 Respiratory Effort Normal Respiratory Pattern Normal Blood Pressure 96/61 101/56 L Blood Pressure Mean 72 71 Pulse Ox 92 91 Oxygen Delivery Method Room Air Room Air 11/19/23 13:12 Temperature Temperature Source Pulse Rate 72 Respiratory Rate 16 Respiratory Effort Respiratory Pattern Blood Pressure 106/73 Blood Pressure Mean 84 Pulse Ox 97 Oxygen Delivery Method Room Air Positive well nourished and well developed General Appearance ED: well developed HEENT Reports moist mucous membranes Eyes EOMs intact bilaterally Chest Wall Chest Narrative: Chest wall incision clean with no sign of infection. Resp normal respiratory effort and clear to auscultation bilaterally Cardio regular rate and regular rhythm GI GI Narrative: Abdomen soft, obese, nontender. Active bowel sounds noted. Extremity Extremity Narrative: Ecchymosis noted on the medial left thigh. Neuro oriented x3 Neuro Narrative: No focal neurologic deficit. MDM MDM MDM Narrative Medical decision making narrative: Patient placed on security monitor. IV line initiated. Patient's initial systolic blood pressure in the room was in the 80s. He will be given a 250 cc IV fluid bolus. EKG obtained to evaluate for cardiac arrhythmia/ischemia. Chest x-ray obtained to evaluate for acute lung pathology, cardiac size, or mediastinal abnormality. Labwork obtained to evaluate for leukocytosis, anemia, and electrolyte derangement. History & Record Review Discussion w/independent historian: Patient Lab Data Attestation: I reviewed the patient's lab results. Labs: Laboratory Results - last 24 hr 11/19/23 12:30 WBC 5.4 RBC 4.07 L Hgb 12.9 L Hct 39.3 L MCV 96.6 H MCH 31.7 MCHC 32.8 RDW Std Deviation 47.2 H RDW Coeff of [place] 13.5 Plt Count 157 MPV 9.2 Immature Gran % (Auto) 0.400 Neut % (Auto) 59.5 Lymph % (Auto) 24.9 [place] % (Auto) 13.5 H Eos % (Auto) 1.1 Baso % (Auto) 0.6 Absolute Neuts (auto) 3.2 Absolute Lymphs (auto) 1.35 Nucleated RBC % 0 Sodium 135 L Potassium 4.3 Chloride 99 Carbon Dioxide 31.0 Anion Gap 5 BUN 29 H Creatinine 1.48 H Est GFR (MDRD) Af Amer 62 Est GFR (MDRD) Non-Af 51 L BUN/Creatinine Ratio 19.6 Glucose 124 H Calcium 9.2 Total Bilirubin 0.60 Direct Bilirubin 0.21 AST 45 H ALT 37 Alkaline Phosphatase 73 Total Protein 7.3 Albumin 3.0 L Globulin 4.3 H Radiography Diagnostic Testing: Clinical Impression(s) from Imaging Studies Chest X-Ray 11/19/23 11:43 IMPRESSION: Stable cardiomegaly, hyperinflation and granulomatous changes of the right lung and new elevation of the left hemidiaphragm with basilar opacities most likely representing atelectasis with possibly a small left effusion. Follow-up chest imaging to resolution recommended. Electronically Signed: Carlton Gabriel MD at 12:51 EDT , EKG Initial EKG: Attestation: I personally reviewed and interpreted this EKG as follows: Interpretation: Sinus Rhythm (Sinus 82 with right bundle branch block. No evidence of acute ischemia.) Treatment and Re-Evaluation :: CBC reveals normal white count 5.4 with normal differential. Hemoglobin is 12.9. Chemistry studies reveal a send of 135, BUN 29, creatinine of 1.48. Glucose is 124. LFTs unremarkable. As able to review labs obtained on the at the time of his discharge. Hemoglobin was 12.8 at that time. His sodium was 137, potassium 4.2, BUN 33, creatinine 1.21. Portable chest x-ray per my interpretation was chronic changes with small pleural effusion. Radiology interpretation is reviewed and agrees. Patient had been placed on oxygen here for O2 sats around 88 to 89% on room air. I did read his discharge summary and patient had been on and off oxygen while in the hospital and was discharged with an O2 sat of 90% on room air. Patient's blood pressure did improve with small fluid boluses. He had taken midodrine approximately 2 hours prior to my initial evaluation. Patient will follow-up with his primary care physician tomorrow. He is comfortable with our plan at this time. We been able to take patient off of oxygen and his O2 sat is remaining around 91% on room air. Discharge Plan Triage Chief Complaint: Weakness Other Complaint: Abd Pain ED Provider: Sissy Garcia Dx/Rx/DC Orders Clinical Impression: Postop check, Dehydration, Weakness Instructions: ED Dehydration (Adult), ED Weakness (Uncertain Cause) Prescriptions: No Action pantoprazole 40 mg tablet,delayed release (DR/EC) 40 mg PO DAILY Qty: 30 11RF metformin 500 mg tablet 500 mg PO BID Qty: 60 3RF quinapril 20 mg tablet 20 mg PO QPM Patient Comments: TAKE 1 TABLET BY MOUTH ONCE DAILY WITH SUPPER cholecalciferol (vitamin D3) 25 mcg (1,000 unit) capsule 25 mcg PO DAILY ramipril 10 mg capsule 10 mg PO DAILY aspirin 81 MG tablet,chewable 81 mg PO DAILYCM Qty: 30 0RF clopidogrel [Plavix] 75 mg tablet 75 mg PO DAILY Qty: 30 11RF atorvastatin 40 mg tablet See Rx Instructions .ROUTE .COMPLEX Qty: 90 3RF Dose Instruction: TAKE 1 TABLET BY MOUTH AT BEDTIME Rx Instructions: TAKE 1 TABLET BY MOUTH AT BEDTIME carvedilol 12.5 mg tablet 12.5 mg PO BID Qty: 180 3RF levothyroxine 50 mcg tablet 50 mcg PO DAILY Qty: 90 4RF amlodipine 10 mg tablet 10 mg PO DAILY Qty: 90 3RF Primary Care Provider: Tk Dowell Referrals: Tk Dowell MD [Primary Care Provider] - [facility] appointment Print Language: Czech Disposition Disposition: Home, Self Care
[2023-11-19 12:42] LABS: Absolute Lymphocyte Count 1.35 X10^3/uL (0.83-4.51); Absolute Neutrophil Count 3.2 X10^3/uL (2.0-7.7); Basophil# 0.03 X10^3/uL; Basophil% 0.6 % (0-1); Eosinophil# 0.06 X10^3/uL; Eosinophils% 1.1 % (0-5); Hematocrit 39.3 % (40-54); Hemoglobin 12.9 g/dL (13.0-16.5); Lymphocyte # 1.35 X10^3/ul (0.83-4.51); Lymphocyte % 24.9 % (19-41); Mean Corp Hgb Conc 32.8 g/dL (32-36); Mean Corpuscular Hgb 31.7 pg (27.0-32.0); Mean Corpuscular Volume 96.6 fL (80-94); Mean Platelet Vol. 9.2 fl (6.2-12.0); Monocyte# 0.73 X10^3/uL; Monocyte% 13.5 % (0-10); NRBC Flagged by Analyzer 0 % (0-5); Neutrophil # 3.23 X10^3/uL (2.7-7.7); Neutrophil % 59.5 % (47-70); Platelet Count 157 K/mm3 (150-450); RBC Distribution Width CV 13.5 % (11.6-14.6); RBC Distribution Width SD 47.2 fl (35.1-43.9); Red Blood Count 4.07 M/mm3 (4.6-6.2); White Blood Count 5.4 K/mm3 (4.4-11.0)
[2023-11-19] MEDS: 0.9% Normal Saline (500mL Bag) 250 ML 999 ML IV (13:04)
[2023-11-19 13:12] VITALS: BP 106/73; PULSE 72; RESP 16; O2SAT 97
[2023-11-19 13:34] LABS: AST(SGOT) 45 U/L (15-37); Alanine Aminotransfer ALT/SGPT 37 U/L (16-61); Alkaline Phosphatase 73 U/L (45-117); Anion Gap 5 (5-15); BUN 29 mg/dL (7-18); BUN/Creat Ratio 19.6 RATIO (10-20); Bilirubin, Direct 0.21 mg/dL (0.00-0.30); Calcium,Total 9.2 mg/dL (8.5-10.1); Chloride 99 mmol/L (98-107); Creatinine, Serum 1.48 mg/dL (0.70-1.30); EST Glomerular Filtration Rate 51 mL/min (>60); Est Glom Filt Rate - Afr Amer 62 mL/min (>60); Globulin 4.3 g/dL (2.2-4.2); Glucose 124 mg/dL (74-106); Potassium 4.3 mmol/L (3.5-5.1); Protein, Total 7.3 g/dL (6.4-8.2); Sodium Level 135 mmol/L (136-145)
[2023-11-19] MEDS: 0.9% Normal Saline (500mL Bag) 500 ML 999 ML IV (14:16)
[2023-11-19 15:00] VITALS: BP 95/70; PULSE 55; RESP 18; TEMP 36; O2SAT 92
== END 2023-11-19 15:07 | disposition home or self-care (01) ==
PROVIDERS: Emergency Provider Emergency Medicine; PCP Family Medicine; Visit Provider Emergency Medicine
DX: E86.0 Dehydration (principal); E11.9 Type 2 diabetes mellitus without complications; E78.5 Hyperlipidemia, unspecified; I10 Essential (primary) hypertension; I25.10 Atherosclerotic heart disease of native coronary artery without angina pectoris; I95.9 Hypotension, unspecified; Z87.891 Personal history of nicotine dependence; R53.1 Weakness; Z95.1 Presence of aortocoronary bypass graft; Z98.890 Other specified postprocedural states; Z79.899 Other long term (current) drug therapy; R10.9 Unspecified abdominal pain
CPT/HCPCS: 71045; 80048; 80076; 85025; 93005; 96360; 96361; 96374; 96375; 99285; J7040; J7050; A4216

== ENCOUNTER → 2024-01-26 | Outpatient (CLI) | payer OTHER, SELFPAY ==
--- NOTE | 2024-01-26 13:54 | RAD_ITS ---
STUDY: X-RAY CHEST REASON FOR EXAM: Male, 63 years old. Left posterior dullness to percussion. TECHNIQUE: Frontal and lateral views of the chest on 4 images. COMPARISON: November 19, 2023 FINDINGS: Mild hyperinflation with patchy scarring at both bases with elevation of the left hemidiaphragm, unchanged. Lining of the left costophrenic angle which may represent pleural thickening or small pleural effusion, unchanged. Stable cardiomegaly with sternotomy wires. Normal mediastinum and domenic. Normal visualized pulmonary arteries. Aortic tortuosity with calcification unchanged. Stable thoracic osteopenia with diffuse mild thoracic spondylosis. Normal visualized ribs, clavicles, and shoulders. No abnormality of the visualized soft tissue structures of the upper abdomen. RAD/Chest PA and Lateral IMPRESSION: Stable chest with no acute or active cardiopulmonary disease. Electronically Signed: Carlton Gabriel MD at 14:54 EDT ,
[2024-01-26 16:05] LABS: Microalbumin:Creatinine Ratio 743.7 mg/g CRE (<30 mg/g CRE)
[2024-01-26 17:57] LABS: Erythrocyte Sedimentation Rate 5 mm/hr (0-20)
[2024-01-26 17:59] LABS: Absolute Lymphocyte Count 1.65 X10^3/uL (0.83-4.51); Absolute Neutrophil Count 3.8 X10^3/uL (2.0-7.7); Basophil# 0.04 X10^3/uL; Basophil% 0.6 % (0-1); Eosinophil# 0.31 X10^3/uL; Eosinophils% 4.8 % (0-5); Hematocrit 49.9 % (40-54); Hemoglobin 15.6 g/dL (13.0-16.5); Lymphocyte # 1.65 X10^3/ul (0.83-4.51); Lymphocyte % 25.6 % (19-41); Mean Corp Hgb Conc 31.3 g/dL (32-36); Mean Corpuscular Hgb 30.1 pg (27.0-32.0); Mean Corpuscular Volume 96.1 fL (80-94); Mean Platelet Vol. 10.1 fl (6.2-12.0); Monocyte# 0.66 X10^3/uL; Monocyte% 10.2 % (0-10); NRBC Flagged by Analyzer 0 % (0-5); Neutrophil # 3.77 X10^3/uL (2.7-7.7); Neutrophil % 58.6 % (47-70); Platelet Count 143 K/mm3 (150-450); RBC Distribution Width CV 14.4 % (11.6-14.6); RBC Distribution Width SD 50.8 fl (35.1-43.9); Red Blood Count 5.19 M/mm3 (4.6-6.2); White Blood Count 6.4 K/mm3 (4.4-11.0)
[2024-01-26 18:29] LABS: ALB/GLOB Ratio 0.9 RATIO (0.9-2.4); AST(SGOT) 28 U/L (15-37); Alanine Aminotransfer ALT/SGPT 29 U/L (16-61); Albumin, Serum 3.5 g/dL (3.2-5.0); Alkaline Phosphatase 89 U/L (45-117); Anion Gap 3 (5-15); BUN 9 mg/dL (7-18); BUN/Creat Ratio 10.2 RATIO (10-20); CRP < 2.90 mg/L (0.0-3.0); Calcium,Total 9.9 mg/dL (8.5-10.1); Chloride 103 mmol/L (98-107); Creatinine, Serum 0.88 mg/dL (0.70-1.30); EST Glomerular Filtration Rate 93 mL/min (>60); Est Glom Filt Rate - Afr Amer 113 mL/min (>60); Globulin 4.1 g/dL (2.2-4.2); Glucose 77 mg/dL (74-106); Magnesium 1.6 mg/dL (1.6-2.6); Potassium 3.9 mmol/L (3.5-5.1); Protein, Total 7.6 g/dL (6.4-8.2); Sodium Level 140 mmol/L (136-145)
[2024-01-26 18:47] LABS: BNP,B-Type NATRIURETIC PEPTIDE 246.5 pg/mL (0-100)
[2024-01-28 13:08] LABS: DHEA Sulfate 22.9 ug/dL (48.9-344.2); PROEL- A/G Ratio 1.1 (0.7-1.7); PROEL- Albumin 3.6 g/dL (2.9-4.4); PROEL- Alpha-1 Globulin 0.2 g/dL (0.0-0.4); PROEL- Alpha-2 Globulin 0.8 g/dL (0.4-1.0); PROEL- Beta Globulin 1.1 g/dL (0.7-1.3); PROEL- Gamma Globulin 1.2 g/dL (0.4-1.8); PROEL- Globulin, Total 3.3 g/dL (2.2-3.9); PROEL- TOTAL PROTEIN 6.9 g/dL (6.0-8.5); PROEL-M-Spike Not Observed g/dL (Not Observed)
[2024-01-29 04:07] LABS: CRP, High Sensitivity < 0.15 mg/L (0.00-3.00)
== END | disposition home or self-care (01) ==
LOC: MTLAB 13:54
PROVIDERS: PCP Family Medicine; Referring Provider Family Medicine; Visit Provider Family Medicine
DX: I50.32 Chronic diastolic (congestive) heart failure (principal); E27.9 Disorder of adrenal gland, unspecified; N18.2 Chronic kidney disease, stage 2 (mild); R09.89 Other specified symptoms and signs involving the circulatory and respiratory systems
CPT/HCPCS: 36415; 71046; 80053; 82043; 82533; 82570; 82627; 83735; 83880; 84165; 85025; 85652; 86140; 86141; 82626

== ENCOUNTER → 2024-02-24 | Outpatient (CLI) | payer OTHER, SELFPAY ==
[2024-02-24 12:17] LABS: Absolute Lymphocyte Count 1.12 X10^3/uL (0.83-4.51); Absolute Neutrophil Count 2.2 X10^3/uL (2.0-7.7); Basophil# 0.04 X10^3/uL; Eosinophil# 0.16 X10^3/uL; Eosinophils% 4.1 % (0-5); Hematocrit 49.6 % (40-54); Hemoglobin 15.5 g/dL (13.0-16.5); Lymphocyte # 1.12 X10^3/ul (0.83-4.51); Mean Corp Hgb Conc 31.3 g/dL (32-36); Mean Corpuscular Hgb 30.1 pg (27.0-32.0); Mean Corpuscular Volume 96.3 fL (80-94); Monocyte# 0.37 X10^3/uL; Monocyte% 9.6 % (0-10); NRBC Flagged by Analyzer 0 % (0-5); Neutrophil # 2.17 X10^3/uL (2.7-7.7); Neutrophil % 56.3 % (47-70); Platelet Count 104 K/mm3 (150-450); RBC Distribution Width CV 14.6 % (11.6-14.6); Red Blood Count 5.15 M/mm3 (4.6-6.2); White Blood Count 3.9 K/mm3 (4.4-11.0)
[2024-02-24 13:24] LABS: ALB/GLOB Ratio 0.8 RATIO (0.9-2.4); AST(SGOT) 23 U/L (15-37); Alanine Aminotransfer ALT/SGPT 29 U/L (16-61); Albumin, Serum 3.2 g/dL (3.2-5.0); Alkaline Phosphatase 92 U/L (45-117); Anion Gap 3 (5-15); BUN 14 mg/dL (7-18); BUN/Creat Ratio 14.3 RATIO (10-20); Calcium,Total 9.4 mg/dL (8.5-10.1); Chloride 101 mmol/L (98-107); Creatinine, Serum 0.98 mg/dL (0.70-1.30); EST Glomerular Filtration Rate 82 mL/min (>60); Est Glom Filt Rate - Afr Amer 100 mL/min (>60); Globulin 4.2 g/dL (2.2-4.2); Glucose 138 mg/dL (74-106); Protein, Total 7.4 g/dL (6.4-8.2); Sodium Level 136 mmol/L (136-145)
== END | disposition home or self-care (01) ==
LOC: MTLAB 10:03
PROVIDERS: PCP Family Medicine; Referring Provider Family Medicine; Visit Provider Family Medicine
DX: M79.89 Other specified soft tissue disorders (principal)
CPT/HCPCS: 36415; 80053; 83735; 85025

== ENCOUNTER → 2024-06-30 | Outpatient (CLI) | payer MEDICAID, SELFPAY ==
[2024-06-30 15:00] LABS: Absolute Lymphocyte Count 1.39 X10^3/uL (0.83-4.51); Absolute Neutrophil Count 3.4 X10^3/uL (2.0-7.7); Basophil# 0.05 X10^3/uL; Basophil% 0.9 % (0-1); Eosinophils% 3.6 % (0-5); Hematocrit 53.2 % (40-54); Hemoglobin 16.8 g/dL (13.0-16.5); Lymphocyte # 1.39 X10^3/ul (0.83-4.51); Lymphocyte % 25.1 % (19-41); Mean Corp Hgb Conc 31.6 g/dL (32-36); Mean Corpuscular Hgb 30.9 pg (27.0-32.0); Mean Corpuscular Volume 97.8 fL (80-94); Mean Platelet Vol. 10.5 fl (6.2-12.0); Monocyte# 0.51 X10^3/uL; Monocyte% 9.2 % (0-10); NRBC Flagged by Analyzer 0 % (0-5); Neutrophil # 3.37 X10^3/uL (2.7-7.7); Platelet Count 107 K/mm3 (150-450); RBC Distribution Width CV 14.6 % (11.6-14.6); RBC Distribution Width SD 52.3 fl (35.1-43.9); Red Blood Count 5.44 M/mm3 (4.6-6.2); White Blood Count 5.5 K/mm3 (4.4-11.0)
[2024-06-30 15:08] LABS: Prothrombin Time (Protime)PT. 13.7 SECONDS (11.7-14.9)
[2024-06-30 15:45] LABS: Hemoglobin A1c 6.7 % (<=5.6)
[2024-06-30 16:04] LABS: AST(SGOT) 27 U/L (<=37); Alanine Aminotransfer ALT/SGPT 16 U/L (<=46); Albumin, Serum 4.1 g/dL (3.4-4.8); Alkaline Phosphatase 97 U/L (40-129); Anion Gap 10 (5-15); BUN 18 mg/dL (4-19); BUN/Creat Ratio 16.4 RATIO (10-20); Calcium 9.8 mg/dL (7.6-11.0); Carbon Dioxide 30.5 mmol/L (22.0-29.0); Chloride 101 mmol/L (96-108); Creatinine, Serum 1.1 mg/dL (0.8-1.3); EST Glomerular Filtration Rate 79 (>60); Globulin 3.9 g/dL (2.2-4.2); Glucose 136 mg/dL (70-99); Potassium 4.3 mmol/L (3.3-5.1); Protein, Total 7.9 g/dL (5.9-8.4); Sodium Level 142 mmol/L (133-145); Total Bilirubin 0.87 mg/dL (0.00-1.30); Vitamin B12 449 pg/mL (180-914)
[2024-06-30 16:15] LABS: Microalbumin,Random Urine 83.2 mg/L (NO RANGE EST.); Microalbumin:Creatinine Ratio 3649.1 mg/g CRE
== END | disposition home or self-care (01) ==
LOC: MFPLAB 11:33
PROVIDERS: PCP Family Medicine; Referring Provider Family Medicine; Visit Provider Family Medicine
DX: K74.60 Unspecified cirrhosis of liver (principal); E11.59 Type 2 diabetes mellitus with other circulatory complications
CPT/HCPCS: 36415; 80053; 82043; 82570; 82607; 83036; 84443; 85025; 85610

== ENCOUNTER → 2024-07-27 | Outpatient (CLI) | payer MEDICAID, SELFPAY | END | disposition home or self-care (01) | LOC: PSN 10:23 | PROVIDERS: PCP Family Medicine; Referring Provider Internal Medicine Critical Care Medicine; Visit Provider Internal Medicine Critical Care Medicine | DX: F17.211 Nicotine dependence, cigarettes, in remission (principal); J44.9 Chronic obstructive pulmonary disease, unspecified | CPT/HCPCS: 94060; 94726; 94729 ==

== ENCOUNTER → 2024-07-28 | Outpatient (CLI) | payer MEDICAID, SELFPAY ==
[2024-07-28 12:40] VITALS: PULSE 67; PULSE 69; PULSE 73; PULSE 79; PULSE 81; PULSE 82; PULSE 85; PULSE 94; O2SAT 87; O2SAT 89; O2SAT 91; O2SAT 93; O2SAT 96
--- NOTE | 2024-08-01 10:19 | PCM.PSN.6M ---
PSN 6 Minute Walk Test 6 Minute Walk Test 6 Minute Walk Test: 6 Minute Walk Test PSN:6-Minute Walk Test Start: 07/28/24 12:40 Freq: Status: Active Protocol: RESP.6MINW Document 07/28/24 12:40 NILDA (Rec: 07/28/24 12:44 ALESSIAON [id number]) 6 Minute Walk Test Date Performed 07/28/24 Time Performed 12:30 Height 5 ft 6 in Weight: 220 lb Weight in Pounds [address]: Ricardo Call Assistive device None used: Pre-test Oxygen Delivery Room Air Method Pulse Ox (%) 91 Pulse Rate (60-100 67 beats/min) Dyspnea Randal Scale ( 0 0-10) Exertion Randal Scale 6 (6-20) 1st minute Oxygen Delivery Room Air Method Pulse Ox (%) 87 Pulse Rate (60-100 73 beats/min) 2nd minute Oxygen Flow Rate (L/ 2 min) (L/min) Oxygen Delivery Nasal Cannula Method Pulse Ox (%) 91 Pulse Rate (60-100 81 beats/min) 3rd minute Oxygen Flow Rate (L/ 2 min) (L/min) Oxygen Delivery Nasal Cannula Method Pulse Ox (%) 87 Pulse Rate (60-100 82 beats/min) 4th minute Oxygen Flow Rate (L/ 3 min) (L/min) Oxygen Delivery Nasal Cannula Method Pulse Ox (%) 93 Pulse Rate (60-100 79 beats/min) 5th minute Oxygen Flow Rate (L/ 3 min) (L/min) Oxygen Delivery Nasal Cannula Method Pulse Ox (%) 89 Pulse Rate (60-100 85 beats/min) 6th minute Oxygen Flow Rate (L/ 3 min) (L/min) Oxygen Delivery Nasal Cannula Method Pulse Ox (%) 89 Pulse Rate (60-100 94 beats/min) Dyspnea Randal Scale ( 3 0-10) Exertion Randal Scale 13 (6-20) Post-test Oxygen Flow Rate (L/ 3 min) (L/min) Oxygen Delivery Nasal Cannula Method Pulse Ox (%) 96 Pulse Rate (60-100 69 beats/min) Full Laps Walked 12 Partial Lap, Number 2 of Tiles Walked Total Distance 710 Walked (ft) Interpretation Interpretation: The patient ambulated 710 feet over the course of 6 minutes beginning on room air without assistive devices. Pretesting oxygen saturation was noted to be 91% on room air. With ambulation, the patient desaturated on several occasions, requiring 3 L/min of supplemental oxygen to maintain appropriate saturations with exertion. Recommendations Recommendations: 3 L/min of supplemental oxygen should be utilized with exertion.
== END | disposition home or self-care (01) ==
LOC: PSN 12:08
PROVIDERS: PCP Family Medicine; Referring Provider Internal Medicine Critical Care Medicine; Visit Provider Internal Medicine Critical Care Medicine
DX: J44.9 Chronic obstructive pulmonary disease, unspecified (principal); F17.211 Nicotine dependence, cigarettes, in remission
CPT/HCPCS: 94618

== ENCOUNTER → 2024-11-07 | Outpatient (CLI) | payer MEDICAID, SELFPAY ==
[2024-11-07 13:58] LABS: AST(SGOT) 34 U/L (<=37); Alanine Aminotransfer ALT/SGPT 29 U/L (<=46); Albumin, Serum 3.9 g/dL (3.4-4.8); Alkaline Phosphatase 85 U/L (40-129); Anion Gap 10 (5-15); BUN 22 mg/dL (4-19); BUN/Creat Ratio 16.3 RATIO (10-20); Calcium,Total 9.4 mg/dL (7.6-11.0); Carbon Dioxide 28.2 mmol/L (21.0-32.0); Chloride 98 mmol/L (98-108); Cholesterol 110 mg/dL (<=200); Globulin 3.8 g/dL (2.2-4.2); Glucose 169 mg/dL (70-99); Low Density Lipoprotein Calc. 53 mg/dL; Potassium 4.8 mmol/L (3.3-5.1); Triglycerides 125 mg/dL; Very Low Density Lipoprotein 25 mg/dL (5-40); cholesterol:hdl ratio screen 3.45
[2024-11-09 07:08] LABS: Thyroid Stim Immunoglob <0.10 IU/L (0.00-0.55)
== END | disposition home or self-care (01) ==
PROVIDERS: PCP Family Medicine; Referring Provider Internal Medicine Critical Care Medicine; Visit Provider Internal Medicine Critical Care Medicine
DX: E11.59 Type 2 diabetes mellitus with other circulatory complications (principal); J44.9 Chronic obstructive pulmonary disease, unspecified; E03.9 Hypothyroidism, unspecified; F17.211 Nicotine dependence, cigarettes, in remission; I25.10 Atherosclerotic heart disease of native coronary artery without angina pectoris
CPT/HCPCS: 36415; 71271; 80053; 80061; 83036; 84443; 84445

== ENCOUNTER → 2024-12-30 | Outpatient (CLI) | payer BC, SELFPAY ==
--- NOTE | 2024-12-30 11:36 | RAD_ITS ---
EXAM: XR Sternum, 2 or More Views CLINICAL INDICATION: PAIN AND ASYMMETRY S/P CABG/HEALING TECHNIQUE: Lateral and oblique views of the sternum. COMPARISON: No relevant prior studies available. FINDINGS: LUNGS AND PLEURAL SPACES: Linear opacity in the inferior aspect of the sternotomy wires. This may be sutures clinical correlation is recommended. BONES/JOINTS: Sternotomy wires. SOFT TISSUES: Unremarkable. RAD/Sternum min 2 Views IMPRESSION: 1. Linear opacity in the inferior aspect of the sternotomy wires. This may be sutures clinical correlation is recommended. 2. Postoperative changes as above. Reading Location: [id number]
== END | disposition home or self-care (01) ==
LOC: MTRAD 11:35
PROVIDERS: PCP Family Medicine; Referring Provider Family Medicine; Visit Provider Family Medicine
DX: R07.89 Other chest pain (principal)
CPT/HCPCS: 71120

== ENCOUNTER → 2025-03-02 | Outpatient (CLI) | payer BC, SELFPAY ==
[2025-03-02 12:36] LABS: Hematocrit 53.5 % (40-54); Hemoglobin 17.6 g/dL (13.0-16.5); Immature Granulocytes Count 0.010 X10^3/uL (0.0-0.0); Mean Corp Hgb Conc 32.9 g/dL (32-36); Mean Corpuscular Volume 95.5 fL (80-94); Mean Platelet Vol. 9.8 fl (6.2-12.0); NRBC Flagged by Analyzer 0 % (0-5); Platelet Count 112 K/mm3 (150-450); RBC Distribution Width CV 12.9 % (11.6-14.6); RBC Distribution Width SD 46.1 fl (35.1-43.9); Red Blood Count 5.60 M/mm3 (4.6-6.2); White Blood Count 6.4 K/mm3 (4.4-11.0)
[2025-03-02 13:11] LABS: AST(SGOT) 28 U/L (<=37); Alanine Aminotransfer ALT/SGPT 27 U/L (<=46); Albumin, Serum 4.0 g/dL (3.4-4.8); Alkaline Phosphatase 85 U/L (40-129); Anion Gap 10 (5-15); BUN 24 mg/dL (4-19); BUN/Creat Ratio 19.5 RATIO (10-20); CRP < 3.00 mg/L (0.0-3.0); Calcium,Total 9.5 mg/dL (7.6-11.0); Carbon Dioxide 28.2 mmol/L (21.0-32.0); Chloride 100 mmol/L (98-108); Globulin 4.0 g/dL (2.2-4.2); Glucose 183 mg/dL (70-99); Potassium 4.5 mmol/L (3.3-5.1)
== END | disposition home or self-care (01) ==
LOC: LAB 11:23
PROVIDERS: PCP Family Medicine; Referring Provider Family Medicine; Visit Provider Family Medicine
DX: R07.89 Other chest pain (principal); I50.32 Chronic diastolic (congestive) heart failure; E11.59 Type 2 diabetes mellitus with other circulatory complications
CPT/HCPCS: 36415; 80053; 85025; 86140